=== PATIENT | male | born 1940 | race Caucasian/White ===

== ENCOUNTER 2022-05-05 11:32 | Outpatient (REF) | payer MEDICARE, OTHER, SELFPAY ==
[2022-05-05 12:45] LABS: Influenza A PCR NEGATIVE (Negative); Influenza B PCR NEGATIVE (Negative); Resp Syncy Virus RNA Qual PCR POSITIVE (Negative); SARS COV2 PCR INHOUSE NEGATIVE (Negative)
== END 2022-05-05 11:33 | disposition home or self-care (01) ==
LOC: HO.LNP 11:32
PROVIDERS: Visit Provider Nurse Practitioner Family
DX: Z20.822 Contact with and (suspected) exposure to COVID-19 (principal); B34.9 Viral infection, unspecified
CPT/HCPCS: 0241U

== ENCOUNTER 2023-05-24 05:44 | Emergency (ER) | payer MEDICARE, OTHER, SELFPAY ==
[2023-05-24 05:48] VITALS: BP 129/71; PULSE 76; RESP 18; TEMP 36.7; O2SAT 99; BMI 29.3
[2023-05-24 07:57] VITALS: BP 140/70; PULSE 76; RESP 15; TEMP 36.8; O2SAT 96
--- NOTE | 2023-05-24 08:45 | ED.GENADULT ---
HPI - General Adult General Chief complaint: General Medical Stated complaint: Fever Time Seen by Provider: 05/24/23 07:54 Source: patient and family Mode of arrival: ambulatory History of Present Illness HPI narrative: This is an 82-year-old male with a history of prostate cancer as well as MSD in comes in with 2 weeks of fevers/chills, fatigue, productive cough, lethargy, decreased appetite but denies any nausea or vomiting but has had persistent diarrhea. Patient states that he saw his physician couple of weeks ago and that he was evaluated at [facility] Emergency Room last week. Related Data Home Medications Medication Instructions Recorded Confirmed apalutamide 60 mg tablet (Erleada) 240 mg PO DAILY 05/04/22 aspirin 81 mg chewable tablet 162 mg PO DAILY 05/04/22 (Pipo Chewable Low Dose Aspirin) atorvastatin 40 mg tablet 40 mg PO DAILY 05/04/22 clopidogrel 75 mg tablet 75 mg PO DAILY 05/04/22 cyanocobalamin (vitamin B-12) 3,000 mcg PO DAILY 05/04/22 2,000 mcg tablet fenofibrate micronized 67 mg 67 mg PO DAILY 05/04/22 capsule ferrous sulfate 325 mg (65 mg 325 mg PO DAILY 05/04/22 iron) tablet metoprolol succinate 50 mg 50 mg PO BID 05/04/22 tablet,extended release 24 hr omeprazole 20 mg capsule,delayed 20 mg PO DAILY 05/04/22 release Previous Rx's Medication Instructions Recorded sulfamethoxazole 800 1 tab PO Q12H 10 days #20 tabs 07/19/22 mg-trimethoprim 160 mg tablet (Bactrim DS) Allergies Allergy/AdvReac Type Severity Reaction Status Date / Time Penicillins Allergy Intermediate Hives Verified 05/24/23 05:53 Review of Systems Review of Systems: Pertinent positives and negatives as stated in HPI [facility] Past Medical History Source: nursing notes reviewed Onset Date is defined in the Problem List Problems that require an onset date and time if occurred within 24 hrs of arrival to the ED Aortic Dissection and Rupture; Neurologic impairment; Cardiopulmonary Arrest; Endotracheal Intubation; Insertion or Replacement of Mechanical Circulatory Assist Device Medical History FHx: total knee replacement Myocardial infarct, old Hypertension MDS (myelodysplastic syndrome) Metastatic bone tumor Prostate cancer Surgical History H/O toe surgery S/P trigger finger release S/P TURP H/O rotator cuff surgery H/O neck surgery History of back surgery History of heart artery stent Social History Social History Patient Tobacco Use Status: Former Tobacco user Smoked in Last 30 Days: No Use of substances other than those prescribed or required for medical reasons: No Advance Directives: No Advance Directives Information Provided: Yes Physical Exam ED Vital Signs: Vital Signs - 24 hr 05/24/23 05:48 05/24/23 07:57 05/24/23 10:25 Temperature 98.1 F 98.2 F 98.7 F Pulse Rate 76 76 73 Respiratory Rate 18 15 12 Blood Pressure 129/71 140/70 H 114/54 L Pulse Oximetry 99 96 98 Oxygen Delivery Method Room Air Room Air Room Air BMI result Body Mass Index 29.3 VITAL SIGNS: Reviewed. GENERAL: Chronically ill, well nourished, in no acute distress. HEAD: Normocephalic/atraumatic EYES: PERRLA, EOMI EARS: Ext canals without abnormality NOSE: Nares patent bilateral OROPHARYNX: no oral lesions noted, posterior pharynx clear, dry mucosa NECK: Supple, no adenopathy LUNGS: Normal breath sounds. No adventitious sounds or accessory muscle use. SpO2<96> CARDIOVASCULAR: Regular rate and rhythm without noted murmurs ABDOMEN: Soft, non-tender, non-distended with bowel sounds. MUSCULOSKELETAL: No tenderness, deformities, or effusions noted on gross inspection. EXTREMITIES: No cyanosis, clubbing or edema. SKIN: Inspection of the skin reveals no rashes NEUROLOGIC: Alert and oriented x 4. Strength and sensation to light touch were grossly intact x 4. Medical Decision Making Medical Decision Making MDM Narrative: 82-year-old male with history and clinical presentation of having 2 different types of cancers, denies any recent medication changes or new medications. I suspect that he is having a combination of symptoms related to underlying cancer, possible viral illness, he certainly has a component of dehydration and will evaluate stool samples although no history of antibiotic use. Was informed that Dr. Tracey would be unable to take my call. I reviewed all investigations and hematologic indices are consistently stable when compared to documentation obtained from [facility] with a noted leukopenia as well as a normocytic anemia, thrombocytopenia, without evidence of bleeding. Chemistry indices are grossly within normal limits without REBEL her electrolytes/liver enzymes derangements, high sensitivity troponin although detectable is not associated with any acute changes on the EKG. Urinalysis is negative for UTI or hematuria and viral testing is negative for influenza/RSV/COVID. On re-evaluation, patient still feels fatigued, we discussed increasing calorie consumption despite decrease in appetite. In addition, he is otherwise hemodynamically stable, he has not been febrile since being here in the emergency room. He is otherwise discharged home with a list of potential primary care providers. Chest x-ray does demonstrate a possible sclerotic rib lesion, this will be communicated in the discharge diagnoses. Differential Diagnosis Differential Diagnoses: The differential diagnosis associated with the presentation includes Please see the discussion above Admission/Observation Consideration of admission/observation: Escalation of care including admission/observation considered Please see the discussion above Consult Healthcare Provider Management of the patient was discussed with: Tooth Cutter Please see the discussion above Lab Data MDM Lab Attestation statement: I reviewed the patient's lab results. Please see the discussion above 05/24/23 09:55 05/24/23 09:55 Labs: Lab Results 05/24/23 05/24/23 Range/Units 08:16 09:55 WBC 2.1 L (4.8-10.8) X10*3/uL RBC 3.03 L (4.60-5.80) X10*6/uL Hgb 8.4 L (14.0-18.0) g/dl Hct 25.6 L (42.0-52.0) % MCV 84.5 (80.0-98.0) fL MCH 27.7 (27.0-33.0) pg MCHC 32.8 (31.0-36.0) g/dl RDW 20.4 H (11.0-16.0) % Plt Count 139 L (160-400) X10*3/uL MPV 10.7 (9.4-12.4) fL Immature Gran % (Auto) 1.9 H (0.0-0.4) % Neut % (Auto) 61.8 (45-73) % Lymph % (Auto) 21.3 (20-40) % [place] % (Auto) 11.6 H (2-11) % Eos % (Auto) 3.4 (0-4) % Baso % (Auto) 0.0 (0-2) % Lymph # (Auto) 0.4 L (1.2-4.9) X10*3/uL [place] # (Auto) 0.2 (0.1-1.2) X10*3/uL Eos # (Auto) 0.1 (0.0-0.4) X10*3/uL Baso # (Auto) 0.0 (0.0-0.2) X10*3/uL Abs Immat Gran (auto) 0.04 H (0.00-0.03) X10*3/uL Absolute Neuts (auto) 1.3 L (2.0-8.3) x10*3/uL Absolute Nucleated RBC 0.000 (0.0-0.012) X10*3/uL Nucleated RBC % (auto) 0.0 (0.0-0.2) /100WBC Smear Tech's Comments VERIFIED Sodium 135 (135-145) mmol/L Potassium 4.3 (3.3-5.1) mmol/L Chloride 103 (96-108) mmol/L Carbon Dioxide 23 (22-29) mmol/L Anion Gap 13 (12-20) BUN 13 (9-16) mg/dL Creatinine 0.84 (0.5-1.4) mg/dL Estim Creat Clear Calc 72.9 Estimated GFR > 60 Random Glucose 107 (60-115) mg/dL Calcium 9.7 (8.4-10.2) mg/dL Magnesium 1.7 (1.6-2.6) mg/dL Total Bilirubin 0.4 (0.0-1.0) mg/dL AST 23 (5-37) U/L ALT 7 (0-40) U/L Alkaline Phosphatase 29 L (39-117) U/L Troponin I High Sens 6.2 (<3.5-35.0) ng/L Total Protein 6.5 (6.5-8.0) g/dL Albumin 3.5 (3.5-5.0) g/dL Urine Color Yellow Urine Appearance Cloudy Urine pH 5.5 (5.0-9.0) Ur Specific [place] 1.025 (1.005-1.025) Urine Protein 30 (1+) H (Neg-Trace) mg/dL Urine Glucose (UA) Negative (Negative) mg/dL Urine Ketones Trace (Negative) mg/dL Urine Blood Negative (Negative) Urine Nitrite Negative (Negative) Ur Leukocyte Esterase Negative (Negative) Urine RBC 0-2 (0-2) /HPF Urine WBC 0-5 (0-5) /HPF Ur Squamous Epith Cells 0-2 (0-2) /HPF Urine Bacteria None Seen (None Seen) Hyaline Casts 11-20 (0-2) /LPF Influenza Type A (PCR) NEGATIVE (Negative) Influenza Type B (PCR) NEGATIVE (Negative) RSV RNA Qual (PCR) NEGATIVE (Negative) SARS-CoV-2 RNA (RT-PCR) NEGATIVE (Negative) Independent Interpretation I performed an independent interpretation of an: EKG Interpretation: Pulse sinus rhythm, HR-77, LBBB at baseline, no STEMI, CA/QTC is within normal limits. Radiology Impression Discussion of test interpretation with radiology: I have reviewed the radiologist's reading. Radiologist Impression: Please see the discussion above External Record Review External record reviewed: Prior outpatient labs Chronic Conditions Patient?s care impacted by: Other Prostate cancer, bone marrow cancer Critical Care Time Critical Care Time Critical Care Time: Yes Total Critical Care Time: 60 Attestation: I personally attest to this time spent taking care of the patient. Discharge Plan Discharge Clinical Impression: Fatigue, Rib lesion Patient Disposition: Home, Self-Care Instructions: Fatigue (ED) Additional Instructions: 1. Please call the office of Dr. Tracey today, the note has been copied to his office. 2. 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 3. You have been given a list of primary care providers. Return to the ER for any worsening symptoms. Prescriptions: No Action sulfamethoxazole-trimethoprim [Bactrim DS] 800-160 mg tablet 1 tab PO Q12H 10 Days Qty: 20 0RF clopidogrel 75 mg tablet 75 mg PO DAILY fenofibrate micronized 67 mg capsule 67 mg PO DAILY metoprolol succinate 50 mg tablet extended release 24 hr 50 mg PO BID Erleada 60 mg tablet 240 mg PO DAILY atorvastatin 40 mg tablet 40 mg PO DAILY omeprazole 20 mg capsule,delayed release(DR/EC) 20 mg PO DAILY aspirin [Pipo Chewable Aspirin] 81 mg tablet,chewable 162 mg PO DAILY cyanocobalamin (vitamin B-12) 2,000 mcg tablet 3,000 mcg PO DAILY ferrous sulfate 325 mg (65 mg iron) tablet 325 mg PO DAILY
[2023-05-24 10:25] VITALS: BP 114/54; PULSE 73; RESP 12; TEMP 37.1; O2SAT 98
--- NOTE | 2023-05-24 11:24 | MHC.EDTECH ---
DR CORY LOPEZ [phone] [facility]
[2023-05-24 13:06] VITALS: BP 104/73; PULSE 79; RESP 14; TEMP 36.8; O2SAT 96
== END 2023-05-24 13:39 | disposition home or self-care (01) ==
PROVIDERS: Emergency Provider Student in an Organized Health Care Education/Training Program
DX: R53.83 Other fatigue (principal); M89.9 Disorder of bone, unspecified; R50.9 Fever, unspecified; Z20.822 Contact with and (suspected) exposure to COVID-19; Z20.828 Contact with and (suspected) exposure to other viral communicable diseases; C61 Malignant neoplasm of prostate; C79.51 Secondary malignant neoplasm of bone
CPT/HCPCS: 0241U; 36415; 71046; 80053; 81001; 83735; 84484; 85025; 93005; 99283; 99284

== ENCOUNTER → 2023-05-24 06:03 | Outpatient (BNV) | payer MEDICARE, OTHER, SELFPAY | PROVIDERS: Emergency Provider Student in an Organized Health Care Education/Training Program; Visit Provider Internal Medicine Cardiovascular Disease | DX: R50.9 Fever, unspecified (principal) | CPT/HCPCS: 93010 ==

== ENCOUNTER 2023-10-19 13:55 | Outpatient (AMB) | payer MEDICARE, OTHER, SELFPAY ==
[2023-10-19 13:58] VITALS: BP 122/60; PULSE 63; O2SAT 98; BMI 30.7
--- NOTE | 2023-10-19 13:58 | A.OFFPC_ITS ---
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 Chronic Care F/U (cataracts) Cephalometric Tracer Required: No Allergies Penicillins Allergy (Intermediate, Verified 10/19/23 13:59) Hives Medication List - Last Reconciled 10/19/23 by Josafat Hawthorne MD apalutamide (Erleada) 240 mg PO DAILY ascorbic acid (vitamin C) 1 g PO Q6H aspirin (Pipo Chewable Low Dose Aspirin) 162 mg PO DAILY atorvastatin 40 mg PO DAILY calcium carb,lactat-vitamin D3 200 mg-6.25 mcg (250 unit) 1 tab PO DAILY cyanocobalamin (vitamin B-12) 3,000 mcg PO DAILY fenofibrate micronized 67 mg PO DAILY leuprolide (Lupron Depot) 3.75 mg IM .Q6 month metoprolol succinate ER 100 mg PO DAILY wr-up-qrljq-lutein-herbal 293 120 mcg-150 mcg -50 mg (Alive Men's 50 Plus Multivitamin) tabs PO omeprazole 20 mg PO DAILY Tobacco use date assessed: 10/19/23 Fall risk assessment: No Falls in past year Last assessed Fall Risk: 10/19/23 Dental Screening Dental Screen Date: 10/19/23 Did you have a dental visit in the last 12 months?: Yes Did you have a dental problem in the last 6 months where you did not have access to dental care?: No Was dental information given to patient?: Patient has dentist HPI 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 Cataract surgery yesterday [facility] Dr. Lawton. Patient complains of back pain more on the left lower back denies any fall or trauma and was asking for referral for ortho. But with do not have any of the other x-rays or workup. Patient also gets blood work in [facility]. But states did not have any cholesterol test the last time. [facility] Medical History (Updated 10/19/23 @ 14:42 by Josafat Hawthorne MD) FHx: total knee replacement Myocardial infarct, old Hypertension MDS (myelodysplastic syndrome) Metastatic bone tumor Prostate cancer Surgical History (Updated 10/19/23 @ 14:22 by Josafat Hawthorne MD) History of appendectomy History of cataract surgery H/O toe surgery S/P trigger finger release S/P TURP H/O rotator cuff surgery H/O neck surgery History of back surgery History of heart artery stent Social History (Updated 10/19/23 @ 14:23 by Josafat Hawthorne MD) Housing: House Alcohol intake: current Patient Tobacco Use Status: Former Tobacco user Years Smoked: quit 1983 service: Yes Current occupational status: retired Cognitive needs: No Hearing needs: Yes Vision needs: Yes Questionnaire PHQ-9 Over the last 2 weeks, how often have you been bothered by any of the following problems? 1. Little interest or pleasure in doing things: not at all 2. Feeling down, depressed, or hopeless: not at all 3. Trouble falling or staying asleep, or sleeping too much: not at all 4. Feeling tired or having little energy: not at all 5. Poor appetite or overeating: not at all 6. Feeling bad about yourself - or that you are a failure or have let yourself or your family down: not at all 7. Trouble concentrating on things, such as reading the newspaper or watching television: not at all 8. Moving or speaking so slowly that other people could have noticed. Or the opposite - being so fidgety or restless that you have been moving around a lot more than usual: not at all 9. Thoughts that you would be better off or of hurting yourself in some way: not at all Total score: 0 Source: Developed by Drs. Brandon Webb, Jennifer Gray, Kevin Murray and colleagues, with an educational sofía from [employer]. Thrive Questionnaire Date Thrive assessed: 10/19/23 I am a: Patient What is your living situation today?: I have a steady place to live Within the past 12 months, did the food you bought not last and you didn't have the money to get more?: Never true Within the past 12 months, did you worry whether your food would run out before you got money to buy more?: Never true Do you have trouble paying for medicines?: No Do you have trouble getting transportation to medical appointments?: No Do you have trouble paying your heating and electricity bill?: No Do you have trouble taking care of your child, family member or friend?: No Do you have trouble with day-to-day activities such as bathing, preparing meals, shopping, managing finances, etc.?: No Are you currently unemployed and looking for a job?: No Are you interested in more education?: No Please select the resources that you would like help with: None Currently or been in a relationship where the following occur: no concerns reported THRIVE Score: 0 AUDIT C Alcohol Use Questionnaire (AUDIT-C) 1. How often do you have a drink containing alcohol?: Never 2. How many drinks containing alcohol do you have on a typical day when you are drinking?: 1 or 2 (0) 3. How often do you have six or more drinks on one occasion?: Never Total Score: 0 BENJI-7 AMB Questionnaire BENJI-7 Date BENJI - 7 assessed: 10/19/23 Feeling nervous, anxious, or on edge: 0 = Not at all Not being able to stop or control worryin = Not at all Worrying too much about different things: 0 = Not at all Trouble relaxin = Not at all Being so restless that it is hard to sit still: 0 = Not at all Becoming easily annoyed or irritable: 0 = Not at all Feeling afraid as if something awful might happen: 0 = Not at all Total BENJI-7 score (0-4 normal; 5-9 mild; 10-14 moderate; 15-21 severe): 0 Source: Developed by Drs. Brandon Webb, Jennifer Gray, Kevin Murray and colleagues, with an educational sofía from [employer]. BENJI-7 Assessment Billing BENJI-7 Assessment Tool: BENJI-7 Assessment 56618 Physical exam (Primary Care) Vital Signs: Oxygen Delivery Method Room Air 10/19/23 13:58 BMI result Body Mass Index 30.7 Tobacco/Smoking Status: Tobacco use Status Tobacco use date assessed 10/19/23 10/19/23 14:01 Patient Tobacco Use Status Former Tobacco user 10/19/23 14:01 Thrive Assessment: Date of Thrive Assessment Date Thrive assessed 10/19/23 10/19/23 14:01 Currently or been in a relationship where the following occur: no concerns reported Const General: alert; No acute distress Eyes Conjunctivae: conjunctivae normal Resp Auscultation: clear to auscultation bilaterally Cardio Rate: regular rate Rhythm: regular rhythm GI Inspection: Yes normal to inspection Extrem General: Yes normal to inspection and No edema Assessment and Plan Assessment & Plan (1) Coronary artery disease: Comment: 2014 stent [facility] [address] Rozina Fuller Code(s): I25.10 - Atherosclerotic heart disease of [place] coronary artery without angina pectoris Plan: Control the cholesterol, weight, blood pressure, on aspirin 81 mg once a day (2) Hypertension: Code(s): I10 - Essential (primary) hypertension Plan: Continue with blood pressure medication. Decrease salt intake and exercise taking metoprolol 100 mg once a day (3) Prostate cancer: Comment: 06/2021 [facility] [place] no surgery Code(s): C61 - Malignant neoplasm of prostate Plan: Patient presently on apalutamide patient follows up with urology and Hematology Oncology (4) Hypercholesterolemia: Code(s): E78.00 - Pure hypercholesterolemia, unspecified Plan: Avoid fried foods, chicken skin, eggs, butter margarine, pastries and meat. Be it pork or beef they have a lot of cholesterol LDL goal of less than 70(preferably less than 55) and triglyceride of less than 150 on atorvastatin 40 mg once a day fenofibrate 67 mg once a day (5) GERD (gastroesophageal reflux disease): Code(s): K21.9 - Gastro-esophageal reflux disease without esophagitis Plan: Avoid the foods that causes that usually spicy foods, tomato products, juices, coffee, soda and foods that your sensitive to. After eating do not lie down, allow 3-4 hours before in lie down. And keep the head of bed above 30 degrees to avoid the acid from going up. (6) Sacroiliac joint disease: Code(s): M53.3 - Sacrococcygeal disorders, not elsewhere classified Plan: X-ray is requested (7) Hip pain, right: Comment: -rays requested Code(s): M25.551 - Pain in right hip Plan: X-rays requested Orders: Orders XR lumbar spine 2-3V Today M53.3 - Sacrococcygeal disorders, not elsewhere classified XR hip RT w PEL1V Today M25.551 - Pain in right hip Complete Blood Count Auto Diff Today E78.00 - Pure hypercholesterolemia, unspecified Free T4 (Free Thyroxine) Today E78.00 - Pure hypercholesterolemia, unspecified Thyroid Stimulating Hormone Today E78.00 - Pure hypercholesterolemia, unspecified Lipid Panel Today E78.00 - Pure hypercholesterolemia, unspecified Vitamin B12 and Folate Today E78.00 - Pure hypercholesterolemia, unspecified XR sacroiliac joint min 3V Today M53.3 - Sacrococcygeal disorders, not elsewhere classified Comprehensive Met. Panel Today E78.00 - Pure hypercholesterolemia, unspecified Ferritin Today E78.00 - Pure hypercholesterolemia, unspecified IRON PROFILE Today E78.00 - Pure hypercholesterolemia, unspecified Reticulocyte Count Today E78.00 - Pure hypercholesterolemia, unspecified Medications: New tramadol 50 mg PO BEDTIME 7 tabs 0RF M53.3 - Sacrococcygeal disorders, not elsewhere classified Coding Level of Care Code New Pt Level 4 (76578) Complex EM visit Add On G2211 Diagnoses Coronary artery disease I25.10 Hypertension I10 Prostate cancer C61 Hypercholesterolemia E78.00 GERD (gastroesophageal reflux disease) K21.9 Sacroiliac joint disease M53.3 Hip pain, right M25.551 Additional Codes BENJI-7 Assessment Billing - BENJI-7 Assessment Tool: BENJI-7 Assessment 86366 ([id number])
== END 2023-10-19 14:46 | disposition home or self-care (01) ==
PROVIDERS: PCP Internal Medicine; Visit Provider Internal Medicine
DX: I25.10 Atherosclerotic heart disease of native coronary artery without angina pectoris (principal); I10 Essential (primary) hypertension; C61 Malignant neoplasm of prostate; E78.00 Pure hypercholesterolemia, unspecified; K21.9 Gastro-esophageal reflux disease without esophagitis; M53.3 Sacrococcygeal disorders, not elsewhere classified; M25.551 Pain in right hip
CPT/HCPCS: 99204; G2211

== ENCOUNTER 2024-03-14 08:55 | Outpatient (AMB) | payer MEDICARE, OTHER, SELFPAY ==
--- NOTE | 2024-03-14 09:15 | A.OFFPC_ITS ---
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: No Accompanied by: Self / Same As Patient Allergies Penicillins Allergy (Intermediate, Verified 03/14/24 09:24) Hives Medication List - Last Reconciled 03/14/24 by Fadumo Salinas PA-C apalutamide (Erleada) 240 mg PO DAILY ascorbic acid (vitamin C) 1 g PO Q6H aspirin (Pipo Chewable Low Dose Aspirin) 162 mg PO DAILY atorvastatin 40 mg PO DAILY calcium carb,lactat-vitamin D3 200 mg-6.25 mcg (250 unit) 1 tab PO DAILY cyanocobalamin (vitamin B-12) 3,000 mcg PO DAILY cyclobenzaprine 10 mg PO TID PRN fenofibrate micronized 67 mg PO DAILY leuprolide (Lupron Depot) 3.75 mg IM .Q6 month metoprolol succinate ER 100 mg PO DAILY nm-wv-toayx-lutein-herbal 293 120 mcg-150 mcg -50 mg (Alive Men's 50 Plus Multivitamin) tabs PO omeprazole 20 mg PO DAILY Tobacco use date assessed: 10/19/23 Fall risk assessment: No Falls in past year Last assessed Fall Risk: 03/14/24 Dental Screening Dental Screen Date: 10/19/23 HPI [place] [facility]-see comm HPI Details 83-year-old male with history of GERD, h ypertension, hypercholesterolemia, myelodysplastic syndrome and history of prostate cancer last seen by Dr. Hawthorne september 2023 coming in for preoperative appointment.? Patient is scheduled to undergo right eye cataract surgery with [facility]. Hypertension: Blood pressure at goal today 136/70 Presently on metoprolol 100 mg Patient has no history of CVA, CHF and has a nondiabetic. History of MO in 2021 with stent placement and follows with [facility] regularly. Follows with [facility]. [facility] Medical History FHx: total knee replacement Myocardial infarct, old Hypertension MDS (myelodysplastic syndrome) Metastatic bone tumor Prostate cancer Surgical History History of appendectomy History of cataract surgery H/O toe surgery S/P trigger finger release S/P TURP H/O rotator cuff surgery H/O neck surgery History of back surgery History of heart artery stent Social History Housing: House Alcohol intake: current Patient Tobacco Use Status: Former Tobacco user Years Smoked: quit 1983 e-Cigarette/Vaping Use: Never Used service: Yes Current occupational status: retired Cognitive needs: No Hearing needs: Yes Vision needs: Yes Questionnaire Thrive Questionnaire Date Thrive assessed: 10/19/23 AUDIT C Alcohol Use Questionnaire (AUDIT-C) 3. How often do you have six or more drinks on one occasion?: Never Total Score: 0 BENJI-7 AMB Questionnaire BENJI-7 Date BENJI - 7 assessed: 10/19/23 Source: Developed by Drs. Brandon Webb, Jennifer Gray, Kevin Murray and colleagues, with an educational sofía from [employer]. Review of Systems Const Denies body aches, Denies fatigue, Denies fever(s), Denies frequent falls, Denies headache(s) and Denies weakness Eyes Reports no additional complaints and Denies change in vision ENT Denies dysphagia, Denies dizziness, Denies facial pain, Denies headache(s), Denies nasal congestion and Denies odynophagia Card Denies chest pain, Denies syncope, Denies irregular heart rhythm, Denies leg edema, Denies lightheadedness, Denies dyspnea and Reports dyspnea on exertion (chronic) Resp Denies cough, Denies dyspnea and Reports dyspnea on exertion (chronic) GI Reports constipation, Denies dysphagia, Denies dyspepsia, Reports diarrhea, Den ies nausea, Denies odynophagia and Denies vomiting Reports no additional complaints Musc Denies back pain and Denies myalgias Skin/Breast Reports system reviewed and no additional complaints, except as documented Neuro Denies dizziness, Denies syncope, Denies frequent falls, Denies headache(s) and Denies weakness Psych Reports no additional complaints Endo Denies fatigue Physical exam (Primary Care) Vital Signs: Last Vital Signs Pulse 90 03/14/24 09:17 BP 136/70 03/14/24 09:35 Pulse Ox 97 03/14/24 09:17 Oxygen Delivery Method Room Air 03/14/24 09:17 BMI result Body Mass Index 32.0 Tobacco/Smoking Status: Tobacco use Status Tobacco use date assessed 10/19/23 03/14/24 09:17 Patient Tobacco Use Status Former Tobacco user 03/14/24 09:17 e-Cigarette/Vaping Use Never Used 03/14/24 09:21 Thrive Assessment: Date of Thrive Assessment Date Thrive assessed 10/19/23 03/14/24 09:17 Const General: cooperative, healthy appearing, comfortable and no acute distress Orientation/consciousness: patient oriented x3 HENMT Head: Yes normocephalic Ears: hearing grossly normal bilaterally General nose exam: Normal external nose present Eyes General: appearance normal, both eyes and all related structures Conjunctivae: conjunctivae normal Neck Neck: Yes full ROM and Yes no lymphadenopathy Resp Effort & Inspection: normal respiratory effort Auscultation: clear to auscultation bilaterally, no crackles, no rales, no rhonchi and no wheezes Cardio Rate: regular rate Rhythm: regular rhythm Skin General skin exam: no rashes or lesions noted Neuro General: patient oriented x3 Gait exam (Neuro): Normal gait present Extrem General: Yes normal to inspection, Yes full ROM and No edema Psych Affect: normal affect Attitude: cooperative Insight: Good insight present (Psych) Judgement: Good judgement present (Psych) Coding Level of Care Code Est Pt Level 4 (06440) Diagnoses Pre-op evaluation Z01.818 Assessment & Plan Assessment & Plan (1) Pre-op evaluation: Code(s): Z01.818 - Encounter for other preprocedural examination Category: Medical Plan: Regarding preop clearance, the patient is at moderate risk for proposed surgery due to age and comorbidities. Reviewed with the patient that no surgery is completely free of risk and that this examination is to assist the surgeon in reviewing informed consent. As modern cataract surgeries rarely cause any bleeding, he is advised that he should continue on his low dose Aspirin 81 mg QD; is advised that I will leave it up to the discretion of the staffing analyst performing the procedure if he is comfortable with patient being on aspirin or not for his eye surgery blood work evaluated. Unclear if patient requires EKG for preoperative evaluation. Ordered for EKG and we will reach out to [facility] for clarification and preoperative clearance will be given after this is resolved. Plan This note was constructed using voice recognition software. While every effort has been made to ensure accuracy and barrel leveler, still areas may have been included sometimes these areas may affect the content or meeting of the given symptoms. Total time spent caring for the patient today was 30 minutes. This includes time spent before the visit reviewing the chart, time spent during the visit, and time spent after the visit and documentation. Orders: Orders ECG 12 lead EKG Today Z01.818 - Encounter for other preprocedural examination Medications: New docusate sodium (Colace) 100 mg PO DAILY 30 caps 2RF wheat dextrin (Benefiber Sugar Free (dextrin)) mix into at least 4 oz water or juice before administering 1.75 grams PO TID 475 grams 0RF Refilled cyclobenzaprine 10 mg PO TID PRN 30 tabs 0RF muscle spasm M51.36 - Other intervertebral disc degeneration, lumbar region
[2024-03-14 09:17] VITALS: BP 140/80; PULSE 90; O2SAT 97; BMI 32.0
[2024-03-14 09:35] VITALS: BP 136/70
== END 2024-03-14 09:54 | disposition home or self-care (01) ==
PROVIDERS: PCP Internal Medicine
DX: Z01.818 Encounter for other preprocedural examination (principal)

== ENCOUNTER → 2024-03-14 08:55 | Outpatient (BNVA) | payer MEDICARE, OTHER, SELFPAY | PROVIDERS: PCP Internal Medicine | DX: Z01.818 Encounter for other preprocedural examination (principal) | CPT/HCPCS: 99212 ==

== ENCOUNTER 2024-03-18 09:52 | Outpatient (REF) | payer MEDICARE, OTHER, SELFPAY ==
--- NOTE | 2024-03-18 10:01 | ECG_ITS ---
Test Reason : preop Blood Pressure : / mmHG Vent. Rate : 084 BPM Atrial Rate : 084 BPM P-R Int : 000 ms QRS Dur : 124 ms QT Int : 398 ms P-R-T Axes : 000 037 113 degrees QTc Int : 470 ms Atrial-paced rhythm Left bundle branch block Abnormal ECG When compared with ECG of 24-MAY-2023 06:03, Electronic atrial pacemaker has replaced Sinus rhythm Referred By: Fadumo Salinas Electronically Signed By:MARGOTH NEGRON
[2024-03-18 10:07] LABS: MANUAL DIFF FLAG NO
[2024-03-18 11:03] LABS: Basophils Percent Auto 0.3 % (0-2); Eosinophils Absolute Auto 0.2 X10*3/uL (0.0-0.4); Hematocrit 35.4 % (42.0-52.0); Hemoglobin 12.2 g/dl (14.0-18.0); Imm Gran Abs Auto 0.01 X10*3/uL (0.00-0.03); Imm Gran Pct Auto 0.3 % (0.0-0.4); Immature Retic Fraction 16.4 % (2.3-13.4); Lymphocytes Absolute Auto 1.2 X10*3/uL (1.2-4.9); Lymphocytes Percent Auto 37.6 % (20-40); Mean Corpuscular HGB Conc 34.5 g/dl (31.0-36.0); Mean Corpuscular Hemoglobin 34.1 pg (27.0-33.0); Mean Corpuscular Volume 98.9 fL (80.0-98.0); Mean Platelet Volume 10.6 fL (9.4-12.4); Monocytes Absolute Auto 0.3 X10*3/uL (0.1-1.2); Monocytes Percent Auto 8.8 % (2-11); Neutrophils Absolute Auto 1.5 x10*3/uL (2.0-8.3); Platelet Count 165 X10*3/uL (160-400); Red Blood Count 3.58 X10*6/uL (4.60-5.80); Retic HGB Equivalent 37.3 pg (30.0-35.0); Reticulocyte Percent 1.3 % (0.5-1.8); Reticulocytes Absolute 0.046 X10*6/uL (0.026-0.095); White Blood Count 3.2 X10*3/uL (4.8-10.8)
[2024-03-18 12:05] LABS: Alanine Aminotransferase 15 U/L (0-40); Albumin Level 4.2 g/dL (3.5-5.0); Alkaline Phosphatase 37 U/L (39-117); Anion Gap 12 (12-20); Aspartate Amino Transferase 30 U/L (5-37); Bilirubin Total 0.4 mg/dL (0.0-1.0); Blood Urea Nitrogen 13 mg/dL (9-16); Calcium 10.7 mg/dL (8.4-10.2); Carbon Dioxide 28 mmol/L (22-29); Chloride 110 mmol/L (96-108); Cholesterol 195 mg/dL (<200); Estimated Glomerular Filt Rate > 60; Glucose Random 95 mg/dL (60-115); HDL Cholesterol 43 mg/dL (>40); Iron 150 mcg/dL (45-160); LDL Cholesterol Calculated 113 mg/dL (<100); Percent Iron Saturation 53 % (15-50); Potassium 4.6 mmol/L (3.3-5.1); Sodium 145 mmol/L (135-145); Total Iron Binding Capacity 282 mcg/dL (228-428); Total Protein 7.2 g/dL (6.5-8.0); Triglycerides 197 mg/dL (<150); Unsaturated Iron Binding 132 ug/dL
[2024-03-18 12:13] LABS: Ferritin 1163 ng/mL (20-250); Free T4 (Free Thyroxine) 0.82 ng/dL (0.71-1.85); Thyroid Stimulating Hormone 3.19 uIU/mL (0.32-4.0)
[2024-03-18 12:27] LABS: Folate 12.7 ng/mL (> or = 4.0); Vitamin B12 496 pg/mL (200-900)
== END 2024-03-18 09:53 | disposition home or self-care (01) ==
LOC: HO.XRAY 09:52
PROVIDERS: PCP Internal Medicine; Visit Provider Internal Medicine
DX: Z01.818 Encounter for other preprocedural examination (principal); E78.00 Pure hypercholesterolemia, unspecified
CPT/HCPCS: 36415; 80053; 80061; 82607; 82728; 82746; 83540; 84439; 84443; 85025; 85045; 93005

== ENCOUNTER → 2024-03-18 10:01 | Outpatient (BNV) | payer MEDICARE, OTHER, SELFPAY | PROVIDERS: PCP Internal Medicine; Visit Provider Internal Medicine | DX: I44.7 Left bundle-branch block, unspecified (principal) | CPT/HCPCS: 93010 ==

== ENCOUNTER 2024-03-31 10:52 | Outpatient (AMB) | payer MEDICARE, OTHER, SELFPAY ==
[2024-03-31 10:55] VITALS: BP 126/66; PULSE 87; O2SAT 95; BMI 31.9
--- NOTE | 2024-03-31 10:55 | A.OFFVIS_ITS ---
Intake Vital Signs 03/31/24 10:55 Height 5 ft 8 in Weight 209 lb 8 oz BMI 31.9 BP 126/66 Blood Pressure Location Lt brachial Position Sitting Pulse 87 Pulse Source Pulse Oximeter Pulse Oximetry (%) 95 Oxygen Delivery Method Room Air Intake Visit Reasons: AWV G0438 Allergies Penicillins Allergy (Intermediate, Verified 03/31/24 10:55) Hives Medication List - Last Reconciled 03/31/24 by Josafat Hawthorne MD apalutamide (Erleada) 240 mg PO DAILY ascorbic acid (vitamin C) 1 g PO Q6H aspirin (Pipo Chewable Low Dose Aspirin) 162 mg PO DAILY atorvastatin 40 mg PO DAILY cyanocobalamin (vitamin B-12) 3,000 mcg PO DAILY cyclobenzaprine 10 mg PO TID PRN docusate sodium (Colace) 100 mg PO DAILY fenofibrate micronized 67 mg PO DAILY leuprolide (Lupron Depot) 3.75 mg IM .Q6 month metoprolol succinate ER 100 mg PO DAILY lw-mz-crilc-lutein-herbal 293 120 mcg-150 mcg -50 mg (Alive Men's 50 Plus Multivitamin) tabs PO omeprazole 20 mg PO DAILY wheat dextrin (Benefiber Sugar Free (dextrin)) 1.75 grams PO TID HPI AWV G0438 HPI Details 83-year-old obese male with prostate can cer history, coronary artery disease hypertension hypercholesterolemia GERD lumbar degenerative disc disease coming in for annual well visit last seen for preoperative evaluation for catar act surgery March 14 2024. 1 fall leg left weakness, 5 months ago , and then 5 months ago had fallen, states left food sensitive. Dr. Tracey hematology, [facility], [place] cardiology andDr. Georges ophthalmology. has chaging BM - also having chemo today. R wrist has a line in [facility] Medical History (Updated 03/31/24 @ 12:10 by Josafat Hawthorne MD) FHx: total knee replacement Myocardial infarct, old Hypertension MDS (myelodysplastic syndrome) Metastatic bone tumor Prostate cancer Surgical History (Updated 03/31/24 @ 12:21 by Josafat Hawthorne MD) History of appendectomy History of cataract surgery H/O toe surgery S/P trigger finger release S/P TURP H/O rotator cuff surgery H/O neck surgery History of back surgery History of heart artery stent Social History (Updated 03/31/24 @ 12:21 by Josafat Hawthorne MD) Housing: House Alcohol intake: former Patient Tobacco Use Status: Former Tobacco user Years Smoked: quit 1983 e-Cigarette/Vaping Use: Never Used service: Yes Current occupational status: retired Cognitive needs: No Hearing needs: Yes Vision needs: Yes Questionnaire Medicare Wellness Checkup What is your age?: 80 or older What gender do you identify with?: male During the past 4 weeks, how much have you been bothered by emotional problems such as feeling anxious, depressed, irritable, sad or downhearted, and blue?: no t at all During the past 4 weeks, has your physical & emotional health limited your social activities with family, friends, neighbors, or groups?: not at all During the past 4 weeks, how much bodily pain have you generally had?: moderate pain During the past 4 weeks, was someone available to help you if you needed & wanted help?: yes, as much as I wanted During the past 4 weeks, what was the hardest physical activity you could do for at least 2 minutes?: very light Can you get to places out of walking distance without help? (For eg., can you travel alone on buses, taxis or drive your car?): Yes Can you go shopping for groceries or clothes without someone's help?: Yes Can you prepare your own meals?: Yes Can you do your housework without help?: No Because of any health problems, do you need the help of another person with your personal care needs such as eating, bathing, dressing or getting around the house?: No Can you handle your own money without help?: Yes During the past 4 weeks, how would you rate your health in general?: fair During the past 4 weeks how have things been going for you?: pretty well Are you having difficulties driving your car?: no Do you always fasten your seat belt when you are in a car?: yes, usually During past 4 weeks, have you been bothered by the following: sometimes: Tiredness or fatigue? and always: Sexual problems? Have you fallen 2 or more times in the past year?: Yes Are you afraid of falling?: Yes Are you a smoker?: no During the past 4 weeks, how many drinks of wine, beer, or other alcoholic beve rages did you have?: no alcohol at all Do you exercise for about 20 minutes 3 or more times a week?: no, I usually do not exercise this much Have you been given information to help with the following?: yes: Hazards in your house that might hurt you? and yes: Keeping track of your medications? How often do you have trouble taking medicines the way you have been told to take them?: I always take medicine as prescribed How confident are you that you can control & manage most of your health problems?: very confident What is your race?: White PHQ-9 Over the last 2 weeks, how often have you been bothered by any of the following problems? 1. Little interest or pleasure in doing things: not at all 2. Feeling down, depressed, or hopeless: not at all 3. Trouble falling or staying asleep, or sleeping too much: not at all 4. Feeling tired or having little energy: not at all 5. Poor appetite or overeating: not at all 6. Feeling bad about yourself - or that you are a failure or have let yourself or your family down: not at all 7. Trouble concentrating on things, such as reading the newspaper or watching television: not at all 8. Moving or speaking so slowly that other people could have noticed. Or the opposite - being so fidgety or restless that you have been moving around a lot more than usual: not at all 9. Thoughts that you would be better off or of hurting yourself in some way: not at all Total score: 0 Depression Screening Interpretation: Negative Depression Screening Done: Yes 74435 - PHQ-9 Billing: Yes Source: Developed by Drs. Brandon Webb, Jennifer Gray, Kevin Murray and colleagues, with an educational sofía from [employer]. Review of Systems Const Denies poor appetite and Denies weakness Eyes Denies no additional complaints ENT Reports Normal hearing present, Denies dizziness, Denies nasal congestion, Denies tinnitus and Denies sore throat Card Denies chest pain, Denies syncope, Denies rapid heart rate and Denies dyspnea Resp Denies cough and Denies dyspnea GI Denies change in stool character, Reports constipation, Denies diarrhea, Denies nausea and Denies vomiting Denies dysuria and Denies urinary frequency Neuro Reports Normal hearing present, Denies confusion, Denies dizziness, Denies syncope and Denies weakness Psych Denies confusion Physical Exam Vital Signs: Last Vital Signs Pulse 87 03/31/24 10:55 BP 126/66 03/31/24 10:55 Pulse Ox 95 03/31/24 10:55 Oxygen Delivery Method Room Air 03/31/24 10:55 BMI result Body Mass Index 31.9 Const General: No confusion Orientation/consciousness: No confusion HEENT Head: Yes normocephalic Ears: external ears normal and TM's normal bilaterally Face and sinus: Yes normal facial exam Mouth: moist mucous membranes Throat: Yes tonsils normal Eyes Conjunctivae: conjunctivae normal Pupils: Equal, round and reactive pupils present and Pupil accommodation reflex normal Direct Ophthalmoscopy: normal light reflex Neck Neck: No lymphadenopathy Thyroid: Thyroid normal Chest Chest palpation & inspection: normal inspection of the chest Resp Effort & Inspection: normal respiratory effort and no audible wheezes Auscultation: clear to auscultation bilaterally, no crackles, no wheezes and lung sounds not diminished Cardio Rate: regular rate Rhythm: regular rhythm Peripheral pulses: radial pulses present and dorsalis pedis present GI Other: guaiac negative stools no prostate Palpation (GI): no masses Auscultation: normal bowel sounds and normoactive bowel sounds Male General Exam: Yes normal external exam Skin General skin exam: no rashes or lesions noted Rashes: no rashes Neuro General: No confusion Cranial nerves: Yes Equal, round and reactive pupils present and Yes Normal hearing present Cognition (Neuro): normal cognition Gait exam (Neuro): Normal gait present Motor exam (neuro): 5/5 motor strength present throughout Deep tendon reflexes (DTR's): Right brachioradialis reflex intensity grade: 2+, Left brachioradialis reflex intensity grade: 2+, Right patellar reflex intensity grade: 2+ and Left patellar reflex intensity grade: 2+ Extrem General: No edema Assessment & Plan Assessment & Plan (1) Medicare annual wellness visit, subsequent: Code(s): Z00.00 - Encounter for general adult medical examination without abnormal findings Plan: Patient is advised to eat healthy, keep well hydrated, keep active and have adequate sleep. (2) Prostate cancer: Comment: 06/2021 [facility] no surgery [facility] 11/08/2023 spine x-ray showing extensive osteoblastic metastasis throughout the lumbar spine and bony pelvis no pathologic fractures are seen severe degenerative changes in the lumbar spine. CT scan done of the abdomen pelvis showing numerous sclerotic metastasis throughout the bony pelvis sacrum and iliac normal-appearing sacroiliac joints. 07/10/2023 CT scan showing severe sclerotic metastasis within the right femur no fracture minimal degenerative changes in the right hip CT spine lumbar without contrast March 06 2024 extensive lytic and osteoblastic changes of the spine and pelvis consistent with diffuse metastatic disease no evidence of significant central canal stenosis neural foraminal narrowing at L3-4 L4-5 and L5-S1 secondary to bony hypertrophy Code(s): C61 - Malignant neoplasm of prostate Plan: Continue to follow-up with urology (3) Hypercholesterolemia: Code(s): E78.00 - Pure hypercholesterolemia, unspecified Plan: Avoid fried foods, chicken skin, eggs, butter margarine, pastries and meat. Be it pork or beef they have a lot of cholesterol LDL goal of less than 70 and triglyceride of less than 150 patient is on atorvastatin 40 mg once a day fenofibrate 67 mg once a day (4) GERD (gastroesophageal reflux disease): Code(s): K21.9 - Gastro-esophageal reflux disease without esophagitis Qualifiers: Esophagitis presence: without esophagitis Qualified Code(s): K21.9 - Gastro-esophageal reflux disease without esophagitis Plan: Avoid the foods that causes that usually spicy foods, tomato products, juices, coffee, soda and foods that your sensitive to. After eating do not lie down, allow 3-4 hours before in lie down. And keep the head of bed above 30 degrees to avoid the acid from going up. (5) Coronary artery disease: Comment: 2014 CT/2021 stent [facility] dr. Rozina Fuller Code(s): I25.10 - Atherosclerotic heart disease of [place] coronary artery without angina pectoris Qualifiers: Coronary Disease-Associated Artery/Lesion type: [place] artery [place] vs. transplanted heart: [place] heart Associated angina: without angina Qualified Code(s): I25.10 - Atherosclerotic heart disease of [place] coronary artery without angina pectoris Plan: Control the cholesterol, weight, blood pressure, diabetes continue with aspirin 81 mg once a day (6) Hypertension: Code(s): I10 - Essential (primary) hypertension Qualifiers: Hypertension type: primary hypertension Qualified Code(s): I10 - Essential (primary) hypertension Plan: Continue with blood pressure medication. Decrease salt intake and exercise patient is on metoprolol 100 mg once a day (7) Lumbar degenerative disc disease: Code(s): M51.36 - Other intervertebral disc degeneration, lumbar region Qualifiers: Disc-related pain type: discogenic back pain only Qualified Code(s): M51.360 - Other intervertebral disc degeneration, lumbar region with discogenic back pain only Plan: Concern also on history of the prostate cancer with diffuse metastatic disease. Orders: Orders Lipid Panel 3 Months E78.00 - Pure hypercholesterolemia, unspecified Complete Blood Count Auto Diff 3 Months E78.00 - Pure hypercholesterolemia, unspecified Comprehensive Met. Panel 3 Months E78.00 - Pure hypercholesterolemia, unspecified Reticulocyte Count 3 Months E78.00 - Pure hypercholesterolemia, unspecified Ferritin 3 Months E78.00 - Pure hypercholesterolemia, unspecified Thyroid Stimulating Hormone 3 Months E78.00 - Pure hypercholesterolemia, unspecified Free T4 (Free Thyroxine) 3 Months E78.00 - Pure hypercholesterolemia, unspecified Vitamin B12 and Folate 3 Months E78.00 - Pure hypercholesterolemia, unspecified Medications: New atorvastatin 80 mg PO DAILY 90 tabs 3RF E78.00 - Pure hypercholesterolemia, unspecified Quality Reporting (2019) Depression/Bipolar (159/160/161/177) PHQ-9: Total score: 0 Coding Level of Care Code Medicare Subsequent (G0439) Diagnoses Medicare annual wellness visit, subsequent Z00.00 Prostate cancer C61 Hypercholesterolemia E78.00 Gastroesophageal reflux disease without esophagitis K21.9 Esophagitis presence: without esophagitis Coronary artery disease involving [place] coronary artery of [place] heart without angina pectoris I25.10 Coronary Disease-Associated Artery/Lesion type: [place] artery [place] vs. transplanted heart: [place] heart Associated angina: without angina Primary hypertension I10 Hypertension type: primary hypertension Degeneration of intervertebral disc of lumbar region with discogenic back pain M51.360 Disc-related pain type: discogenic back pain only Additional Codes PHQ-9 - 23569 - PHQ-9 Billing: Yes ([id number])
== END 2024-03-31 12:42 | disposition home or self-care (01) ==
PROVIDERS: PCP Internal Medicine; Visit Provider Internal Medicine
DX: Z00.00 Encounter for general adult medical examination without abnormal findings (principal); C61 Malignant neoplasm of prostate; E78.00 Pure hypercholesterolemia, unspecified; K21.9 Gastro-esophageal reflux disease without esophagitis; I25.10 Atherosclerotic heart disease of native coronary artery without angina pectoris; I10 Essential (primary) hypertension; M51.360 Other intervertebral disc degeneration, lumbar region with discogenic back pain only

== ENCOUNTER → 2024-03-31 10:52 | Outpatient (BNVA) | payer MEDICARE, OTHER, SELFPAY | PROVIDERS: PCP Internal Medicine; Visit Provider Internal Medicine | DX: Z00.00 Encounter for general adult medical examination without abnormal findings (principal); C61 Malignant neoplasm of prostate; E78.00 Pure hypercholesterolemia, unspecified; K21.9 Gastro-esophageal reflux disease without esophagitis; I25.10 Atherosclerotic heart disease of native coronary artery without angina pectoris; I10 Essential (primary) hypertension; M51.360 Other intervertebral disc degeneration, lumbar region with discogenic back pain only | CPT/HCPCS: 96127 ==

== ENCOUNTER 2024-06-06 14:02 | Outpatient (AMB) | payer MEDICARE, OTHER, SELFPAY ==
[2024-06-06 14:04] VITALS: BP 118/62; PULSE 85; O2SAT 98; BMI 31.8
--- NOTE | 2024-06-06 14:04 | A.OFFPC_ITS ---
Vital Signs 06/06/24 14:04 Height 5 ft 8 in Weight 209 lb BMI 31.8 BP 118/62 Blood Pressure Location Lt brachial Position Sitting Pulse 85 Pulse Source Pulse Oximeter Pulse Oximetry (%) 98 Oxygen Delivery Method Room Air Intake Visit Reasons: Diarrhea Allergies Penicillins Allergy (Intermediate, Verified 06/06/24 14:04) Hives Tobacco use date assessed: 06/06/24 Fall risk assessment: No Falls in past year Last assessed Fall Risk: 06/06/24 Dental Screening Dental Screen Date: 06/06/24 Did you have a dental visit in the last 12 months?: No Did you have a dental problem in the last 6 months where you did not have access to dental care?: No Was dental information given to patient?: Patient has dentist HPI HPI Comments History of Present Illness Details 83 y/o male patient who presents to the clinic with c/o Diarrhea x 3-4 weeks now. His PMHX significant for prostate cancer as well as MSD. He reports having Diarrhea alternating with Constipation. He would usually take Imodium with good relief. He is currently taking Erleada and Lupron for Chemotherapy. Reports that he has been hydrating well with Propel water. [facility] Medical History (Updated 04/10/24 @ 12:02 by Josafat Hawthorne MD) FHx: total knee replacement Myocardial infarct, old Hypertension MDS (myelodysplastic syndrome) Metastatic bone tumor Prostate cancer Surgical History (Updated 03/31/24 @ 12:21 by Josafat Hawthorne MD) History of appendectomy History of cataract surgery H/O toe surgery S/P trigger finger release S/P TURP H/O rotator cuff surgery H/O neck surgery History of back surgery History of heart artery stent Social History (Updated 03/31/24 @ 12:21 by Josafat Hawthorne MD) Housing: House Alcohol intake: former Patient Tobacco Use Status: Former Tobacco user Tobacco use type: Cigarette Years Smoked: quit 1983 e-Cigarette/Vaping Use: Never Used Second Hand Smoke Exposure: No service: Yes Current occupational status: retired Cognitive needs: No Hearing needs: Yes Vision needs: Yes Questionnaire PHQ-9 Over the last 2 weeks, how often have you been bothered by any of the following problems? 1. Little interest or pleasure in doing things: not at all 2. Feeling down, depressed, or hopeless: not at all 3. Trouble falling or staying asleep, or sleeping too much: not at all 4. Feeling tired or having little energy: not at all 5. Poor appetite or overeating: not at all 6. Feeling bad about yourself - or that you are a failure or have let yourself or your family down: not at all 7. Trouble concentrating on things, such as reading the newspaper or watching television: not at all 8. Moving or speaking so slowly that other people could have noticed. Or the opposite - being so fidgety or restless that you have been moving around a lot more than usual: not at all 9. Thoughts that you would be better off or of hurting yourself in some way: not at all Total score: 0 Depression Screening Interpretation: Negative Depression Screening Done: Yes 46777 - PHQ-9 Billing: Yes Source: Developed by Drs. Brandon Webb, Jennifer Gray, Kevin Murray and colleagues, with an educational sofía from [employer]. Thrive Questionnaire Date Thrive assessed: 06/06/24 I am a: Patient What is your living situation today?: I have a steady place to live Within the past 12 months, did the food you bought not last and you didn't have the money to get more?: Never true Within the past 12 months, did you worry whether your food would run out before you got money to buy more?: Never true Do you have trouble paying for medicines?: No Do you have trouble getting transportation to medical appointments?: No Do you have trouble paying your heating and electricity bill?: No Do you have trouble taking care of your child, family member or friend?: No Do you have trouble with day-to-day activities such as bathing, preparing meals, shopping, managing finances, etc.?: No Are you currently unemployed and looking for a job?: No Are you interested in more education?: No Currently or been in a relationship where the following occur: No concerns reported THRIVE Score: 0 AUDIT C Alcohol Use Questionnaire (AUDIT-C) 3. How often do you have six or more drinks on one occasion?: Never Total Score: 0 BENJI-7 AMB Questionnaire BENJI-7 Date BENJI - 7 assessed: 06/06/24 Feeling nervous, anxious, or on edge: 0 = Not at all Not being able to stop or control worryin = Not at all Worrying too much about different things: 0 = Not at all Trouble relaxin = Not at all Being so restless that it is hard to sit still: 0 = Not at all Becoming easily annoyed or irritable: 0 = Not at all Feeling afraid as if something awful might happen: 0 = Not at all Total BENJI-7 score (0-4 normal; 5-9 mild; 10-14 moderate; 15-21 severe): 0 Source: Developed by Drs. Brandon Webb, Jennifer Gray, Kevin Murray and colleagues, with an educational sofía from [employer]. Review of Systems Const All systems reviewed & are unremarkable except as noted in HPI and below Physical exam (Primary Care) Vital Signs: Last Vital Signs Pulse 85 06/06/24 14:04 BP 118/62 06/06/24 14:04 Pulse Ox 98 06/06/24 14:04 Oxygen Delivery Method Room Air 06/06/24 14:04 BMI result Body Mass Index 31.8 Tobacco/Smoking Status: Tobacco use Status Tobacco use date assessed 06/06/24 06/06/24 14:08 Patient Tobacco Use Status Former Tobacco user 06/06/24 14:08 Tobacco use type Cigarette 06/06/24 14:08 e-Cigarette/Vaping Use Never Used 06/06/24 14:08 PHQ-9: PHQ-9 Score PHQ-9: Total score 0 06/06/24 14:08 Depression Screening Interpretation: Negative Thrive Assessment: Date of Thrive Assessment Date Thrive assessed 06/06/24 06/06/24 14:08 Currently or been in a relationship where the following occur: No concerns reported Const General: cooperative and no acute distress Nutritional Appearance: overweight Orientation/consciousness: patient oriented x3 Resp Effort & Inspection: normal respiratory effort and able to speak in complete sentences Auscultation: clear to auscultation bilaterally, no crackles, no rales, no rhonchi and no wheezes Cardio Heart sounds: S1 normal heart sound present and S2 normal heart sound present Skin General skin exam: no rashes or lesions noted Neuro General: patient oriented x3, gait normal and moves all extremities Psych Speech and movement: Normal speech and movement present Coding Level of Care Code Est Pt Level 4 (43433) Diagnoses Diarrhea, unspecified type R19.7 Diarrhea type: unspecified type Additional Codes PHQ-9 - 78990 - PHQ-9 Billing: Yes ([id number]) Time Spent (min) 20 Assessment & Plan Assessment & Plan (1) Diarrhea: Code(s): R19.7 - Diarrhea, unspecified Qualifiers: Diarrhea type: unspecified type Qualified Code(s): R19.7 - Diarrhea, unspecified Plan: Diarrhea related to Chemo vs Infectious. Advised Stool Sample, but Pt declined for now. Advised f/u with Oncology Recommended BLAND diet to liquid diet. Hydration with Electrolytes such as Gatorade. F/U with ED if not improved.
== END 2024-06-06 15:47 | disposition home or self-care (01) ==
PROVIDERS: PCP Internal Medicine; Visit Provider Nurse Practitioner Family
DX: R19.7 Diarrhea, unspecified (principal)

== ENCOUNTER → 2024-06-06 14:02 | Outpatient (BNVA) | payer MEDICARE, OTHER, SELFPAY | PROVIDERS: PCP Internal Medicine; Visit Provider Nurse Practitioner Family | DX: R19.7 Diarrhea, unspecified (principal) | CPT/HCPCS: 96127; 99212 ==

== ENCOUNTER 2024-06-24 13:14 | Outpatient (AMB) | payer MEDICARE, OTHER, SELFPAY ==
[2024-06-24 13:17] VITALS: BP 122/62; PULSE 88; O2SAT 98; BMI 32.1
--- NOTE | 2024-06-24 13:17 | MHC.PC.OV ---
Vital Signs 06/24/24 13:17 Height 5 ft 8 in Weight 211 lb BMI 32.1 BP 122/62 Blood Pressure Location Lt brachial Position Sitting Pulse 88 Pulse Source Pulse Oximeter Pulse Oximetry (%) 98 Oxygen Delivery Method Room Air Intake Visit Reasons: Retina surgery 07/17/24 Allergies Penicillins Allergy (Intermediate, Verified 06/24/24 13:17) Hives Medication List - Last Reconciled 06/24/24 by Josafat Hawthorne MD apalutamide (Erleada) 240 mg PO DAILY ascorbic acid (vitamin C) 1 g PO Q6H aspirin (Pipo Chewable Low Dose Aspirin) 162 mg PO DAILY atorvastatin 80 mg PO DAILY cyanocobalamin (vitamin B-12) 3,000 mcg PO DAILY fenofibrate micronized 67 mg PO DAILY leuprolide (Lupron Depot) 3.75 mg IM .Q6 month metoprolol succinate ER 100 mg PO DAILY ej-wb-exlwv-lutein-herbal 293 120 mcg-150 mcg -50 mg (Alive Men's 50 Plus Multivitamin) tabs PO omeprazole 20 mg PO DAILY Tobacco use date assessed: 06/06/24 Fall risk assessment: No Falls in past year Last assessed Fall Risk: 06/24/24 Dental Screening Dental Screen Date: 06/06/24 HPI Retina surgery 07/17/24 HPI Details preop retinal surgery R eye 07/17/2024. diarrhea 2 months. Patient was told by Oncology that these are side effect from medications. The patient is an 83-year-old male presenting with chronic back pain and persistent diarrhea. He has a history of lumbar degenerative disc disease and associated post-laminectomy syndrome with lumbar sacral spinal stenosis and spondylosis. These conditions have been previously managed with physical therapy after consultation with [facility]. The patient reports difficulty with activities such as climbing stairs, which has persisted for a long period, indicating limited exercise tolerance likely due to his cardiac and musculoskeletal conditions. In March, the patient was evaluated concerning diarrhea, which has persisted for the past two months without much variation, presenting as watery stools. He has not noted any blood in the stool, though sometimes it appears darker in color. Diarrhea has alternated with constipation previously, but this chronic version has debilitated him and is suspected of potentially correlating with his current medications, particularly those associated with cancer treatment. Additionally, the patient is scheduled for retinal surgery on July 17. Preparations for this procedure were previously postponed due to a nosebleed on the day of the surgery. Blood pressure remains well-controlled, and the patient is allergic to penicillin. His medication regimen includes several prescriptions for hypertension, prostate cancer, cholesterol, and GERD. His last laboratory work noted anemia and leukopenia but with normal electrolyte and renal functions, although calcium and iron levels were elevated. [facility] Medical History (Updated 06/24/24 @ 13:46 by Josafat Hawthorne MD) FHx: total knee replacement Myocardial infarct, old Hypertension MDS (myelodysplastic syndrome) Metastatic bone tumor Prostate cancer Surgical History (Updated 03/31/24 @ 12:21 by Josafat Hawthorne MD) History of appendectomy History of cataract surgery H/O toe surgery S/P trigger finger release S/P TURP H/O rotator cuff surgery H/O neck surgery History of back surgery History of heart artery stent Social History (Updated 03/31/24 @ 12:21 by Josafat Hawthorne MD) Housing: House Alcohol intake: former Patient Tobacco Use Status: Former Tobacco user Tobacco use type: Cigarette Years Smoked: quit 1983 e-Cigarette/Vaping Use: Never Used Second Hand Smoke Exposure: No service: Yes Current occupational status: retired Cognitive needs: No Hearing needs: Yes Vision needs: Yes Questionnaire PHQ-9 Over the last 2 weeks, how often have you been bothered by any of the following problems? 1. Little interest or pleasure in doing things: not at all 2. Feeling down, depressed, or hopeless: not at all 3. Trouble falling or staying asleep, or sleeping too much: not at all 4. Feeling tired or having little energy: not at all 5. Poor appetite or overeating: not at all 6. Feeling bad about yourself - or that you are a failure or have let yourself or your family down: not at all 7. Trouble concentrating on things, such as reading the newspaper or watching television: not at all 8. Moving or speaking so slowly that other people could have noticed. Or the opposite - being so fidgety or restless that you have been moving around a lot more than usual: not at all 9. Thoughts that you would be better off or of hurting yourself in some way: not at all Total score: 0 Depression Screening Interpretation: Negative Depression Screening Done: Yes 14255 - PHQ-9 Billing: Yes Source: Developed by Drs. Brandon Webb, Jennifer Gray, Kevin Murray and colleagues, with an educational sofía from [employer]. Thrive Questionnaire Date Thrive assessed: 06/06/24 AUDIT C Alcohol Use Questionnaire (AUDIT-C) 3. How often do you have six or more drinks on one occasion?: Never Total Score: 0 BENJI-7 AMB Questionnaire BENJI-7 Date BENJI - 7 assessed: 06/06/24 Source: Developed by Drs. Brandon Webb, Jennifer Gray, Kevin Murray and colleagues, with an educational sofía from [employer]. Review of Systems Const Denies poor appetite and Denies weakness Eyes Denies no additional complaints ENT Reports Normal hearing present, Denies dizziness, Denies nasal congestion, Denies tinnitus and Denies sore throat Card Denies chest pain, Denies syncope, Denies rapid heart rate and Denies dyspnea Resp Denies cough and Denies dyspnea GI Denies change in stool character, Reports constipation, Denies diarrhea, Denies nausea and Denies vomiting Denies dysuria and Denies urinary frequency Neuro Reports Normal hearing present, Denies confusion, Denies dizziness, Denies syncope and Denies weakness Psych Denies confusion Physical exam (Primary Care) Vital Signs: Last Vital Signs Pulse 88 06/24/24 13:17 BP 122/62 06/24/24 13:17 Pulse Ox 98 06/24/24 13:17 Oxygen Delivery Method Room Air 06/24/24 13:17 BMI result Body Mass Index 32.1 Tobacco/Smoking Status: Tobacco use Status Tobacco use date assessed 06/06/24 06/24/24 13:21 Patient Tobacco Use Status Former Tobacco user 06/24/24 13:21 Tobacco use type Cigarette 06/24/24 13:21 e-Cigarette/Vaping Use Never Used 06/24/24 13:21 PHQ-9: PHQ-9 Score PHQ-9: Total score 0 06/24/24 13:28 Depression Screening Interpretation: Negative Thrive Assessment: Date of Thrive Assessment Date Thrive assessed 06/06/24 06/24/24 13:21 Const General: No confusion Orientation/consciousness: No confusion Eyes Conjunctivae: conjunctivae normal Resp Auscultation: clear to auscultation bilaterally Cardio Rate: regular rate Rhythm: regular rhythm GI Inspection: Yes normal to inspection Neuro General: No confusion Cranial nerves: Yes Normal hearing present Extrem General: Yes normal to inspection and No edema Coding Level of Care Code Est Pt Level 4 (58225) Diagnoses Coronary artery disease involving redding coronary artery of redding heart without angina pectoris I25.10 Associated angina: without angina Coronary Disease-Associated Artery/Lesion type: redding artery [place] vs. transplanted heart: redding heart Primary hypertension I10 Hypertension type: primary hypertension Prostate cancer C61 Hypercholesterolemia E78.00 Gastroesophageal reflux disease without esophagitis K21.9 Esophagitis presence: without esophagitis Preop exam for internal medicine Z01.818 Additional Codes PHQ-9 - 59081 - PHQ-9 Billing: Yes ([id number]) Assessment & Plan Assessment & Plan (1) Coronary artery disease: Comment: [address] [facility] [address] Rozina Fuller Code(s): I25.10 - Atherosclerotic heart disease of redding coronary artery without angina pectoris Category: Medical Qualifiers: Associated angina: without angina Coronary Disease-Associated Artery/Lesion type: redding artery [place] vs. transplanted heart: redding heart Qualified Code(s): I25.10 - Atherosclerotic heart disease of redding coronary artery without angina pectoris (2) Hypertension: Code(s): I10 - Essential (primary) hypertension Category: Medical Qualifiers: Hypertension type: primary hypertension Qualified Code(s): I10 - Essential (primary) hypertension (3) Prostate cancer: Comment: 06/2021 [facility] surgery [facility] 11/08/2023 spine x-ray showing extensive osteoblastic metastasis throughout the lumbar spine and bony pelvis no pathologic fractures are seen severe degenerative changes in the lumbar spine. CT scan done of the abdomen pelvis showing numerous sclerotic metastasis throughout the bony pelvis sacrum and iliac normal-appearing sacroiliac joints. 07/10/2023 CT scan showing severe sclerotic metastasis within the right femur no fracture minimal degenerative changes in the right hip CT spine lumbar without contrast March 06 2024 extensive lytic and osteoblastic changes of the spine and pelvis consistent with diffuse metastatic disease no evidence of significant central canal stenosis neural foraminal narrowing at L3-4 L4-5 and L5-S1 secondary to bony hypertrophy Code(s): C61 - Malignant neoplasm of prostate Category: Medical (4) Hypercholesterolemia: Code(s): E78.00 - Pure hypercholesterolemia, unspecified Category: Medical (5) GERD (gastroesophageal reflux disease): Code(s): K21.9 - Gastro-esophageal reflux disease without esophagitis Category: Medical Qualifiers: Esophagitis presence: without esophagitis Qualified Code(s): K21.9 - Gastro-esophageal reflux disease without esophagitis (6) Preop exam for internal medicine: Code(s): Z01.818 - Encounter for other preprocedural examination Category: Medical Plan: Concern that patient's activity is limited. Patient was advised to have the EKG done. Blood work was recently done and awaiting results. Ophthalmology procedure is of low risk for any cardiac complication. Thank you very much for letting me participate the care of this patient. Plan - Chronic Back Pain and Associated Conditions: Continue physical therapy as previously advised to manage lumbar degenerative changes, post-laminectomy syndrome, and spinal stenosis. - Diarrhea: Evaluate the potential for a gastrointestinal consult if symptoms persist post medication review, particularly concerning the medications for prostate cancer. Monitor the hydration status and intake. - Retinal Surgery Pre-op: Ensure cardiovascular and surgical risk management aligns pre-operatively, given the patient's history of coronary artery disease and limited physical activity tolerance. - Hypertension and Coronary Artery Disease: Maintain current pharmacotherapy as effective, including metoprolol for blood pressure and cardiovascular protection. - Anemia: Monitor complete blood count, acknowledging slight improvement in anemia from previous measures. Confirm hematology review acknowledges ongoing leukopenia management. - Hypercholesterolemia and GERD: Continue atorvastatin and omeprazole as per current regimen. - Preventive Care: Encourage any feasible lifestyle modifications to improve physical capacity and support overall health stability. Orders: Orders ECG 12 lead EKG Today Z01.818 - Encounter for other preprocedural examination
--- OUTSIDE RECORDS SUMMARY | 2024-06-24 13:27 | XMS_ITS | Data Portability ---
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 His neuralgia came back. He asks for another Depomedrol injection. I discussed with the patient for Depo Medrol injection to treat Occipital Neuralgia. Patient agreed to try. I prepared 80mg Depo Medrol mixed with 2cc 1% Xylocaine. I used sterile technique and injected to each occipital area. The patient tolerates the procedure well. I discussed common side effects. Regarding of hand tremor, He can continue primidone 250 mg qhs. Not available 07/29/2020 20:29:12 07/27/2021 07/27/2021 His hand tremor is worse since run of primidone 250 mg qhs. I will refill the promidone 250 mg qhs. He will continue it. His occipital neuralgia was helped by Depo Medrol injection before and it helped his neuralgia. He does not need injection now. He needs to focus on prostate cancer treatment. chart time 10 mins Not available 07/27/2021 10:26:08 Plan of Treatment Reminders Order Date Submit Date Provider Last Modified By Organization Details Last Modified Time Details Appointments None recorded. Lab None recorded. Referral None recorded. Procedures None recorded. Surgeries None recorded. Imaging None recorded. Medication Orders primidone 250 mg tablet 2020 021 gli3 [id number], [address], [place], [address], 20:21:08 primidone 250 mg tablet 2021 022 [id number], [address], [place], [place], [id number], 03:38:48 Patient TargetsNo targets recorded. Patient InstructionsNo instructions recorded. Reason for Referral None Reported. Problems No Known Problems Procedures Surgical History Date Name Laterality Status Provider Name and Address Organization Details Recorded Time Back Surgery completed Lori [facility] [place] 07/29/2020 15:09:05 replacement of bilateral knee joints completed Lori Lara [facility] [place] 07/29/2020 15:09:15 cervical discography completed Loriiain Lara [facility] [place] 07/29/2020 15:09:24 Unlisted procedure shoulder completed Lori Lara [facility] [place] 07/29/2020 15:09:38 terpineol measurement completed [facility] 07/29/2020 15:09:51 Carpal Tunnel Surgery completed [facility] 07/29/2020 15:10:06 Imaging Results None recorded. Procedure Notes None recorded. Medical Equipment None Reported. Allergies Allergen ID Allergen Name Allergen Category Reaction Reaction Severity Criticality Documentation Date Start Date Code Code System Note Provider Name and Address Organization Details Recorded Time 3830 Product containin g penicilli n and antibioti c (product) medicatio n hives Not available Not available 07/29/2020 92572 05 SNOMED Lori Lara [place] [facility] [place] 15:05:46 Medications Name Sig Start Date Stop Date Status Note LastModified by Organization Details LastModified Time phenylephri ne 1 mg/ml injection solution If erection remains full after 2 hours, first follow conservat yeni measure given. If erection still remains full after 4 hours, inject 50 units intracorp oreally. Repeat in 30 min if needed. After 2 unresolve d injection s, go to the ER immediate ly active Not Available Not Available No t Available trimix fa INJECT 30 UNITS intracorp oreally, 10 minutes BEFORE anticipat ed sex. If insuffici ent, increase DOSE 5 units each time but ON another DAY. If insuffici ent AFTER 4 attempts call [phone] FOR assistanc e. Max USE ONCE daily, 3 times PER WEEK. active Not Available Not Available No t Available atorvastati n 40 mg tablet TAKE ONE TABLET BY MOUTH AT BEDTIME active Not Available Not Available No t Available neomycin-po lymyxin-hyd rocort 3.5 mg/mL-10,00 0 unit/mL-1 % ear solution INSTILL FOUR DROPS TO THE AFFECTED EAR(S) THREE TIMES A DAY active Not Available Not Available No t Available bicalutamid e 50 mg tablet active Not Available Not Available Not Available metoprolol succinate ER 50 mg tablet,exte nded release 24 hr TAKE ONE TABLET BY MOUTH ONE TIME DAILY active Not Available Not Available No t Available hydrocodone 5 mg-acetamin ophen 325 mg tablet active Not Available Not Available No t Available amlodipine 2.5 mg tablet TAKE ONE TABLET BY MOUTH TWICE A DAY 07/27 completed Not Available Not Available Not Available metronidazo le 500 mg tablet TAKE ONE TABLET BY MOUTH EVERY 8 HOURS FOR 14 DAYS 07/29 completed Not Available Not Available Not Available clopidogrel 75 mg tablet active Not Available Not Available Not Available fenofibrate micronized 67 mg capsule TAKE ONE CAPSULE BY MOUTH ONE TIME DAILY active Not Available Not Available No t Available ciprofloxac in 500 mg tablet 07/27 completed Not Available Not Available Not Available sulfamethox azole 800 mg-trimetho prim 160 mg tablet active Not Available Not Available Not Available tramadol 50 mg tablet active Not Available Not Available No t Available primidone 250 mg tablet Take 1 tablet every day by oral route in the evening. active Not Available Not Available No t Available neomycin-po lymyxin-dex ameth 3.5 mg/mL-10,00 0 unit/mL-0.1 % eye drops active Not Available Not Available Not Available metoprolol tartrate 50 mg tablet active Not Available Not Available No t Available nitroglycer in 0.4 mg sublingual tablet active Not Available Not Available Not Available furosemide 20 mg tablet TAKE ONE TABLET BY MOUTH ONE TIME DAILY 07/27 completed Not Available Not Available Not Available metoprolol succinate ER 25 mg tablet,exte nded release 24 hr 07/27 completed Not Available Not Available Not Available celecoxib 100 mg capsule active Not Available Not Available Not Available fluticasone propionate 50 mcg/actuati on nasal spray,suspe nsion active Not Available Not Available Not Available mometasone 0.1 % topical cream active Not Available Not Available Not Available Autoject 2 Injection Device subcutaneou s insulin pen USE DIRECTED active Not Available Not Available No t Available Alinia 500 mg tablet 07/27 completed Not Available Not Available Not Available levocetiriz ine 5 mg tablet active Not Available Not Available Not Available Brilinta 90 mg tablet active Not Available Not Available No t Available Vitals Date Recorded Body height Body mass index (BMI) Body weight Respiratory rate Body temperature Heart rate Systolic blood pressure Diastolic blood pressure Provider Name and Address Organization Details Last Updated DateTime 2 172.72 cm 29.8 kg/m2 06859.1 g 14 /min 96.8 [degF] 67 /min 142 mm[Hg] 82 mm[Hg] Jessie Arias [facility] 2 10:07:15 Date Recorded Body height Body mass index (BMI) Body weight Respiratory rate Body temperature Heart rate Systolic blood pressure Diastolic blood pressure Provider Name and Address Organization Details Last Updated DateTime 1 172.72 cm 31.9 kg/m2 28115.4 g 16 /min 98.1 [degF] 64 /min 142 mm[Hg] 88 mm[Hg] Lori Lara [facility] 1 15:11:20 Social History Question Answer Notes LastModified by Organizat ion Details LastModified Time Tobacco Smoking Status Former Smoker Lori L[place] [facility] [place] 07/29/2020 15:07:12 Do You Have An Advance Directive? Yes Information not available 07/29/2020 What Is Your Level Of Alcohol Consumption? Moderate Information not available 07/29/2020 What Is Your Level Of Caffeine Consumption? Occasional Information not available 07/29/2020 Currently No Information not available 07/29/2020 What Type Of Diet Are You Following? REGULAR Information not available 07/29/2020 Do You Or Have You Ever Used E-cigarettes Or Vape? Never Used Electronic Cigarettes Information not available 07/29/2020 Which Of Your Hands Is Dominant? Right Information not available 07/29/2020 Live Alone Or With Others? Alone Information not available 07/29/2020 What Was The Date Of Your Most Recent Tobacco Screening? 07/29/2020 Information not available 07/29/2020 Do You Or Have You Ever Used Smokeless Tobacco? Never Used Smokeless Tobacco Information not available 07/29/2020 How Much Tobacco Do You Smoke? 2 PPD Information not available 07/29/2020 General Stress Level Low Information not available 07/29/2020 Do You Use Any Illicit Or Recreational Drugs? No Information not available 07/29/2020 Sex: Male Functional Status Question Answer Note LastModified by Organization D etails LastModified Time What is your exercise level? Moderate Information not available 07/29/2020 Mental Status Question Answer Note LastModified by Organization D etails LastModified Time Do you have difficulty concentrating, remembering or making decisions? No Information no t available 07/29/2020 Family History Nothing Reported. Medical History No medical history recorded. Past Encounters Encounter ID Performer Location Encounter Start Date Encounter Closed Date Diagnosis/Indication Diagnosis SNOMED-CT Code Diagnosis ICD10 Code Diagnosis Note [id number] Gautam HEATH MD Main Office [address] [facility] [facility] [address] [place] [address] 07/29/2020 14:58:40 07/29/2020 15:50:38 Cervico-occipital neuralgia 58865777 M54.81 Essential tremor 3083099 09 G25.0 Gautam HEATH MD Main Office [facility] [address] [place] [address] 07/27/2021 09:57:10 07/27/2021 10:23:25 Cervico-occipital neuralgia 88995854 M54.81 Essential tremor 4268110 09 G25.0 Health Concerns Section Related Observation LastModified by Organization Detai ls LastModified Time None Recorded Concern Status LastModified by Organization Details LastModified Time None Recorded Advance Directives Directive Y: Payers Encounter Date Sequence Insurance Name Policy Number Policy Kelley Covered Member ID Kelley Member ID Guarantor Name 07/29/2020 1 [place]ARE[place] [employer] Ploof Jr [id number] [employer]oof 07/29/2020 2 [employer] (MEDICARE SUPPLEMENT) [employer] Ploof [id number] [employer]oof 07/27/2021 1 [place] [employer] Ploof Jr [id number] [employer]oof 07/27/2021 2 [employer] (MEDICARE SUPPLEMENT) [employer] Ploof [id number] [employer] Notes Date Note Type Note Provider Name and Address Organization Details Recorded Time 07/29/2020 text/html This is a 79 yo patient who has worsening bilateral occipital neuralgia and essential tremors. He presented alone and history was getting from himself. I saw him one year ago. I did Depomedrol injection for his right occipital neuralgia one year ago with good response. His occipital neuralgia is back with shooting pain in the side of head. There is intermittent severe sharp pain in the top of head lasting one or two minutes. His hand tremor is much better since increased the dose of primidone 250 mg qhs. Gautam HEATH MD [address] [facility] [address], [place], [address], [facility] [place] 07/29/2020 20:30:19 07/27/2021 text/html This is an 80 yo patient who has stable bilateral occipital neuralgia and worsening of essential tremors. He presented alone and history was getting from himself. He run out primidone 250 mg qd in last few days and his hand tremor is much worse. He wants to have fill. I saw him one year ago. I did Depomedrol injection for his right occipital neuralgia before with good response. His occipital neuralgia is mild and tolerable. He was just found having prostate cancer and he is on IV treatment.face to face time 20 mins Gautam HEATH MD [address] [facility],[address], [place], [address], [facility] [place] 07/27/2021 10:26:24
--- OUTSIDE RECORDS SUMMARY | 2024-06-24 13:27 | XMS_ITS | Data Portability ---
Author Organization [facility], [facility] - 1 Address [address] [place] [address] Care Team Providers Care Community Specialist Name Role Phone ERICH MCGOVERN Primary Care Provider [phone] STONE HUITRON Referring Provider [phone] [place] OXYGEN OTHER [phone] Assessment No assessment recorded. Plan of Treatment Reminders Order Date Submit Date Provider Last Modified By Organization Details Last Modified Time Details Appointments None record ed. Lab None record ed. Referral None record ed. Procedures None record ed. Surgeries None record ed. Imaging None record ed. Medication Orders None record ed. Patient TargetsNo targets recorded. Patient Instructions Encounter Date Encounter Id Patient Instructions Last Modified By Organization Details Last Modified Time 06/04/2018 [id number] sleep apnea: car e instructions esotodelarosa 1 Not available 06/04/2018 12:04:23 CPAP titration study* - Split CHRISTEN Not available 07/17/2018 13:46:52 09/26/2018 [id number] sleep apnea: car e instructions esotodelarosa 1 Not available 09/26/2018 12:10:42 05/26/2020 [id number] sleep apnea: car e instructions esotodelarosa 1 Not available 05/26/2020 14:32:55 06/08/2021 [id number] sleep apnea: car e instructions esotodelarosa 1 Not available 06/08/2021 10:44:04 Reason for Referral None Reported. Results Created Date Observation Date Name Description Value Unit Range Abnormal Flag Note LastModifiedBy Organization Detail LastModifiedTime 06/04/1907/11/2016 noctu rnal pulse oxime try* No observ ation record ed. [email or web address] Not Available 2018 08:54:27 06/04/19 19 XR, chest No observ ation record ed. [email or web address] Not Available 2018 08:54:50 06/04/19 19 07/03/2016 CT, chest , w/ contr ast No observ ation record ed. [email or web address] Not Available 2018 08:55:30 06/04/19 19 07/05/2016 pulmo nary funct ion test* No observ ation record ed. [email or web address] Not Available 2018 08:56:03 06/04/19 19 08/29/2016 sleep study , basel ine diagn ostic polys omnog neris* No observ ation record ed. [email or web address] Not Available 15:29:53 06/10/19 19 04/23/2018 , echo ardio gram No observ ation record ed. [email or web address] Stone huitron MD ([facility] [employer]) [address] [facility] [address], [place], [address], 06/11/2018 21:21:30 07/17/19 19 07/14/2018 CPAP titra tion study * No observ ation record ed. [email or web address] [facility] ([facility] [address] [facility] [address], [place], [address], 07/17/2018 13:48:33 07/17/19 19 07/14/2018 CPAP titra tion study * No observ ation record ed. [email or web address] [facility] ([facility]) [address] [facility] [address], [place], [address], 07/18/2018 16:46:54 Result Notes None recorded. Procedures Surgical History Date Name Laterality Status Provider Name and Address Organization Details Recorded Time 09/27/19 [facility] Compl[facility] 09/26/2018 11:59:50 [facility]EN[facility]CTOMY [facility] 06/04/2018 11:23:50 [facility] 06/04/2018 11:23:55 HERNIA REPAIR completed [facility] 06/04/2018 11:24:05 procedure on back completed [facility] 06/04/2018 11:24:17 placement of stent completed [facility] 06/04/2018 11:24:28 cardiac pacemaker procedure completed [facility] 06/04/2018 11:24:38 Imaging Results Imaging Date Name Status LastModified by Organization Details LastModified Time 07/11/2016 nocturnal pulse oximetry* completed Information not available 06/05/2018 08:54:27 06/04/2018 XR, chest completed Information no t available 06/05/2018 08:54:50 07/03/2016 CT, chest, w/ contrast completed Information not available 06/05/2018 08:55:30 07/05/2016 pulmonary function test* completed Information not available 06/05/2018 08:56:03 08/29/2016 sleep study, baseline diagnostic polysomnogram* completed [email or web address] Information not available 07/11/2018 15:29:53 04/23/2018 US, echocardiogram completed [email or web address] Saray huitron MD ([facility]) [facility], [address], 06/11/2018 21:21:30 07/14/2018 CPAP titration study* completed [email or web address] [facility] ([facility]) [address], [address], 07/17/2018 13:48:33 07/14/2018 CPAP titration study* completed [email or web address] [facility] ([facility]) [address] [facility] [address], [place], [address], 07/18/2018 16:46:54 Procedure Notes None recorded. Medical Equipment None Reported. Allergies Allergen ID Allergen Name Allergen Category Reaction Reaction Severity Criticality Documentation Date Start Date Code Code System Note Provider Name and Address Organization Details Recorded Time 75536 Product containin g penicilli n and antibioti c (product) medicatio n Not available Not available Not available 06/04/2018 30523 05 SNOMED Claire Keren mccabe, MS - [facility] 9 11:17:25 Medications Name Sig Start Date Stop Date Status Note LastModified by Organization Details LastModified Time atorvastati n 40 mg tablet TAKE ONE TABLET BY MOUTH AT BEDTIME active Not Available Not Available No t Available primidone 50 mg tablet TAKE THREE TABLETS BY MOUTH EVERY EVENING 05/26 completed Not Available Not Available Not Available neomycin-po lymyxin-hyd rocort 3.5 mg/mL-10,00 0 unit/mL-1 % ear solution INSTILL FOUR DROPS TO THE AFFECTED EAR(S) THREE TIMES A DAY active Not Available Not Available No t Available diltiazem CD 180 mg capsule,ext ended release 24 hr 2020 active Not Available Not Available Not Avai lable metoprolol succinate ER 50 mg tablet,exte nded release 24 hr TAKE ONE TABLET BY MOUTH ONE TIME DAILY active Not Available Not Available No t Available isosorbide mononitrate ER 30 mg tablet,exte nded release 24 hr TAKE ONE TABLET BY MOUTH ONE TIME DAILY active Not Available Not Available No t Available clindamycin HCl 150 mg capsule 06/04 completed Not Available Not Available Not Available amlodipine 2.5 mg tablet TAKE ONE TABLET BY MOUTH TWICE A DAY active Not Available Not Available No t Available metronidazo le 500 mg tablet TAKE ONE TABLET BY MOUTH EVERY 8 HOURS FOR 14 DAYS 06/08 completed Not Available Not Available Not Available clopidogrel 75 mg tablet TAKE ONE TABLET BY MOUTH ONE TIME DAILY active Not Available Not Available No t Available fenofibrate micronized 67 mg capsule TAKE ONE CAPSULE BY MOUTH ONE TIME DAILY active Not Available Not Available No t Available ciprofloxac in 500 mg tablet 06/08 completed Not Available Not Available Not Available hydrocodone 10 mg-acetamin ophen 325 mg tablet 06/04 completed Not Available Not Available Not Available aspirin 81 mg tablet,jaime yed release Take 1 tablet every day by oral route. active Not Available Not Available No t Available tramadol 50 mg tablet TAKE ONE TABLET BY MOUTH THREE TIMES A DAY NEEDED FOR 7 DAYS 06/04 completed Not Available Not Available Not Available sildenafil 100 mg tablet TAKE ONE TABLET BY MOUTH ONE TIME DAILY NEEDED active Not Available Not Available No t Available hydromorpho ne 2 mg tablet TAKE ONE TO TWO TABLETS BY MOUTH NEEDED FOR PAIN EVERY 4 HOURS 05/26 completed Not Available Not Available Not Available citalopram 20 mg tablet TAKE ONE TABLET BY MOUTH ONE TIME DAILY 06/04 completed Not Available Not Available Not Available famotidine 20 mg tablet TAKE ONE TABLET BY MOUTH ONE TIME DAILY active Not Available Not Available No t Available primidone 250 mg tablet TAKE ONE TABLET BY MOUTH ONE TIME DAILY IN THE EVENING active Not Available Not Available No t Available ciprofloxac in 0.3 % eye drops 05/26 completed Not Available Not Available Not Available ferrous sulfate 325 mg (65 mg iron) tablet TAKE ONE TABLET BY MOUTH TWICE A DAY 06/04 completed Not Available Not Available Not Available gabapentin 300 mg capsule TAKE 2 CAPSULES BY MOUTH EVERY MORNING THEN 1 CAPSULE AT NOON THEN 2 CAPSULES EVERY EVENING 05/26 completed Not Available Not Available Not Available digoxin 125 mcg (0.125 mg) tablet TAKE ONE TABLET BY MOUTH ONE TIME DAILY 05/26 completed Not Available Not Available Not Available furosemide 20 mg tablet TAKE ONE TABLET BY MOUTH ONE TIME DAILY active Not Available Not Available No t Available metoprolol succinate ER 25 mg tablet,exte nded release 24 hr TAKE ONE-HALF TABLET BY MOUTH EVERY EVENING 06/04 completed Not Available Not Available Not Available ondansetron 4 mg disintegrat ing tablet 06/08 completed Not Available Not Available Not Available sertraline 50 mg tablet 06/04 completed Not Available Not Available Not Available escitalopra m 10 mg tablet TAKE ONE TABLET BY MOUTH EVERY MORNING 05/26 completed Not Available Not Available Not Available Cialis 5 mg tablet TAKE ONE TABLET BY MOUTH ONE TIME DAILY 06/04 completed Not Available Not Available Not Available duloxetine 30 mg capsule,del ayed release TAKE ONE CAPSULE BY MOUTH EVERY MORNING FOR ONE WEEK, THEN INCREASE TO TWO CAPSULES BY MOUTH EVERY MORNING 06/04 completed Not Available Not Available Not Available duloxetine 60 mg capsule,del ayed release TAKE ONE CAPSULE BY MOUTH ONE TIME DAILY 06/04 completed Not Available Not Available Not Available Lyrica 50 mg capsule TAKE ONE CAPSULE BY MOUTH THREE TIMES A DAY 06/04 completed Not Available Not Available Not Available Fish Oil active Not Available Not Avai lable Not Available Prilosec active Not Available Not Avai lable Not Available Vitamin D3 active Not Available Not Av ailable Not Available multivitami n active Not Available Not Available Not Available ProAir HFA 90 mcg/actuati on aerosol inhaler INHALE TWO PUFFS BY MOUTH EVERY 6 HOURS NEEDED 06/04 completed Not Available Not Available Not Available B12 active Not Available Not Availa ble Not Available Suprep Bowel Prep Kit 17.5 gram-3.13 gram-1.6 gram oral solution TAKE DIRECTED FOR 1 DAY 06/08 completed Not Available Not Available Not Available Linzess 145 mcg capsule TAKE ONE CAPSULE BY MOUTH ONE TIME DAILY ON AN EMPTY STOMACH AT LEAST 30 MINUTES BEFORE THE FIRST MEAL OF THE DAY 06/04 completed Not Available Not Available Not Available Vitals Date Recorded Body height Body mass index (BMI) Body weight Heart rate Respiratory rate Oxygen saturation Oxygen saturation in Arterial blood by Pulse oximetry Body temperature Systolic blood pressure Diastolic blood pressure Provider Name and Address Organization Details Last Updated DateTime 9 173.99 cm 32.1 kg/m2 66759.2 g 86 /min 20 /min 98 % 98 % 97.9 [degF] 136 mm[Hg] 66 mm[Hg] [facility] 9 11:29:17 Date Recorded Body height Provider Name an d Address Organization Details Last Updated DateTime 09/10/2018 173.99 cm tory hollingsworth [facility] 09/10/2018 14:56:58 Date Recorded Body height Body mass index (BMI) Body weight Heart rate Respiratory rate Oxygen saturation Oxygen saturation in Arterial blood by Pulse oximetry Body temperature Systolic blood pressure Diastolic blood pressure Provider Name and Address Organization Details Last Updated DateTime 9 173.99 cm 30.2 kg/m2 76543.2 2 g 86 /min 20 /min 94 % 94 % 96.8 [degF] 128 mm[Hg] 64 mm[Hg] [facility] 9 12:03:02 Date Recorded Body height Body mass index (BMI) Body weight Provider Name and Address Organization Details Last Updated DateTime 05/26/2020 173.99 cm 29.1 kg/m2 62784.92 g chemo [email or web address] [facility] 05/26/2020 14:06:37 Social History Question Answer Notes LastModified by Organizat ion Details LastModified Time Tobacco Smoking Status Former Smoker Claire Veliz eliot, [facility] 06/04/2018 11:22:55 Do You Have An Advance Directive? No Information not available 05/26/2020 What Is Your Level Of Alcohol Consumption? Moderate Information not available 06/04/2018 Are You Blind Or Do You Have Difficulty Seeing? No Information not available 06/08/2021 In The 14 Days Before Symptom Onset, Have You Had Close Contact With A Laboratory-conf irmed COVID-19 While That Case Was Ill? No Information not available 05/26/2020 In The 14 Days Before Symptom Onset, Have You Had Close Contact With A Person Who Is Under Investigation For COVID-19 While That Person Was Ill? No Information not available 05/26/2020 Have You Been To An Area Known To Be High Risk For COVID-19? No Information not available 05/26/2020 Are You Currently Employed? No Information not available 06/08/2021 Are You Deaf Or Do You Have Serious Difficulty Hearing? Yes Information not available 06/08/2021 Do You Or Have You Ever Used E-cigarettes Or Vape? 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 No Information not available 06/08/2021 Live Alone Or With Others? With Others Information not available 06/04/2018 Tobacco-quit Date 42 Years Of Age Information not available 06/04/2018 Shift Work No Informat ion not available 05/26/2020 Marital Status Informatio n not available 06/04/2018 Do You Have A Medical Power Of Can Reconditioner? 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 06/08/2021 Information not available 06/08/2021 Are There Any Occupational Health Risks Where You Work? Y-asbestos Information not available 06/04/2018 Do You Have An Out Of Hospital DNR? Yes Information not available 06/08/2021 At What Age Did You Start Smoking Tobacco? 20 Information not available 06/04/2018 Are You Passively Exposed To Smoke? No Information not available 05/26/2020 Do You Or Have You Ever Used Smokeless Tobacco? Never Used Smokeless Tobacco Information not available 05/26/2020 Are There Any Smokers In Your House? No Information not available 06/08/2021 How Much Tobacco Do You Smoke? 2 PPD Information not available 06/04/2018 How Many Years Have You Smoked Tobacco? 22 Information not available 06/04/2018 Sex: Male Functional Status Question Answer Note LastModified by Organization D etails LastModified Time Do you have difficulty walking or climbing stairs? No Information not available 06/08/2021 Do you have difficulty doing errands alone? No Information not available 06/08/2021 Are you able to care for yourself? No Information n ot available 06/08/2021 Do you have difficulty dressing or bathing? No Information not available 06/08/2021 Mental Status Question Answer Note LastModified by Organization D etails LastModified Time Do you have difficulty concentrating, remembering or making decisions? No Information no t available 06/08/2021 Family History Nothing Reported. Medical History Condition Response ISMAEL Y Immunizations Vaccine Type Date Status Note Provider Nam e and Address Organization Details Recorded Time influenza, unspecified formulation 9 completed MADELEINE Castro [facility] 06/04/2018 11:29:34 pneumococcal, unspecified formulation 5 completed MADELEINE Castro [facility] 06/04/2018 11:29:43 Influenza, [place] 0 [facility] 05/26/2020 14:07:28 COVID-19, mRNA, LNP-S, PF, 100 mcg/0.5mL dose or 50 mcg/0.25mL dose 1 completed [facility] 06/08/2021 10:25:24 COVID-19, mRNA, LNP-S, PF, 100 mcg/0.5mL dose or 50 mcg/0.25mL dose 1 completed [facility] 06/08/2021 10:25:31 COVID-19, mRNA, LNP-S, PF, 100 mcg/0.5mL dose or 50 mcg/0.25mL dose 1 completed [facility] 06/08/2021 10:25:40 Influenza, split virus, quadrivalent, preservative 1 completed [facility] 06/08/2021 10:25:51 Past Encounters Encounter ID Performer Location Encounter Start Date Encounter Closed Date Diagnosis/Indication Diagnosis SNOMED-CT Code Diagnosis ICD10 Code Diagnosis Note [id number] Fran Magdaleno Md1 [place] [address] [facility] [place] [address] 06/04/2018 11:01:50 06/04/2018 13:07:21 Obstructive sleep apnea syndrome 14118466 G47.33 - Patient has been diagnoses with ISMAEL- AHI of 13- Needs to be restarted on tx.- Cpap titration Pulmonary hypertension 26384359 I27.20 - His Echo showed a RSVP of 35mm- Mild- Suspect that this group 2- Need to address his ISMAEL Coronary arteriosclerosis 98590830 I25.10 s/p multiple stents. [id number] Fran Prater [place] [address] [facility] [place] [address] 09/26/2018 11:54:13 09/26/2018 12:13:37 Obstructive sleep apnea syndrome 10412969 G47.33 - Patient has been diagnoses with ISMAEL- AHI of 13- Patient is compliant with his Bipap and benefits greatly- Continue with current settings.- Feels rested. Pulmonary hypertension 26222265 I27.20 - His Echo showed a RSVP of 35mm- Mild- Suspect that this group 2- Need to address his ISMAEL Coronary arteriosclerosis 88405824 I25.10 s/p multiple stents. [id number] Fran Magdaleno Md1 [place] [address] [facility] [place] [address] 05/26/2020 14:05:48 05/26/2020 14:49:31 Obstructive sleep apnea syndrome 12873554 G47.33 - Patient has been diagnoses with ISMAEL- AHI of 13- He hasn't been able to use his Cpap since his . Pulmonary hypertension 71601542 I27.20 - His Echo showed a RSVP of 35mm- Mild- Suspect that this group 2- Need to address his ISMAEL Coronary arteriosclerosis 78569884 I25.10 s/p multiple stents. [id number] Fran Magdaleno Md1 [place] [address] [facility] [place] [address] 06/08/2021 10:21:39 06/08/2021 13:02:44 Obstructive sleep apnea syndrome 35741197 G47.33 - Patient is unable to use his Cpap at this point- Recommend a MAD- Sleep on his side Health Concerns Section Related Observation LastModified by Organization Detai ls LastModified Time None Recorded Concern Status LastModified by Organization Details LastModified Time None Recorded Advance Directives Directive N: Payers Encounter Date Sequence Insurance Name Policy Number Policy Kelley Covered Member ID Kelley Member ID Guarantor Name 06/04/2018 1 [place] Ascencion Perez Jr [id number] Ascencion Nicholas Ploof 09/26/2018 2 [employer] (MEDICARE SUPPLEMENT) Ascencion Clementoof [id number] Ascencion Nicholas Ploof 09/26/2018 1 [place] Ascencion Hornef [id number] Ascencion Clementoof 05/26/2020 2 [employer] (MEDICARE SUPPLEMENT) Ascencion Clementoof [id number] Ascencion Nicholas Ploof 05/26/2020 1 [place] Ascencion Perez Jr [id number] Ascencion Clementoof 06/08/2021 2 [employer] (MEDICARE SUPPLEMENT) Ascencion Clementoof [id number] Ascencion Nicholas Ploof 06/08/2021 1 [place] Ascencion Perez Jr [id number] Ascencion Perez Notes Date Note Type Note Provider Name and Address Organization Details Recorded Time 06/04/2018 text/html Mr. Perez is a very pleasant 77 y/o male who comes for evaluation of pulmonary hypertension and ISMAEL. He has a hx of CAD with multiple stent placed. His last stent was done around 1 month ago. Patient was complaining of dyspnea with minimal exertion. He states that after the stent his dyspnea has improved significantly. Patient was diagnosed with ISMAEL in [place] with an AHI of 13. He had to return the machine over there due to some billing problems. He wakes up a couple of times during the night and his tells him that he snores. Patient does takes some naps. His last Echo showed a RSVP of 35mm/Hg. He had a LHC but don't know if he had a RHC. Fran Magdaleno Md1 [address] [facility],[address], [place], [address], [facility] 06/04/2018 12:04:26 09/26/2018 text/html Mr. Perez comes for a follow up visit regarding his ISMAEL. Patient is compliant with his PAP machine and benefits greatly. Feels rested in the am. Fran Magdaleno Md1 [address] [facility],[address], [place], [address], [facility] 09/26/2018 12:10:51 05/26/2020 text/html Telehealth visit . Consent obtained from the patient. Format:Voice Follow up visit on Mr. Perez regarding his ISMAEL. Patient is compliant with his PAP machine and benefits greatly. Feels rested in the am. He hasn't been using his Cpap. Patient states that his recently and he has been living in an . Fran Magdaleon Md1 [address] [facility],[address], [place], [address], [facility] - [facility] 05/26/2020 14:33:10 06/08/2021 text/html Telehealth visit . Consent obtained from the patient. Format:Voice Follow up visit on Mr. Perez regarding his ISMAEL. Patient is unable to use his Cpap. He is sleeping well without it. No recent hospitalizations. Fran Magdaleno Md1 [address] [facility],[address], [place], [address], [facility] 06/08/2021 10:44:44
--- OUTSIDE RECORDS SUMMARY | 2024-06-24 13:28 | XMS_ITS | Data Portability ---
Author Organization [place] - [facility]-IP Address [address] [place] [address] Care Team Providers Care Drier Helper Name Role Phone KEVINMAMI Primary Care Provider Unavailabl e Assessment Encounter Date Assessment Date Assessment LastModified by Organization Details LastModified Time 12/28/2014 12/28/2014 Diagnosis, treatment plan, and disease progression discussed with patient. I reviewed medical options including risks, benefits, and alternative treatments. Side effects of recommended medication reviewed with patient and questions answered. Importance of compliance emphasized to patient. Importance of follow up also stressed. Not available 12/28/2014 16:01:46 02/01/2015 02/01/2015 Diagnosis, treatment plan, and disease progression discussed with patient. I reviewed medical options including risks, benefits, and alternative treatments. Side effects of recommended medication reviewed with patient and questions answered. Importance of compliance emphasized to patient. Importance of follow up also stressed. Not available 02/01/2015 16:08:59 04/12/2015 04/12/2015 Diagnosis, treatment plan, and disease progression discussed with patient. I reviewed medical options including risks, benefits, and alternative treatments. Side effects of recommended medication reviewed with patient and questions answered. Importance of compliance emphasized to patient. Importance of follow up also stressed. Not available 04/12/2015 08:14:52 Plan of Treatment Reminders Order Date Submit Date Provider Last Modified By Organization Details Last Modified Time Details Appointments None recorded. Lab urinalysis , dipstick 2014 015 CHRISTEN Not available 5 07:30:21 TSH, serum or plasma 2014 015 CHRISTEN Not available 5 10:21:38 urinalysis complete, reflex culture 2014 015 CHRISTEN Not available 6 05:02:51 lipid panel w/ direct LDL, serum 2014 015 CHRISTEN Not available 6 05:02:37 CMP, serum or plasma 2014 015 CHRISTEN Not available 5 10:20:50 digoxin, serum 2014 CHRISTEN Not available 5 09:19:04 PSA, serum or plasma 2014 015 CHRISTEN Not available 5 10:21:31 lipid panel w/ direct LDL, serum 2014 016 CHRISTEN Not available 6 06:25:18 Referral None recorded. Procedures None recorded. Surgeries None recorded. Imaging CT, abdomen + pelvis, w/o contrast 2015 016 DBA_PATCH_ [id number] [facility] [address] [place] [address], [id number], 6 04:13:32 Medication Orders cyclobenza flor 10 mg tablet [address] [facility], [address] [place] [address], [address], 5 08:01:03 tramadol 50 mg tablet 2014 Fabiola toberpriscilla [facility], [address] [place] [address], [address], 5 15:36:43 meloxicam 15 mg tablet [address] [facility], [address] [place] [address], [address], 5 08:01:03 citalopram 20 mg tablet [address] [facility], [address] [place] [address], [address], 5 08:39:35 doxycyclin e hyclate 100 mg capsule [address] [facility], [address] [place] [address], [address], 6 11:55:36 triamcinol one acetonide 0.1 % topical cream [address] [facility], [address] [place] [address], [address], 6 11:56:31 fluticason e propionate 50 mcg/actuat ion nasal spray,susp ension 2014 015 [place] [address], [address] [place] [address], [address], 6 11:55:45 Medrol (Scott) 4 mg tablets in a dose pack 2015 016 DBA_PATCH_ [id number] [facility] [address] [place] [address], [address], 6 04:13:29 atorvastat in 40 mg tablet 2015 016 DBA_PATCH_ [id number] [facility] [address] [place] [address], [address], 6 04:13:26 Patient TargetsNo targets recorded. Patient Instructions Encounter Date Encounter Id Patient Instructions Last Modified By Organization Details Last Modified Time 12/28/2014 [id number] back pain: care instructions Not available 12/28/2014 16:21:36 02/01/2015 [id number] inguinal hernia: care instructions toberdier Not available 02/02/2015 11:22:49 back pain: care instructions [email or web address] Not available 02/02/2015 11:22:49 04/12/2015 [id number] inguinal hernia: care instructions Not available 04/12/2015 09:09:28 testicular pain: care instructions Not available 04/12/2015 09:09:28 dermatitis: care instructions Not available 04/12/2015 09:09:28 03/29/2016 [id number] pt has previousl y scheduled lab work 03/29 including CBC, CMP [email or web address] Not available 03/29/2016 13:56:18 hx of diverticulitus in sigmoid colon, UA done in office negative [email or web address] Not available 03/29/2016 13:56:05 Reason for Referral None Reported. Results Created Date Observation Date Name Description Value Unit Range Abnormal Flag Note LastModifiedBy Organization Detail LastModifiedTime 12/29/19 15 12/28/2014 urina lysis , dipst ick U. color YELLOW yellow Not Available [address], [address], 12/29/2014 07:30:20 12/29/19 15 12/28/2014 urina lysis , dipst ick U. appear HAZY clear Not Available [address], [address], 12/29/2014 07:30:20 12/29/19 15 12/28/2014 urina lysis , dipst ick U. glu NEGATI VE mg/dL negati ve Not Available [address], [address], 12/29/2014 07:30:20 12/29/19 15 12/28/2014 urina lysis , dipst ick U. juanjose NEGATI VE negati ve Not Available [address], [address], 12/29/2014 07:30:20 12/29/19 15 12/28/2014 urina lysis , dipst ick U. ket NEGATI VE mg/dL negati ve Not Available [address], [address], 12/29/2014 07:30:20 12/29/19 15 12/28/2014 urina lysis , dipst ick spgr 1.010 1.005 - 1.030 Not Available [address], [place], [address], 12/29/2014 07:30:20 12/29/19 15 12/28/2014 urina lysis , dipst ick U. blood TRACE negati ve Not Available [address], [place], [address], 12/29/2014 07:30:20 12/29/19 15 12/28/2014 urina lysis , dipst ick U.pH 6.0 5.0-8. 0 Not Available [address], [place], [address], 12/29/2014 07:30:20 12/29/19 15 12/28/2014 urina lysis , dipst ick U. prot NEGATI VE mg/dL negati ve Not Available [address], [place], [address], 12/29/2014 07:30:20 12/29/19 15 12/28/2014 urina lysis , dipst ick urobil 0.2 mg/dL 0.2-8. 0 Not Available [address], [place], [address], 12/29/2014 07:30:20 12/29/19 15 12/28/2014 urina lysis , dipst ick U.nit NEGATI VE negati ve Not Available [address], [place], [address], 12/29/2014 07:30:20 12/29/19 15 12/28/2014 urina lysis , dipst ick U.leuc 3+ negati ve Not Available [address] [address], [place], [address], 12/29/2014 07:30:20 12/29/19 15 12/31/2014 cultu re, urine culture, urine, routine CULTU RE, URINE , ROUTI NE MICRO NUMBE R: [id number] TEST STATU S: FINAL SPECI MEN SOURC E: URINE , CLEAN CATCH SPECI MEN QUALI TY: ADEQU ATE RESUL T: No Growt h Not Available [facility] [place] [facility] [address], [place], [address], 12/31/2014 03:47:40 04/05/20 15 04/05/2015 CMP, serum or plasm a BUN 15.0 mg/dL 7.0-20 .0 Not Available [address] [address], [place], [address], 04/05/2015 10:20:50 04/05/20 15 04/05/2015 CMP, serum or plasm a creat 1.40 mg/dL 0.60-1 .40 Not Available [address] [address], [place], [address], 04/05/2015 10:20:50 04/05/20 15 04/05/2015 CMP, serum or plasm a CGFR 53 mL/mi n/1.7 3_M2 >60 low IF THE PATIE NT IS AFRIC AN AMERI CAN MULTI PLY THE RESUL T BY 1.210 Not Available [address] [address], [place], [address], 04/05/2015 10:20:50 04/05/20 15 04/05/2015 CMP, serum or plasm a B/C ratio 10.7 ratio 6.0-25 .0 Not Available [address] [address], [place], [address], 04/05/2015 10:20:50 04/05/20 15 04/05/2015 CMP, serum or plasm a glu 100 mg/dL 70-110 Not Available [address], [place], [address], 04/05/2015 10:20:50 04/05/20 15 04/05/2015 CMP, serum or plasm a TP 6.6 g/dL 6.0-8. 5 Not Available [address], [place], [address], 04/05/2015 10:20:50 04/05/20 15 04/05/2015 CMP, serum or plasm a alb 3.9 g/dL 3.4-5. 0 Not Available [address], [place], [address], 04/05/2015 10:20:50 04/05/20 15 04/05/2015 CMP, serum or plasm a glob 2.7 g/dL 2.2-4. 1 Not Available [address], [place], [address], 04/05/2015 10:20:50 04/05/20 15 04/05/2015 CMP, serum or plasm a A/G ratio 1.4 ratio 0.9-2. 0 Not Available [address], [place], [address], 04/05/2015 10:20:50 04/05/20 15 04/05/2015 CMP, serum or plasm a tbil 0.30 mg/dL 0.00-3 .00 Not Available [address], [place], [address], 04/05/2015 10:20:50 04/05/20 15 04/05/2015 CMP, serum or plasm a Ca 9.5 mg/dL 8.5-10 .5 Not Available [address], [place], [address], 04/05/2015 10:20:50 04/05/20 15 04/05/2015 CMP, serum or plasm a ALP 51 IU/L 50-136 Not Available [address], [place], [address], 04/05/2015 10:20:50 04/05/20 15 04/05/2015 CMP, serum or plasm a ALT 38 IU/L 0-50 Not Available [address], [place], [address], 04/05/2015 10:20:50 04/05/20 15 04/05/2015 CMP, serum or plasm a AST 29 IU/L 0-50 Not Available [address], [place], [address], 04/05/2015 10:20:50 04/05/20 15 04/05/2015 CMP, serum or plasm a Na 146 mmol/ L 136-14 8 Not Available [address], [place], [address], 04/05/2015 10:20:50 04/05/20 15 04/05/2015 CMP, serum or plasm a K 4.7 mmol/ L 3.4-5. 5 Not Available [address], [place], [address], 04/05/2015 10:20:50 04/05/20 15 04/05/2015 CMP, serum or plasm a cL 106 mmol/ L 98-111 Not Available [address], [place], [address], 04/05/2015 10:20:50 04/05/20 15 04/05/2015 CMP, serum or plasm a CO2 31 mmol/ L 21-33 Not Available [address], [place], [address], 04/05/2015 10:20:50 04/05/20 15 04/05/2015 LDL, direc t, serum dldl 67 mg/dL 33-140 Not Available [address], [place], [address], 04/05/2015 10:21:19 04/05/20 15 04/05/2015 lipid panel , serum chol 130 mg/dL 0-200 Not Available [address] [facility] [address], [place], [address], 04/05/2015 10:21:25 04/05/20 15 04/05/2015 lipid panel , serum trig 232 mg/dL 30-200 high Not Available [address] [facility] [address], [place], [address], 04/05/2015 10:21:25 04/05/20 15 04/05/2015 lipid panel , serum HDL 33 mg/dL 35-150 low Not Available [address] [address], [place], [address], 04/05/2015 10:21:25 04/05/20 15 04/05/2015 lipid panel , serum LDLC 51 mg/dL 0-140 Not Available [address] [facility] [address], [place], [address], 04/05/2015 10:21:25 04/05/20 15 04/05/2015 lipid panel , serum chol/HDL ratio 3.94 Not Available [address], [place], [address], 04/05/2015 10:21:25 04/05/20 15 04/05/2015 PSA, serum or plasm a PSA 1.52 NG/dL 0.00-4 .00 Not Available [address], [place], [address], 04/05/2015 10:21:31 04/05/20 15 04/05/2015 TSH, serum or plasm a TSH 1.55 IU/mL 0.40-5 .00 Not Available [address], [place], [address], 04/05/2015 10:21:38 04/05/20 15 04/05/2015 urina lysis , dipst ick U. color YELLOW yellow Not Available [address], [place], [address], 04/05/2015 12:06:14 04/05/20 15 04/05/2015 urina lysis , dipst ick U. appear CLEAR clear Not Available [address], [place], [address], 04/05/2015 12:06:14 04/05/20 15 04/05/2015 urina lysis , dipst ick U. glu NEGATI VE mg/dL negati ve Not Available [address], [place], [address], 04/05/2015 12:06:14 04/05/20 15 04/05/2015 urina lysis , dipst ick U. juanjose NEGATI VE negati ve Not Available [address], [place], [address], 04/05/2015 12:06:14 04/05/20 15 04/05/2015 urina lysis , dipst ick U. ket NEGATI VE mg/dL negati ve Not Available [address], [place], [address], 04/05/2015 12:06:14 04/05/20 15 04/05/2015 urina lysis , dipst ick spgr 1.010 1.005 - 1.030 Not Available [address], [place], [address], 04/05/2015 12:06:14 04/05/20 15 04/05/2015 urina lysis , dipst ick U. blood NEGATI VE negati ve Not Available [address], [place], [address], 04/05/2015 12:06:14 04/05/20 15 04/05/2015 urina lysis , dipst ick U.pH 6.5 5.0-8. 0 Not Available [address], [place], [address], 04/05/2015 12:06:14 04/05/20 15 04/05/2015 urina lysis , dipst ick U. prot NEGATI VE mg/dL negati ve Not Available [address], [place], [address], 04/05/2015 12:06:14 04/05/20 15 04/05/2015 urina lysis , dipst ick urobil 0.2 mg/dL 0.2-8. 0 Not Available [address] [address], [place], [address], 04/05/2015 12:06:14 04/05/20 15 04/05/2015 urina lysis , dipst ick U.nit NEGATI VE negati ve Not Available [address] [address], [place], [address], 04/05/2015 12:06:14 04/05/20 15 04/05/2015 urina lysis , dipst ick U.leuc NEGATI VE negati ve Not Available [address] [address], [place], [address], 04/05/2015 12:06:14 04/05/20 15 04/06/2015 digox in, serum digoxin <0.5 mcg/L 0.8-2. 0 low Verif ied by repea t david sis. PETER Anti- Digox in (Digi bind( R)) in serum /plas ma of patie nts under toxic ity thera py may inter fere with the digox in immun oassa y. Not Available [facility] [place] [facility] [address], [place], [address], 04/06/2015 09:19:04 04/03/20 16 04/04/2016 lipid panel , serum cholesterol, total 142 mg/dL 125-20 0 normal Not Available [facility] [place] [address], [place], [address], 04/04/2016 06:25:17 04/03/20 16 04/04/2016 lipid panel , serum HDL cholesterol 30 mg/dL > or = 40 low Not Available [facility] [place] [facility] [address], [place], [address], 04/04/2016 06:25:17 04/03/20 16 04/04/2016 lipid panel , serum triglyceride s 400 mg/dL <150 high Not Available [facility] [place] [facility] [address], [place], [address], 04/04/2016 06:25:17 04/03/20 16 04/04/2016 lipid panel , serum LDL-choleste rol 32 mg/dL _(robert c) <130 normal Vu able range <100 mg/dL for patie nts with CHD or diabe cuco and <70 mg/dL for diabe tic patie nts with known heart disea se. Not Available [facility] [place] [address], [place], [address], 04/04/2016 06:25:17 04/03/20 16 04/04/2016 lipid panel , serum chol/HDLC ratio 4.7 (calc ) < or = 5.0 normal Not Available [facility] [place] [address], [place], [address], 04/04/2016 06:25:17 04/03/20 16 04/04/2016 lipid panel , serum non HDL cholesterol 112 mg/dL _(robert c) normal Targe t for non-H DL dre stero l is 30 mg/dL highe r than LDL dre stero l targe t. Not Available [facility] [place] [address], [place], [address], 04/04/2016 06:25:17 04/03/20 16 04/04/2016 lipid panel , serum JESSI We recei puma your handw ritte n test order and perfo rmed the AMA defin ed lipid panel . If this is not what you inten ded to order , pleas e conta ct your local clien t servi ce repre senta tive immed iatel y so that we may adjus t our dharmesh ng appro priat luma. You may also inqui re about alter nativ e or addit ional testi ng. Not Available [facility] [place] [facility] [address], [place], [address], 04/04/2016 06:25:17 04/03/20 16 04/04/2016 BMP, serum or plasm a glucose 109 mg/dL 65-99 high Fasti ng refer ence inter sienna Not Available [facility] [place] [facility] [address], [place], [address], 04/04/2016 06:25:18 04/03/20 16 04/04/2016 BMP, serum or plasm a urea nitrogen (BUN) 17 mg/dL 7-25 normal Not Available [facility] [place] [facility] [address], [place], [address], 04/04/2016 06:25:18 04/03/20 16 04/04/2016 BMP, serum or plasm a creatinine 1.20 mg/dL 0.70-1 .18 high For patie nts >49 years of age, the refer ence limit for Creat inine is appro ximat luma 13% highe r for peopl e ident ified as Afric an-Am adithya n. Not Available [facility] [place] [facility] [address], [place], [address], 04/04/2016 06:25:18 04/03/20 16 04/04/2016 BMP, serum or plasm a eGFR non-afr. botswanan 59 mL/mi n/1.7 3m2 > or = 60 low Not Available [facility] [address], [place], [address], 04/04/2016 06:25:18 04/03/20 16 04/04/2016 BMP, serum or plasm a eGFR 68 mL/mi n/1.7 3m2 > or = 60 normal Not Available [facility] [address], [place], [address], 04/04/2016 06:25:18 04/03/20 16 04/04/2016 BMP, serum or plasm a BUN/creatini ne ratio 14 (calc ) 6-22 normal Not Available [facility] [address], [place], [address], 04/04/2016 06:25:18 04/03/20 16 04/04/2016 BMP, serum or plasm a sodium 141 mmol/ L 135-14 6 normal Not Available [facility] [address], [place], [address], 04/04/2016 06:25:18 04/03/20 16 04/04/2016 BMP, serum or plasm a potassium 4.4 mmol/ L 3.5-5. 3 normal Not Available [facility] [address], [place], [address], 04/04/2016 06:25:18 04/03/20 16 04/04/2016 BMP, serum or plasm a chloride 105 mmol/ L 98-110 normal Not Available [facility] [address], [place], [address], 04/04/2016 06:25:18 04/03/20 16 04/04/2016 BMP, serum or plasm a carbon dioxide 28 mmol/ L 20-31 normal Not Available [facility] [place] [facility] [address], [place], [address], 04/04/2016 06:25:18 04/03/20 16 04/04/2016 BMP, serum or plasm a calcium 10.2 mg/dL 8.6-10 .3 normal Not Available [facility] [address], [place], [address], 04/04/2016 06:25:18 04/03/20 16 04/04/2016 hepat ic funct ion panel , serum protein, total 6.8 g/dL 6.1-8. 1 normal Not Available [facility] [address], [place], [address], 04/04/2016 06:25:19 04/03/20 16 04/04/2016 hepat ic funct ion panel , serum albumin 4.5 g/dL 3.6-5. 1 normal Not Available [facility] [address], [place], [address], 04/04/2016 06:25:19 04/03/20 16 04/04/2016 hepat ic funct ion panel , serum globulin 2.3 g/dL_ (calc ) 1.9-3. 7 normal Not Available [facility] [address], [place], [address], 04/04/2016 06:25:19 04/03/20 16 04/04/2016 hepat ic funct ion panel , serum albumin/glob ulin ratio 2.0 (calc ) 1.0-2. 5 normal Not Available [facility] [address], [place], [address], 04/04/2016 06:25:19 04/03/20 16 04/04/2016 hepat ic funct ion panel , serum bilirubin, total 0.4 mg/dL 0.2-1. 2 normal Not Available [facility] [address], [place], [address], 04/04/2016 06:25:19 04/03/20 16 04/04/2016 hepat ic funct ion panel , serum bilirubin, direct 0.1 mg/dL < or = 0.2 normal Not Available [employer] [facility] [address], [place], [address], 04/04/2016 06:25:19 04/03/20 16 04/04/2016 hepat ic funct ion panel , serum bilirubin, indirect 0.3 mg/dL _(robert c) 0.2-1. 2 normal Not Available [facility] [address], [place], [address], 04/04/2016 06:25:19 04/03/20 16 04/04/2016 hepat ic funct ion panel , serum alkaline phosphatase 53 U/L 40-115 normal Not Available [facility] [employer] [facility] [address], [place], [address], 04/04/2016 06:25:19 04/03/20 16 04/04/2016 hepat ic funct ion panel , serum AST 26 U/L 10-35 normal Not Available [facility] [address], [place], [address], 04/04/2016 06:25:19 04/03/20 16 04/04/2016 hepat ic funct ion panel , serum ALT 23 U/L 9-46 normal Not Available [employer] [facility] [address], [place], [address], 04/04/2016 06:25:19 04/03/20 16 04/04/2016 hepat ic funct ion panel , serum comment We recei puma your handw ritte n test order and perfo rmed the AMA defin ed Hepat ic Funct ion Panel . If this is not what you inten ded to order , pleas e conta ct your local clien t servi ce repre senta tive immed iatel y so that we may adjus t our dharmesh ng appro anna ge. You may also inqui re about alter nativ e or addit ional testi ni. Not Available [facility] [place] [facility] [address], [place], [address], 04/04/2016 06:25:19 04/03/20 16 04/04/2016 CK (crea ernst kinas e), total , serum creatine kinase, total 131 U/L 44-196 normal Not Available [facility] [place] [facility] [address], [place], [address], 04/04/2016 06:25:19 04/03/20 16 04/04/2016 CBC w/ auto diff white blood cell count 5.7 thous and/u L 3.8-10 .8 normal Not Available [facility] [address], [place], [address], 04/04/2016 06:25:20 04/03/20 16 04/04/2016 CBC w/ auto diff red blood cell count 3.89 marsha on/uL 4.20-5 .80 low Not Available [facility] [place] [facility] [address], [place], [address], 04/04/2016 06:25:20 04/03/20 16 04/04/2016 CBC w/ auto diff hemoglobin 13.5 g/dL 13.2-1 7.1 normal Not Available [facility] [place] [facility] [address], [place], [address], 04/04/2016 06:25:20 04/03/20 16 04/04/2016 CBC w/ auto diff hematocrit 40.6 % 38.5-5 0.0 normal Not Available [facility] [place] [facility] [address], [place], [address], 04/04/2016 06:25:20 04/03/20 16 04/04/2016 CBC w/ auto diff MCV 104.3 fL 80.0-1 00.0 high Not Available [facility] [place] [facility] [address], [place], [address], 04/04/2016 06:25:20 04/03/20 16 04/04/2016 CBC w/ auto diff MCH 34.6 pg 27.0-3 3.0 high Not Available [facility] [place] [facility] [address], [place], [address], 04/04/2016 06:25:20 04/03/20 16 04/04/2016 CBC w/ auto diff MCHC 33.2 g/dL 32.0-3 6.0 normal Not Available [facility] [address], [place], [address], 04/04/2016 06:25:20 04/03/20 16 04/04/2016 CBC w/ auto diff RDW 13.9 % 11.0-1 5.0 normal Not Available [facility] [address], [place], [address], 04/04/2016 06:25:20 04/03/20 16 04/04/2016 CBC w/ auto diff platelet count 221 thous and/u L 140-40 0 normal Not Available [facility] [address], [place], [address], 04/04/2016 06:25:20 04/03/20 16 04/04/2016 CBC w/ auto diff MPV 8.0 fL 7.5-11 .5 normal Not Available [facility] [address], [place], [address], 04/04/2016 06:25:20 04/03/20 16 04/04/2016 CBC w/ auto diff absolute neutrophils 3557 cells /uL 1500-7 800 normal Not Available [facility] [address], [place], [address], 04/04/2016 06:25:20 04/03/20 16 04/04/2016 CBC w/ auto diff absolute lymphocytes 1425 cells /uL 850-39 00 normal Not Available [facility] [place] [facility] [address], [place], [address], 04/04/2016 06:25:20 04/03/20 16 04/04/2016 CBC w/ auto diff absolute monocytes 633 cells /uL 200-95 0 normal Not Available [facility] [place] [facility] [address], [place], [address], 04/04/2016 06:25:20 04/03/20 16 04/04/2016 CBC w/ auto diff absolute eosinophils 80 cells /uL 15-500 normal Not Available [facility] [place] [facility] [address], [place], [address], 04/04/2016 06:25:20 04/03/20 16 04/04/2016 CBC w/ auto diff absolute basophils 6 cells /uL 0-200 normal Not Available [facility] [place] [facility] [address], [place], [address], 04/04/2016 06:25:20 04/03/20 16 04/04/2016 CBC w/ auto diff neutrophils 62.4 % normal Not Available [facility] [place] [facility] [address], [place], [address], 04/04/2016 06:25:20 04/03/20 16 04/04/2016 CBC w/ auto diff lymphocytes 25.0 % normal Not Available [facility] [place] [facility] [address], [place], [address], 04/04/2016 06:25:20 04/03/20 16 04/04/2016 CBC w/ auto diff monocytes 11.1 % normal Not Available [facility] [place] [facility] [address], [place], [address], 04/04/2016 06:25:20 04/03/20 16 04/04/2016 CBC w/ auto diff eosinophils 1.4 % normal Not Available [facility] [address], [place], [address], 04/04/2016 06:25:20 04/03/20 16 04/04/2016 CBC w/ auto diff basophils 0.1 % normal Not Available [facility] [address], [place], [address], 04/04/2016 06:25:20 08/03/19 16 07/28/2015 imagi ng/di agnos tic resul t No observ ation record ed. [facility] [address] [place], [address], 08/04/2015 07:50:15 12/08/19 16 12/07/2015 x-ray , chest No observ ation record ed. [facility] Not Available 2015 07:55:05 03/30/20 16 03/30/2016 CT, abdom en + pelvi s, w/o contr ast No observ ation record ed. [facility] (Imaging) [address] [facility], [place], [address], 03/30/2016 12:36:35 Result Notes None recorded. 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 Active Nallely Sow MD [address] [place] [address],[address], [place], [address], [facility] 5 08:39:35 Hyperlipide sandra 95541725 Active Nallely Sow MD [address] [facility],[address], [place], [address], [facility] 5 08:39:35 Cardiac pacemaker syndrome 408495204 Rachelle Sow MD [address] [facility],[address], [place], [address], [facility] 5 16:21:36 Insomnia 779880036 MD Maureen Mccracken [address], [place], [address], [facility] 4 10:14:24 Acute bronchitis 67186255 MD Maureen Mccracken [address], [place], [address], [facility] 4 09:47:05 Benign prostatic hyperplasia with outflow obstruction 512667209 MD Maureen Mccracken [address], [place], [address], [facility] 5 08:39:35 Retention of urine 654103910 MD Maureen Mccracken [address], [place], [address], [facility] 4 10:14:24 Rosacea 976181324 MD Maureen Mccracken [address], [place], [address], [facility] 4 10:14:24 Dizziness 180487854 MD Maureen Mccracken [address], [place], [address], [facility] 4 10:14:24 Fever 135241033 MD Maureen Mccracken [address], [place], [address], [facility] 4 08:34:55 Dysuria 58859980 MD Maureen Mccracken [address], [place], [address], [facility] 4 08:34:55 Backache 992155865 MD Maureen Mccracken [address], [place], [address], [facility] 5 16:08:57 Lumbar radiculopat hy 195082510 Active MD Maureen Castillo [address], [place], [address], [facility] 5 16:21:36 Prostatitis 5107020 Active MD Maureen Castillo [address], [place], [address], [facility] 5 07:52:28 Inguinal hernia 421242693 Active MD Maureen Castillo [address], [place], [address], [facility] 5 08:39:35 Pain in testicle 40108193 Active MD [address], [place], [address], [facility] 5 08:39:35 Contact dermatitis 57289524 Active MD Maureen Castillo [address], [place], [address], [facility] 5 08:39:35 Non-allergi c rhinitis 221734669830 Active MD Maureen Castillo,[address], [place], [address], [facility] 5 08:39:35 Problem Notes None recorded. Procedures Surgical History Date Name Laterality Status Provider Name and Address Organization Details Recorded Time 9 Pacemaker insertion completed MD Maureen Castillo [address], [place], [address], [facility] 04/12/2015 08:37:51 7 [facility]pal T[facility]air [facility] 01/20/2014 11:03:03 9 Arthroscopy completed Gail Joshua [facility] 01/20/2014 11:03:03 Imaging Results Imaging Date Name Status LastModified by Organiz ation Details LastModified Time 07/28/2015 imaging[facility]diagn [facility] result [facility] [address] [place], [address], 08/04/2015 07:50:15 12/07/2015 x-ray, chest completed [facility] Information not available 12/16/2015 07:55:05 03/30/2016 CT, abdomen + pelvis, w/o contrast completed [address] (Imaging) [address] [place], [address], 03/30/2016 12:36:35 Procedure Notes None recorded. Medical Equipment None Reported. Allergies Allergen ID Allergen Name Allergen Category Reaction Reaction Severity Criticality Documentation Date Start Date Code Code System Note Provider Name and Address Organization Details Recorded Time 71024 Product containin g penicilli n and antibioti c (product) medicatio n hives severe Not available 01/20/20141979 41489 05 SNOMED Violetta Oberdier eliot, [facility] 5 15:25:09 Medications Name Sig Start Date Stop Date Status Note LastModified by Organization Details LastModified Time cyclobenza flor 10 mg tablet Take 1 tablet twice a day by oral route for 7 days. 2014 active Not Available Not Available Not Avai lable Flomax 0.4 mg capsule Take 1 capsule every day by oral route for 90 days. 06/14 completed Not Available Not Available Not Available atorvastat in 40 mg tablet Take 1 tablet every day by oral route for 90 days. active Not Available Not Available No t Available doxycyclin e hyclate 100 mg capsule Take 1 capsule twice a day by oral route for 10 days. 03/29 completed Not Available Not Available Not Available trazodone 50 mg tablet Take 1 tablet(s) in the evening with supper by oral route. active for sleep Not Available Not Available Not Available azithromyc in 250 mg tablet as directed active Not Available Not Available No t Available ibuprofen 800 mg tablet 03/29 completed Not Available Not Available Not Available metoprolol succinate ER 50 mg tablet,ext ended release 24 hr active qd Not Available Not Available Not Available meloxicam 15 mg tablet Take 1 tablet every day by oral route with meals for 30 days. 2014 active Not Available Not Available Not Avai lable clindamyci n HCl 150 mg capsule active Not Available Not Available N ot Available metronidaz ole 500 mg tablet active Not Available Not Available Not Available acetaminop hen 300 mg-codeine 30 mg tablet 03/29 completed Not Available Not Available Not Available clopidogre l 75 mg tablet 1 tab PO QD active Not Available Not Available No t Available fenofibrat e micronized 67 mg capsule TAKE ONE CAPSULE BY MOUTH ONCE DAILY active Not Available Not Available No t Available digoxin 250 mcg (0.25 mg) tablet Take 1 tablet(s) every day by oral route for 90 days. active Not Available Not Available No t Available ciprofloxa amy 500 mg tablet Take 1 tablet every 12 hours by oral route for 14 days. active Not Available Not Available No t Available tramadol 50 mg tablet Take 1 tablet every 6 hours by oral route for 15 days. 2014 active Not Available Not Available Not Avai lable triamcinol one acetonide 0.1 % topical cream Apply 1 g twice a day by topical route for 10 days. 03/29 completed Not Available Not Available Not Available Guiatuss AC 10 mg-100 mg/5 mL oral liquid Take 10 mL every 4 hours by oral route for 5 days. 03/17 completed Not Available Not Available Not Available oxycodone- acetaminop hen 5 mg-325 mg tablet 03/29 completed Not Available Not Available Not Available citalopram 20 mg tablet TAKE ONE TABLET BY MOUTH ONCE DAILY 2016 active Not Available Not Available Not Avai lable Nitrostat 0.4 mg sublingual tablet active Not Available Not Available Not Available ciprofloxa amy 0.3 % eye drops active Not Available Not Available No t Available metoprolol tartrate 50 mg tablet 1/4 tab QD active Not Available Not Available No t Available Aspir-81 mg tablet,del ayed release Take 1 tablet every day by oral route. active Not Available Not Available No t Available ibuprofen 600 mg tablet active Not Available Not Available Not Available methylpred nisolone 4 mg tablets in a dose pack Take after eating active Not Available Not Available No t Available hydrocodon e 10 mg-acetami nophen 650 mg tablet active Not Available Not Available No t Available fluticason e propionate 50 mcg/actuat ion nasal spray,susp ension Inhale 1 spray every day by intranasa l route. 03/29 completed Not Available Not Available Not Available fludrocort isone 0.1 mg tablet active Not Available Not Available No t Available Ambien 5 mg tablet TAKE ONE TABLET BY MOUTH AT BEDTIME NEEDED FOR 30 DAYS 2013 active Not Available Not Available Not Avai lable diazepam 5 mg tablet 03/29 completed Not Available Not Available Not Available Bactrim DS 800 mg-160 mg tablet Take 1 tablet every 12 hours by oral route for 14 days. 03/30 completed Not Available Not Available Not Available metoprolol tartrate 25 mg tablet 03/29 completed Not Available Not Available Not Available Citracal plus D active bid Not Available Not Available Not Available Prilosec active qd Not Available Not Avai lable Not Available multivitam in active one a day men Not Available Not Available Not Available B12 active 1000mc g qd Not Available Not Available Not Available Vitals Date Recorded Body weight Heart rate Body mass index (BMI) Body height Systolic blood pressure Diastolic blood pressure Provider Name and Address Organization Details Last Updated DateTime 5 572612. 955780 g 76 /min 34.2 kg/m2 173.99 cm 142 mm[Hg] 72 mm[Hg] Violetta Oberdier [facility] 5 15:25:09 Date Recorded Respiratory rate Provider Name a nd Address Organization Details Last Updated DateTime 12/28/2014 14 /min Nallely Sow MD [address] [facility] [address], [place], [address], [facility] 12/28/2014 15:53:24 Date Recorded Body weight Heart rate Body mass index (BMI) Body height Systolic blood pressure Diastolic blood pressure Provider Name and Address Organization Details Last Updated DateTime 5 775936. 609591 g 64 /min 34 kg/m2 173.99 cm 118 mm[Hg] 62 mm[Hg] Violetta Oberdier [facility] 5 15:33:11 Date Recorded Respiratory rate Provider Name a nd Address Organization Details Last Updated DateTime 02/01/2015 14 min Nallely Sow MD [address], [address] 02/01/2015 15:50:04 Date Recorded Body height Body mass index (BMI) Body weight Oxygen saturation Oxygen saturation in Arterial blood by Pulse oximetry Heart rate Systolic blood pressure Diastolic blood pressure Provider Name and Address Organization Details Last Updated DateTime 5 173.99 cm 33.1 kg/m2 289651. 140209 g 96 % 96 % 57 /min 132 mm[Hg] 68 mm[Hg] Melanie Preet [facility] 5 08:02:29 Date Recorded Respiratory rate Provider Name a nd Address Organization Details Last Updated DateTime 04/12/2015 14 min MD Raul Castillo[address], [address] 04/12/2015 08:06:54 Date Recorded Body height Body weight Body mass index (BMI) Heart rate Oxygen saturation Oxygen saturation in Arterial blood by Pulse oximetry Systolic blood pressure Diastolic blood pressure Provider Name and Address Organization Details Last Updated DateTime 6 173.99 cm 546031. 28 g 33.7 kg/m2 72 /min 95 % 95 % 120 mm[Hg] 72 mm[Hg] Erika Mcdaniel [facility] 6 11:57:51 Date Recorded Body height Body weight Body mass index (BMI) Body temperature Oxygen saturation Oxygen saturation in Arterial blood by Pulse oximetry Heart rate Systolic blood pressure Diastolic blood pressure Provider Name and Address Organization Details Last Updated DateTime 6 173.99 cm 782838. 03 g 34 kg/m2 96.9 [degF] 97 % 97 % 54 /min 138 mm[Hg] 52 mm[Hg] Melanie Oviedo [facility] 6 12:20:50 Social History Question Answer Notes LastModified by Organization Details LastModified Time Tobacco Smoking Status Former Smoker stopped 1983 MD Maureen Castillo [address] [place], [address], [facility] 04/12/2015 08:14:27 Do You Have An Advance Directive? Yes Information not available 01/20/2014 What Is Your Level Of Alcohol Consumption? Occasional One Glass Of Red Wine A Day Information not available 01/20/2014 Are You Blind Or Do You Have Difficulty Seeing? No Information not available 01/20/2014 What Is Your Level Of Caffeine Consumption? Occasional 2 Cups Of Coffe A Day Decaf Information not available 01/20/2014 Are You Deaf Or Do You Have Serious Difficulty Hearing? Yes Hearing Aides Information not available 01/20/2014 What Is Your Occupation? Retired Information not available 01/20/2014 Do You Feel Safe At Home Yes Information not available 01/20/2014 Diet Low Salt Information not available 01/20/2014 Last Colonoscopy 03/2015 Diverticulosis Information not available 04/12/2015 Marital Status Informatio n not available 01/20/2014 How Many Children Do You Have? 3 Information not available 01/20/2014 Seat Belts Used Routinely Yes Information not available 01/20/2014 Do You Use Sunscreen Routinely? No Information not available 01/20/2014 Sex: Unknown Functional Status Question Answer Note LastModified by Organizat ion Details LastModified Time Do you have difficulty walking or climbing stairs? Yes Information not available 01/20/2014 Do you have difficulty doing errands alone? No Information not available 01/20/2014 Do you have difficulty dressing or bathing? No Information not available 01/20/2014 What is your exercise level? Occasional walking Information not available 01/20/2014 Mental Status Question Answer Note LastModified by Organization D etails LastModified Time Do you have difficulty concentrating, remembering or making decisions? No Information no t available 01/20/2014 Family History Relationship Description Onset Age of this Age Resolved Age Notes LastModified by Organization Details LastModified Time Mother Old-age 92 Not available 04/12/2015 08:12:38 Father Malignant neoplastic disease 75 lung caner Not available 04/12/2015 08:12:38 Notes:brother a/w Medical History Condition Response Diabetes N Seizure Disorder N Hepatitis/Liver Disease N CHF N Cancer N Migraines N COPD N Thyroid N Substance Abuse N Psychiatric Disorder Y High Cholesterol Y Heart Disease Y Hypertension Y Osteoporosis N Kidney Disease N Immunizations Vaccine Type Date Status Note Provider Nam e and Address Organization Details Recorded Time Pneumococcal conjugate PCV 13 5 completed Not Available [facility] 06/07/2019 02:40:48 Influenza, split virus, trivalent, preservative 5 completed Not Available [facility] 06/07/2019 02:41:02 pneumococcal, unspecified formulation 8 completed Gail mccabe [facility] 01/20/2014 11:03:02 zoster live 9 [facility]2014 11:03:02 Influenza, split virus, trivalent, PF 4 completed Not Available [facility] 06/07/2019 02:40:56 pneumococcal polysaccharide PPV23 4 completed Not Available [facility] 06/07/2019 02:41:06 Past Encounters Encounter ID Performer Location Encounter Start Date Encounter Closed Date Diagnosis/Indication Diagnosis SNOMED-CT Code Diagnosis ICD10 Code Diagnosis Note [id number] Melanie Oviedo [address] [place] [address] 01/20/2014 10:19:06 01/20/2014 11:43:06 Coronary arteriosclerosis 99993664 S/P RCA REGINA on 01/07/14 at [facility] for unstable angina, doing better. folllowed by Dr. Pettit History of hypertension 183298473 Hyperlipidemia 86773497 Cardiac pa cemaker syndrome 059829904 Insomnia 217545137 [id number] Nallely Sow MD [place] [id number] [facility] [address] [place] [address] 03/12/2014 09:00:28 03/12/2014 10:05:42 Acute bronchitis 78501695 History of hypertension 499104572 Coronary arteriosclerosis 37827507 S/P RCA REGINA on 01/07/14 at [facility] for unstable angina, doing better. folllowed by Dr. Pettit Hyperlipidemia 24372921 [id number] Nallely Sow MD [address] [place] [address] 03/18/2014 08:29:34 03/18/2014 10:26:37 Coronary arteriosclerosis 32272468 S/P RCA REGINA on 01/07/14 at [facility] for unstable angina, doing better. folllowed by Dr. Pettit History of hypertension 456085096 Hyperlipidemia 68651157 HDL 31, LDL57, triglyceri de 277 on 03/17 Cardiac pa cemaker syndrome 087700207 Insomnia 767187951 He is not taking trazodon now, advised to monitor for BPH symptoms while taking it Retention of urine 070762575 with no dysuria, started on Bactrim and flomax Rosacea 316919119 Strate d on triamcinol one Benign pro static hyperplasia with outflow obstruction 348433282 Dizziness 651295102 posi tion rrlated, ? orthostati c hypotensio n, monitor BP and HR take metoprolol and Flomax at night Influenza vaccine needed 6111992575 106 Administra tion of pneumococcal vaccine 80107445 Administra tion of diphtheria, pertussis, and tetanus vaccine 767494172 [id number] [address] [place] [address] 05/13/2014 08:03:06 05/13/2014 08:34:20 Fever 104356935 Dysuria 91622840 suspect prostatiti s, we will treat . S/P cystoscopy on 05/04 History of hypertension 570502070 Hyperlipidemia 45429433 HDL 31, LDL57, triglyceri de 277 on 03/[id number] [place] [address] 12/28/2014 15:14:40 12/28/2014 16:09:20 Backache 949959081 Rt lower back S1 Lumbar radiculopathy 516085621 Rt S1 Coronary arteriosclerosis 43552591 S/P RCA REGINA on 01/07/14 at [facility] for unstable angina, doing better. folllowed by Dr. Pettit Cardiac pa cemaker syndrome 747471470 History of hypertension 783127980 Benign pro static hyperplasia with outflow obstruction 857910329 [id number] Violetta Vela [address] [place] [address] 02/01/2015 15:02:23 02/01/2015 16:17:13 Coronary arteriosclerosis [id number] S/P RCA REGINA on 01/07/14 at [facility] for unstable angina, doing better. folllowed by Dr. Pettit Again in stent restenosis with REGINA on 01/16 for NSTEMI History of hypertension 854852164 Backache 593434935 Rt lo wer back S1 Hyperlipidemia 16236649 HDL 31, LDL57, triglyceri de 277 on 03/17 Inguinal hernia 617333624 Rt side, small , tender sometimes Screening procedure 72272526 Influenza vaccine needed 0606011020 106 [id number] Nallely Sow MD [address] [place] [address] 04/12/2015 07:53:05 04/12/2015 08:42:14 Adult health examination 641240707 Z00.01 Coronary arteriosclerosis 69474833 I25.10 S/P RCA REGINA on 01/07/14 at [facility] for unstable angina, doing better. followed by Dr. Pettit Again in stent restenosis with RCA REGINA on 01/16/15 for NSTEMI Hyperlipidemia 92133295 E78.5 HDL 33, LLDL 67 TRG 232 on 04/04 Benign pro static hyperplasia with outflow obstruction 382094254 N40.1 History of depression 16 2707335 Z86.59 controlled Pain in testicle 2623009 9 N50.8 suspect epidydmiti s Inguinal hernia 94222047 0 K40.90 Rt side, small , tender sometimes Contact dermatitis 61715 004 L25.9 scalp Non-allergic rhinitis 31 90647612 01 J31.0 Cardiac pa cemaker in situ 062179586 Z95.0 2008 [id number] Ana Carrasco, PhD,[employer] [address] [place] [address] 03/29/2016 11:47:50 03/29/2016 13:11:36 Abdominal pain 34917467 R10.9 possible diverticul itus, [id number] Ana Carrasco, PhD,MASSIMOB .C. [address] [place] [address] 04/04/2016 12:03:04 04/04/2016 13:17:02 Neck pain 70885472 M54.2 Hyperlipidemia 83726667 E78.5 Health Concerns Section Related Observation LastModified by Organization Detai ls LastModified Time None Recorded Concern Status LastModified by Organization Details LastModified Time None Recorded Advance Directives Directive Y: Payers Encounter Date Sequence Insurance Name Policy Number Policy Kelley Covered Member ID Kelley Member ID Guarantor Name 12/28/2014 1 [place] [employer] Jr [id number] [employer] 12/28/2014 2 [employer] F Ploof [employer] 02/01/2015 1 [place] [employer] Jr [id number] [employer] 02/01/2015 2 [employer] F Ploof [employer] 04/12/2015 1 [place] [employer] Jr [id number] [employer] 04/12/2015 2 [employer] F Ploof [employer] 03/29/2016 1 [place] [employer] Jr [id number] [employer] 03/29/2016 2 [employer] F Ploof [employer] 04/04/2016 1 [place] [employer] Jr [id number] [employer] 04/04/2016 2 [employer] F Ploof [employer] Notes Date Note Type Note Provider Name and Address Organization Details Recorded Time 12/28/2014 text/html HPI Here for pain in the rt lower back pain started 12/24 and radiate to groin area, Rt inguinal area pain is aching/burning, No Fever, no chills No? MD Raul Castillo[address], [place], [address], [facility] 12/28/2014 16:21:38 02/01/2015 text/html HPI Here for f/u Adm/disc to H, NSTEMI, 01/15- S/P REGINA for Ostea branch for instent stenosis on 01/15 He is doing well, no exertional dyspnea, no cp with exertion. active, chronic back pain, HLP last LP HDL 31, LDL57, triglyceride 277 Rt inguinal pain ,? MD Maureen Castillo [address], [place], [address], [facility] 02/01/2015 16:09:08 04/12/2015 text/html HPI here for MAW He has rt testicular pain started this morning no dysuria He was at [facility] for diverticulitis, on 02/23,, he had colonoscopy by Dr suarez, it was neg except for diverticulosis Active , no CP, SOB, palp,? MD Raul Castillo[address], [place], [address], [facility] 04/12/2015 14:38:24 03/29/2016 text/html Started with loo se stools now has pain on rt side of abdomen with radiation to back Ana Carrasco,PhD, [employer] [address], [place], [address], [facility] 03/29/2016 13:59:11 04/04/2016 text/html Started with rt sided abdominal pain, now in rt upper chest and neck, neck is stiff now, hx of cervical laminectomy with plate insertion Ana Carrasco,PhD, [employer] [address], [place], [address], [facility] 04/04/2016 13:14:19
--- OUTSIDE RECORDS SUMMARY | 2024-06-24 13:28 | XMS_ITS | Data Portability ---
Author Organization ID - [employer], [facility] Address [address] [place] [address] Care Team Providers Care Poiser Name Role Phone SERGIO BROWN Referring Provider Assessment No assessment recorded. Plan of Treatment Reminders Order Date Submit Date Provider Last Modified By Organization Details Last Modified Time Details Appointments None recorded. Lab None recorded. Referral neurologis t referral 2016 017 [place] [address] Gautam LÓPEZ MD ([facility]), [address] [place] [address], [address], 7 11:22:33 Procedures None recorded. Surgeries None recorded. Imaging US, groin [address] (Imaging), [address] [place] [address], [address], 7 11:25:50 Medication Orders citalopram 20 mg tablet 2016 017 INTERFACE [facility], [address] [place], [address], 7 13:27:52 Patient TargetsNo targets recorded. Patient Instructions Encounter Date Encounter Id Patient Instructions Last Modified By Organization Details Last Modified Time 10/12/2016 [id number] learning about mood disorders CHRISTEN Not available 10/14/2016 06:46:27 starting a weigh t loss plan: care instructions CHRISTEN Not available 10/14/2016 06:47:39 Reason for Referral Neurologist Referral for Hea dache headaches, sharp pains Referring Physician: Lyla Daily, Internal Medicine, Encounter Date: 10/12/2016 Results Created Date Observation Date Name Description Value Unit Range Abnormal Flag Note LastModifiedBy Organization Detail LastModifiedTime 10/20/19 17 10/19/2016 - groin ultra sound -uni, [facility] Name: ADOL[place]ERE[place] [address] [facility]. Phys: SERGIO BROWN [place] [address] : 1940 Age: 75 Sex: M Acct: [id number] Loc: F.US PHONE #: [phone] Exam Date: 2016 Status : REG CLI FAX #: Radiol ogy No: Unit No: [id number] EXAMS: REASON FOR EXAM:: [id number] GROIN ULTRAS OUND-U NI,RT DX INGUIN AL HERNIA EXAM DESCRI PTION: - GROIN ULTRAS OUND-U NI,RT COMPLE HOANG DATE: 10/20/19 17 10:52 CLINIC AL INDICA TIONS: DX INGUIN AL HERNIA US GROIN RT DX: HERNIA INGUIN AL COMPAR CRYSTAL: 2015 CT abdome n pelvis . FINDIN GS: Ultras ound evalua tion right groin is not perfor med. Evalua tion of lump area just to the right of the pubis symphy sis reveal s an area of perist alsing bowel. This is seen only when the patien t does a Valsal va maneuv er. I would questi on the possib ility of a develo ping hernia . IMPRES SOPHIE: Questi on the develo ping scratc h sac questi on develo ping hernia . Consid er follow -up CT attent ion pelvis . Electr onical ly Signed by Opal Mccarthy lt on 2016 at 1123 Report ed and signed by: Yuridia Mccarthy lt, Opal CC: Dictat ed Date/T lukasz: 2016 (1121) Techno logist : R. Psicha ris, RDMS RVT Transc ribed Date/T lukasz: 2016 (1121) Transc riptio nist: RAD.VR Orig Print D/T: S: 2016 (1126) BATCH NO: N/A PAGE 1 Signed Report [facility] [address], [place], [address], 10/20/2016 11:29:37 Result Notes None recorded. Problems Name Problem SNOMED Code Status Onset Date Resolution Date Notes Provider Name and Address Organization Details Recorded Time Hyperlipide sandra 97387697 Completed 201602/06/2017 Sergio Brown MD [address], [place], [id number], [facility] [employer] [facility] [employer] [facility] 12:09:54 Insomnia 570620685 Active 2016 MASSIMO Harding [address], [place], [address], [facility] [employer] [facility] 13:10:54 Coronary arterioscle rosis 27870252 Active 2016 MASSIMO Harding [address] [place] [address], [place], [address], [facility] [employer] [facility], [facility] 13:11:06 Inguinal hernia 337395254 Active 2016 MASSIMO Harding [address] [place] [address], [place], [address], [facility] [employer] [facility], [employer] 7 13:11:29 Benign prostatic hyperplasia without outflow obstruction 475152352 Active 2016 MASSIMO Harding [address], [place], [address], [facility] [employer] [facility], [facility] 7 13:11:44 Prostatitis 0485726 Active [address], [place], [address], [facility] [employer] [facility], [facility] 7 13:11:58 Rosacea 860828301 Active 2016 MASSIMO Harding [address], [place], [address], [facility] [employer], [facility] 7 13:12:05 Lumbar radiculopat hy 910643706 Active 2016 MASSIMO Harding [address] [place] [address], [place], [address], [facility] [employer] [facility], [facility] 7 13:12:17 Mixed hyperlipide sandra 101779980 Active 2016 Sergio Brown MD [address], [place], [address], [facility] [employer] [facility], [facility] 7 12:09:59 Cardiac pacemaker in situ 847730072 Active 2016 MD Jay [address], [place], [address], [facility] [employer], [facility] 7 12:10:56 Problem Notes None recorded. Procedures Surgical History Date Name Laterality Status Provider Name and Address Organization Details Recorded Time 12/20/19 14 Angioplasty with stent(s) completed MD Jacqui [address], [place], [address], [facility] [employer] [facility], [facility] 12/28/2016 16:15:40 07/27/19 10 Pacemaker implantation completed MASSIMO Harding [address] [place] [address], [place], [address], [facility] [employer] [facility] [facility], [facility] 10/12/2016 13:14:07 05/21/19 04 Carpal tunnel completed MD Jay [address], [place], [address], [facility] [employer] [facility] [facility], [facility] 12/28/2016 16:15:54 Imaging Results Imaging Date Name Status LastModified by Organiz ation Details LastModified Time 10/19/2016 - groin ultrasound- uni,RT completed [facility] [address] [facility], [place], [address], 10/20/2016 11:29:37 Procedure Notes None recorded. Medical Equipment None Reported. Allergies Allergen ID Allergen Name Allergen Category Reaction Reaction Severity Criticality Documentation Date Start Date Code Code System Note Provider Name and Address Organization Details Recorded Time 126713 Product containin g penicilli n and antibioti c (product) medicatio n hives severe Not available 10/12/2016 32081 05 SNOMED Melanie [place], [place] - [facility], [facility] 7 12:56:43 Medications Name Sig Start Date Stop Date Status Note LastModified by Organization Details LastModified Time atorvastati n 40 mg tablet Take 1 tablet every day by oral route in the evening for 90 days. active Not Available Not Available No t Available primidone 50 mg tablet active Not Available Not Available Not Available diltiazem ER 180 mg capsule,24 hr,extended release one tab daily active Not Available Not Available No t Available ibuprofen 800 mg tablet TAKE ONE TABLET BY MOUTH TWICE A DAY WITH FOOD active Not Available Not Available No t Available metoprolol tartrate 100 mg tablet Take 0.25 tablets every day by oral route. 10/12 completed Not Available Not Available Not Available hydrocodone 5 mg-acetamin ophen 325 mg tablet active Not Available Not Available No t Available metronidazo le 500 mg tablet 10/31 completed Not Available Not Available Not Available acetaminoph en 300 mg-codeine 30 mg tablet 10/31 completed Not Available Not Available Not Available clopidogrel 75 mg tablet Take 1 tablet every day by oral route. active Not Available Not Available No t Available fenofibrate micronized 67 mg capsule Take 1 po daily active Not Available Not Available No t Available digoxin 250 mcg (0.25 mg) tablet Take 1 tablet every day by oral route. 10/12 completed Not Available Not Available Not Available ciprofloxac in 500 mg tablet 10/31 completed Not Available Not Available Not Available diltiazem ER 120 mg capsule,ext ended release 12 hr 10/31 completed Not Available Not Available Not Available citalopram 20 mg tablet Take 1 tablet every day by oral route for 90 days. active Not Available Not Available No t Available Nitrostat 0.[address] 1 tablet by sublingua l route. active Not Available Not Available No t Available Cartia XT 120 mg capsule,ext ended release Take 2 capsules every day by oral route. active Not Available Not Available No t Available lisinopril 10 mg tablet Take 0.5 tablets every day by oral route. active Not Available Not Available No t Available methylpredn isolone 4 mg tablets in a dose pack 10/31 completed Not Available Not Available Not Available neomycin 3.5 mg/g-polymy george B 10,000 unit/g-dexa meth 0.1 % eye oint active Not Available Not Available Not Available metoprolol tartrate 25 mg tablet one tab daily active Not Available Not Available No t Available Citracal plus D active Not Available Not Available Not Available Aspir-81 active Not Available Not Avai lable Not Available Vitamin D active Not Available Not Pat ilable Not Available Prilosec active Not Available Not Avai lable Not Available Multi For Him (with lycopene) active Not Available Not Available No t Available B12 active Not Available Not Availa ble Not Available Combivent Respimat 20 mcg-100 mcg/actuati on solution for inhalation 10/31 completed Not Available Not Available Not Available Vitals Date Recorded Body height Body weight Body mass index (BMI) Heart rate Oxygen saturation Oxygen saturation in Arterial blood by Pulse oximetry Body temperature Systolic blood pressure Diastolic blood pressure Provider Name and Address Organization Details Last Updated DateTime 7 173.99 cm 592287. 07 g 33.2 kg/m2 61 /min 98 % 98 % 96.7 [degF] 146 mm[Hg] 72 mm[Hg] Melanie Oviedo [facility], [facility] 7 13:05:11 Date Recorded Body height Body mass index (BMI) Body weight Oxygen saturation Oxygen saturation in Arterial blood by Pulse oximetry Respiratory rate Heart rate Systolic blood pressure Diastolic blood pressure Provider Name and Address Organization Details Last Updated DateTime 7 173.99 cm 33.2 kg/m2 994277. 79 g 93 % 93 % 17 /min 68 /min 140 mm[Hg] 80 mm[Hg] Celeste Moreno [facility], [facility] 7 08:12:01 Social History Question Answer Notes LastModified by Organizat ion Details LastModified Time Tobacco Smoking Status Former Smoker Sergio Brown MD [address], [address], [facility], [facility] 12/28/2016 16:15:05 What Is Your Level Of Alcohol Consumption? Moderate Information not available 12/28/2016 What Is Your Occupation? Retired Information not available 07/21/2016 Alcohol Use 1-2 Per Day Information not available 12/28/2016 Year Quit Tobacco Use 1983 Information not available 12/28/2016 Marital Status Informatio n not available 12/28/2016 What Was The Date Of Your Most Recent Tobacco Screening? 12/28/2016 Information not available 12/13/2018 Sex: Unknown Functional Status None recorded. Mental Status None recorded. Family History Relationship Description Onset Age of this Age Resolved Age Notes LastModified by Organization Details LastModified Time Father Malignant tumor of lung Not available 2016 16:14:57 Mother Natural Not available 2016 16:15:03 Medical History Condition Response High blood pressure Y Heart disease / Heart Attack Y High Cholesterol Y Immunizations Vaccine Type Date Status Note Provider Nam e and Address Organization Details Recorded Time pneumococcal polysaccharide PPV23 8 completed Melanie mccabe [facility], [facility] 02/07/2017 15:45:00 zoster live 9 completed Melanie mccabe [facility], [facility] 02/07/2017 15:45:14 pneumococcal polysaccharide PPV23 4 completed Melanie mccabe [facility], [facility] 02/07/2017 15:45:30 Pneumococcal conjugate PCV 13 5 beatriz mccabe [facility], [facility] 02/07/2017 15:45:40 influenza, unspecified formulation 5 beatriz mccabe [facility] 02/07/2017 15:46:05 Past Encounters Encounter ID Performer Location Encounter Start Date Encounter Closed Date Diagnosis/Indication Diagnosis SNOMED-CT Code Diagnosis ICD10 Code Diagnosis Note [id number] [facility] [address] [facility],[address] [address] 10/12/2016 12:50:53 10/12/2016 13:47:34 Body mass index 30+ - obesity 144311945 E66.9 Z68.33 weight issues discussed and informatio n on weight loss given. Needs follow up on weight control as scheduled. Education handout on diets given. Exercise counseling done. Will arrange referral for dietitian, nutritioni st, Physical/o ccupationa l therapy as needed or desired. Also will consider pharmaceut ical and supplement al interventi ons Obesity 822993785 E66.9 see BMI above for details Inguinal hernia 53973750 0 K40.90 right questionab le will [place] Depressive disorder 3548 9007 F32.9 Headache 54339157 R51 [id number] [facility] [address] [facility] [address] [place] [address] 10/31/2016 08:02:21 10/31/2016 08:35:29 Lumbar radiculopathy 878706561 M54.16 chronic but stable back pain. Does affect ability to walk long distances secondary to pain Knee pain 49371247 M25.5 69 seeing ortho possible need for replacemen t. Health Concerns Section Related Observation LastModified by Organization Detai ls LastModified Time None Recorded Concern Status LastModified by Organization Details LastModified Time None Recorded Advance Directives Directive None Recorded Payers Encounter Date Sequence Insurance Name Policy Number Policy Kelley Covered Member ID Kelley Member ID Guarantor Name 10/12/2016 1 [place] [employer] A Pl[employer] Jr [id number] [employer] 10/12/2016 2 [employer] A Ploof [employer] 10/31/2016 1 [place] [employer] A Ploof Jr [id number] [employer] 10/31/2016 2 [employer] Notes Date Note Type Note Provider Name and Address Organization Details Recorded Time 10/12/2016 text/html C/O right inguinal discomfort. States that he has shooting head pains at times and they are brief but he would like to see Dr. López. He denies changes in vision or headaches. He also c/o hard stool and straining for the BM to start MASSIMO Harding [address], [place], [address], [facility], [facility] 10/12/2016 13:29:38 10/31/2016 text/html presents to renew handicap sticker MASSIMO Harding [address], [place], [address], [facility], [facility] 10/31/2016 08:27:00
== END 2024-06-24 13:50 | disposition home or self-care (01) ==
PROVIDERS: PCP Internal Medicine; Visit Provider Internal Medicine
DX: I25.10 Atherosclerotic heart disease of native coronary artery without angina pectoris (principal); I10 Essential (primary) hypertension; C61 Malignant neoplasm of prostate; E78.00 Pure hypercholesterolemia, unspecified; K21.9 Gastro-esophageal reflux disease without esophagitis; Z01.818 Encounter for other preprocedural examination

== ENCOUNTER → 2024-06-24 13:14 | Outpatient (BNVA) | payer MEDICARE, OTHER, SELFPAY | PROVIDERS: PCP Internal Medicine; Visit Provider Internal Medicine | DX: Z01.818 Encounter for other preprocedural examination (principal); I25.10 Atherosclerotic heart disease of native coronary artery without angina pectoris; I10 Essential (primary) hypertension; C61 Malignant neoplasm of prostate; E78.00 Pure hypercholesterolemia, unspecified; K21.9 Gastro-esophageal reflux disease without esophagitis | CPT/HCPCS: 96127; 99212 ==

== ENCOUNTER 2024-10-14 15:22 | Outpatient (AMB) | payer MEDICARE, OTHER, SELFPAY ==
[2024-10-14 15:24] VITALS: BP 140/76; PULSE 85; O2SAT 96; BMI 29.3
--- NOTE | 2024-10-14 15:24 | A.OFFPC_ITS ---
Vital Signs 10/14/24 15:24 Height 5 ft 8 in Weight 193 lb BMI 29.3 BP 140/76 H Blood Pressure Location Lt brachial Position Sitting Pulse 85 Pulse Source Pulse Oximeter Pulse Oximetry (%) 96 Oxygen Delivery Method Room Air Intake Visit Reasons: Boil in groin area, Colesterol, Right lower back pain Allergies Penicillins Allergy (Intermediate, Verified 10/14/24 15:25) Hives Tobacco use date assessed: 06/06/24 Fall risk assessment: No Falls in past year Last assessed Fall Risk: 10/14/24 Dental Screening Dental Screen Date: 06/06/24 HPI Colesterol HPI Details diarrhea 2 years - stool testing done- will have a colon test to be done. L groin mass noted 2 weeks ago and this has increased, L scrotal mass [facility] Medical History (Updated 10/14/24 @ 16:06 by Josafat Hawthorne MD) FHx: total knee replacement Myocardial infarct, old Hypertension MDS (myelodysplastic syndrome) Metastatic bone tumor Prostate cancer Surgical History (Updated 03/31/24 @ 12:21 by Josafat Hawthorne MD) History of appendectomy History of cataract surgery H/O toe surgery S/P trigger finger release S/P TURP H/O rotator cuff surgery H/O neck surgery History of back surgery History of heart artery stent Social History (Updated 03/31/24 @ 12:21 by Josafat Hawthorne MD) Housing: House Alcohol intake: former Patient Tobacco Use Status: Former Tobacco user Tobacco use type: Cigarette Years Smoked: quit 1983 e-Cigarette/Vaping Use: Never Used Second Hand Smoke Exposure: No service: Yes Current occupational status: retired Cognitive needs: No Hearing needs: Yes Vision needs: Yes Questionnaire PHQ-9 Over the last 2 weeks, how often have you been bothered by any of the following problems? 1. Little interest or pleasure in doing things: nearly every day 2. Feeling down, depressed, or hopeless: not at all 3. Trouble falling or staying asleep, or sleeping too much: not at all 4. Feeling tired or having little energy: several days 5. Poor appetite or overeating: not at all 6. Feeling bad about yourself - or that you are a failure or have let yourself or your family down: not at all 7. Trouble concentrating on things, such as reading the newspaper or watching television: not at all 8. Moving or speaking so slowly that other people could have noticed. Or the opposite - being so fidgety or restless that you have been moving around a lot more than usual: not at all 9. Thoughts that you would be better off or of hurting yourself in some way: not at all Total score: 4 Depression Screening Interpretation: Positive Depression Screening Done: Yes Source: Developed by Drs. Brandon Webb, Jennifer Gray, Kevin Murray and colleagues, with an educational sofía from [employer]. Thrive Questionnaire Date Thrive assessed: 10/14/24 I am a: Patient What is your living situation today?: I have a steady place to live Within the past 12 months, did the food you bought not last and you didn't have the money to get more?: Never true Within the past 12 months, did you worry whether your food would run out before you got money to buy more?: Never true Do you have trouble paying for medicines?: No Do you have trouble getting transportation to medical appointments?: Yes Do you have trouble paying your heating and electricity bill?: No Do you have trouble taking care of your child, family member or friend?: No Do you have trouble with day-to-day activities such as bathing, preparing meals, shopping, managing finances, etc.?: No Are you currently unemployed and looking for a job?: No Are you interested in more education?: No Please select the resources that you would like help with: None Currently or been in a relationship where the following occur: No concerns reported THRIVE Score: 1 AUDIT C Alcohol Use Questionnaire (AUDIT-C) 1. How often do you have a drink containing alcohol?: Never 3. How often do you have six or more drinks on one occasion?: Never Total Score: 0 BENJI-7 AMB Questionnaire BENJI-7 Date BENJI - 7 assessed: 10/14/24 Feeling nervous, anxious, or on edge: 0 = Not at all Not being able to stop or control worryin = Not at all Worrying too much about different things: 0 = Not at all Trouble relaxin = Not at all Being so restless that it is hard to sit still: 0 = Not at all Becoming easily annoyed or irritable: 0 = Not at all Feeling afraid as if something awful might happen: 0 = Not at all Total BENJI-7 score (0-4 normal; 5-9 mild; 10-14 moderate; 15-21 severe): 0 Source: Developed by Drs. Brandon Webb, Jennifer Gray, Kevin Murray and colleagues, with an educational sofía from [employer]. Physical exam (Primary Care) Vital Signs: Last Vital Signs Pulse 85 10/14/24 15:24 BP 140/76 H 10/14/24 15:24 Pulse Ox 96 10/14/24 15:24 Oxygen Delivery Method Room Air 10/14/24 15:24 BMI result Body Mass Index 29.3 Tobacco/Smoking Status: Tobacco use Status Tobacco use date assessed 06/06/24 10/14/24 15:29 Patient Tobacco Use Status Former Tobacco user 10/14/24 15:29 Tobacco use type Cigarette 10/14/24 15:29 e-Cigarette/Vaping Use Never Used 10/14/24 15:29 PHQ-9: PHQ-9 Score PHQ-9: Total score 4 10/14/24 15:29 Depression Screening Interpretation: Positive Thrive Assessment: Date of Thrive Assessment Date Thrive assessed 10/14/24 10/14/24 15:29 Currently or been in a relationship where the following occur: No concerns reported Const General: alert; No acute distress Eyes Conjunctivae: conjunctivae normal Resp Auscultation: clear to auscultation bilaterally Cardio Rate: regular rate Rhythm: regular rhythm GI Inspection: Yes normal to inspection Other: L scrotal mass with yellowish tip 4 x 4 cm Extrem General: Yes normal to inspection and No edema Coding Level of Care Code Est Pt Level 4 (23586) Complex EM visit Add On G2211 Diagnoses Prostate cancer C61 Coronary artery disease involving [place] coronary artery of [place] heart without angina pectoris I25.10 Coronary Disease-Associated Artery/Lesion type: [place] artery [place] vs. transplanted heart: [place] heart Associated angina: without angina Primary hypertension I10 Hypertension type: primary hypertension Hypercholesterolemia E78.00 Gastroesophageal reflux disease without esophagitis K21.9 Esophagitis presence: without esophagitis Diarrhea R19.7 Scrotal abscess N49.2 Assessment & Plan Assessment & Plan (1) Prostate cancer: Comment: 06/2021 [facility] [place] no surgery [facility] 11/08/2023 spine x-ray showing extensive osteoblastic metastasis throughout the lumbar spine and bony pelvis no pathologic fractures are seen severe degenerative changes in the lumbar spine. CT scan done of the abdomen pelvis showing numerous sclerotic metastasis throughout the bony pelvis sacrum and iliac normal-appearing sacroiliac joints. 07/10/2023 CT scan showing severe sclerotic metastasis within the right femur no fracture minimal degenerative changes in the right hip CT spine lumbar without contrast March 06 2024 extensive lytic and osteoblastic changes of the spine and pelvis consistent with diffuse metastatic disease no evidence of significant central canal stenosis neural foraminal narrowing at L3-4 L4-5 and L5-S1 secondary to bony hypertrophy Code(s): C61 - Malignant neoplasm of prostate Category: Medical Plan: Follows up with Hematology-Oncology on apalutamide and leuprolide. Concern about bone density and do in October 2024 (2) Coronary artery disease: Comment: 2014 stent [facility] [address] Rozina Fuller Code(s): I25.10 - Atherosclerotic heart disease of [place] coronary artery without angina pectoris Category: Medical Qualifiers: Coronary Disease-Associated Artery/Lesion type: [place] artery [place] vs. transplanted heart: [place] heart Associated angina: without angina Qualified Code(s): I25.10 - Atherosclerotic heart disease of [place] coronary artery without angina pectoris Plan: Control the cholesterol, weight, blood pressure, diabetes on aspirin (3) Hypertension: Code(s): I10 - Essential (primary) hypertension Category: Medical Qualifiers: Hypertension type: primary hypertension Qualified Code(s): I10 - Essential (primary) hypertension Plan: Continue with blood pressure medication. Decrease salt intake and exercise metoprolol 100 mg once a day (4) Hypercholesterolemia: Code(s): E78.00 - Pure hypercholesterolemia, unspecified Category: Medical Plan: Avoid fried foods, chicken skin, eggs, butter margarine, pastries and meat. Be it pork or beef they have a lot of cholesterol on atorvastatin 80 mg once a day and fenofibrate (5) GERD (gastroesophageal reflux disease): Code(s): K21.9 - Gastro-esophageal reflux disease without esophagitis Category: Medical Qualifiers: Esophagitis presence: without esophagitis Qualified Code(s): K21.9 - Gastro-esophageal reflux disease without esophagitis Plan: Avoid the foods that causes that usually spicy foods, tomato products, juices, coffee, soda and foods that your sensitive to. After eating do not lie down, allow 3-4 hours before in lie down. And keep the head of bed above 30 degrees to avoid the acid from going up. (6) Diarrhea: Code(s): R19.7 - Diarrhea, unspecified Category: Medical Plan: Patient will have a follow-up with Gastroenterology meanwhile advised stool testing (7) Scrotal abscess: Code(s): N49.2 - Inflammatory disorders of scrotum Category: Medical Plan History of Present Illness The patient is an 83-year-old male presenting with chronic diarrhea. He reports that the diarrhea has been ongoing for approximately 8 weeks. This issue was previously evaluated during an Emergency Department visit in July, but the symptoms have continued. The patient's history includes coronary artery disease, prostate cancer diagnosed in 2021, hypertension, hypercholesterolemia, and GERD. His current medications and detailed treatment history regarding prostate cancer, for which he follows up with hematology oncology, were also discussed. There are no specific factors mentioned that worsen or alleviate the diarrhea, nor any associated symptoms. Health Maintenance - Blood pressure management with metoprolol 100 mg daily - Cholesterol management with atorvastatin 80 mg and fenofibrate - Continuation of current GERD management - PSA monitoring for prostate cancer - Scheduled DEXA scan for osteopenia monitoring in October 2024 - Discussion and plan for cardiology follow-up in May 2023 Social History Review of Systems - Gastrointestinal: Reports diarrhea for 8 weeks - Musculoskeletal: Reports bone density concerns (osteopenia) Physical Exam Results - Labs: PSA monitoring for prostate cancer - Tests and Diagnostics: DEXA scan showing osteopenia Plan 1. Pain management with tramadol was not pursued due to patient dissatisfaction. It is essential to maintain adequate hydration, especially in the context of diarrhea.: Patient was informed and verbally consented to the use of an ambient scribe for clinic note documentation during this visit. Discussion Notes During the visit, we discussed the need for further evaluation of the patient's chronic diarrhea, including stool testing and referral to gastroenterology. For prostate cancer, we reviewed the continued use of apalutamide and the monitoring strategy with regular PSA checks. Concerns about bone density were acknowledged following the DEXA scan, with plans for further assessment in October 2024. The cardiovascular management plan was affirmed, including metoprolol and statin therapy, with a reminder of the cardiology follow-up early next year. We concluded that tramadol was not suitable for pain management due to the patient's past experiences. The importance of hydration was emphasized, and newman rgical referral logistics were discussed should the need arise. Patient Instructions - Follow up with gastroenterology for chronic diarrhea assessment. - Complete stool testing as advised. - Continue taking metoprolol and atorvastatin as prescribed. - Stay hydrated; aim for adequate fluid intake daily. - Await field identification specialist's referral for further evaluation. - Attend cardiology follow-up in May 2023. - Monitor for any worsening of osteopenia, and prepare for DEXA scan in October 2024. - Keep track of PSA levels for prostate cancer monitoring. Orders: Referrals General Surgery Referral N49.2 - Inflammatory disorders of scrotum Medications: New sulfamethoxazole-trimethoprim 800-160 mg (Bactrim DS) 1 tab PO BID 14 tabs 0RF N49.2 - Inflammatory disorders of scrotum
--- OUTSIDE RECORDS SUMMARY | 2024-10-14 15:27 | XMS_ITS | Data Portability ---
Author Organization [place] - [facility]rology [facility] Address [address] [facility] [place] [address] Care Team Providers Care Major Account Manager Name Role Phone LILLY GOLDEN Primary Care [...] recorded. Medication Orders primidone 250 mg tablet 2021 022 [id number], [address], [place], [place], [id number], 03:38:48 primidone 250 mg tablet 2020 021 [id number], [address], [place], [address], 20:21:08 Patient TargetsNo targets recorded. Patient InstructionsNo instructions recorded. Reason for Referral None Reported. Problems No Known Problems Procedures Surgical History Date Name Laterality Status Provider Name and Address Organization Details Recorded Time Back Surgery completed Lori [facility]ly [facility] Neurolog y CT 07/29/2020 15:09:05 replacement of bilateral knee joints completed Lori Lara [facility] Neurology CT 07/29/2020 15:09:15 cervical discography completed Lori Lara [facility] Neurology CT 07/29/2020 15:09:24 Unlisted procedure shoulder completed Lori Lara [facility] Neurology CT 07/29/2020 15:09:38 terpineol measurement completed [facility] Neurology CT 07/29/2020 15:09:51 Carpal Tunnel Surgery completed [facility] Neurology CT 07/29/2020 15:10:06 Imaging Results None recorded. Procedure Notes None recorded. Medical Equipment None Reported. Allergies Allergen ID Allergen Name Allergen Category Reaction Reaction Severity Criticality Documentation Date Start Date Code Code System Note Provider Name and Address Organization Details Recorded Time 3830 Product containin g penicilli n (product) medicatio n hives Not available Not available 07/29/2020 [id number] SNOMED Lori Lara [place], [place] - Neurology CT 15:05:46 Medications Name Sig Start Date Stop [...] If insuffici ent AFTER 4 attempts call FOR assistanc e. Max USE ONCE daily, [...] Respiratory rate Body temperature Heart rate Systolic And Diastolic Provider Name and Address Organization Details Last Updated DateTime 2 172.72 cm 29.8 kg/m2 65344.1 g 14 /min 96.8 [degF] 67 /min 142/82 mm[Hg] Jessie Arias [place] - [facility]rology [facility] 2 10:07:15 Date Recorded Body height Body mass index (BMI) Body weight Respiratory rate Body temperature Heart rate Systolic And Diastolic Provider Name and Address Organization Details Last Updated DateTime 1 172.72 cm 31.9 kg/m2 89691.4 g 16 /min 98.1 [degF] 64 /min 142/88 mm[Hg] Lori Lara [place] - [facility]rology [facility] 1 15:11:20 Social History Question Answer Notes LastModified by Organizat ion Details LastModified Time Tobacco Smoking Status Former Smoker Lori Lara [place], [place] - Neurology [facility] 07/29/2020 15:07:12 Do You Have An Advance Directive? Yes Information not available 07/29/2020 What Is Your Level Of Caffeine Consumption? Occasional Information not available 07/29/2020 Currently No Information not available 07/29/2020 What Type Of Diet Are You Following? REGULAR Information not available 07/29/2020 Which Of Your Hands Is Dominant? Right Information not available 07/29/2020 Live Alone Or With Others? Alone Information not available 07/29/2020 What Was The Date Of Your Most Recent Tobacco Screening? 07/29/2020 Information not available 07/29/2020 How Much Tobacco Do You Smoke? 2 PPD Information not available 07/29/2020 General Stress Level Low Information not available 07/29/2020 Sex: Male Functional Status Question Answer Note LastModified by Organizat ion Details LastModified Time Do you use any illicit or recreational drugs? No Information not available 07/29/2020 What is your level of alcohol consumption? Moderate Information not available 07/29/2020 Do you or have you ever used smokeless tobacco? Never used smokeless tobacco Information not available 07/29/2020 Do you or have you ever used e-cigarettes or vape? Never used electronic cigarettes Information not available 07/29/2020 What is your exercise level? Moderate Information [...] [id number] Gautam HEATH MD Main Office [address] [address] [place] [address] 07/29/2020 14:58:40 07/29/2020 15:50:38 Cervico-occipital neuralgia 74511524 M54.81 Essential tremor 2794737 09 G25.0 Gautam HEATH MD Main Office [address] [facility] [place] [address] 07/27/2021 09:57:10 07/27/2021 10:23:25 Cervico-occipital neuralgia 44716429 M54.81 Essential tremor 6571364 09 G25.0 Health Concerns Section Related Observation LastModified by Organization Detai ls LastModified Time None Recorded Concern Status LastModified by Organization Details LastModified Time None Recorded Advance Directives Directive Y: Payers Encounter Date Sequence Insurance Name Policy Number Policy Kelley Covered Member ID Kelley Member ID Guarantor Name 07/29/2020 1 [place] Ascencion Perez Jr [id number] Ascencion Nicholas Ploof 07/29/2020 2 [employer] (MEDICARE SUPPLEMENT) Ascencion Nicholas Ploof [id number] Ascencion Nicholas Ploof 07/27/2021 1 [place] Ascencion Nicholas Ploof Jr [id number] Ascencion Nicholas Ploof 07/27/2021 2 [employer] (MEDICARE SUPPLEMENT) Ascencion Nicholas Ploof [id number] Ascencion Nicholas Ploof Notes Date Note Type [...] primidone 250 mg qhs. Gautam HEATH MD [address] [facility], [place], [address], [facility] Neurology [facility] 07/29/2020 20:30:19 07/27/2021 text/html This [...] time 20 mins Gautam HEATH MD [address] [facility] [address] [facility], [place], [address], [facility] [place] 07/27/2021 10:26:24
== END 2024-10-14 16:16 | disposition home or self-care (01) ==
LOC: HO.HMCH 15:23
PROVIDERS: PCP Internal Medicine; Visit Provider Internal Medicine
DX: C61 Malignant neoplasm of prostate (principal); I25.10 Atherosclerotic heart disease of native coronary artery without angina pectoris; I10 Essential (primary) hypertension; E78.00 Pure hypercholesterolemia, unspecified; K21.9 Gastro-esophageal reflux disease without esophagitis; R19.7 Diarrhea, unspecified; N49.2 Inflammatory disorders of scrotum

== ENCOUNTER → 2024-10-14 15:22 | Outpatient (BNVA) | payer MEDICARE, OTHER, SELFPAY | PROVIDERS: PCP Internal Medicine; Visit Provider Internal Medicine | DX: C61 Malignant neoplasm of prostate (principal); I25.10 Atherosclerotic heart disease of native coronary artery without angina pectoris; I10 Essential (primary) hypertension; E78.00 Pure hypercholesterolemia, unspecified; K21.9 Gastro-esophageal reflux disease without esophagitis; R19.7 Diarrhea, unspecified; N49.2 Inflammatory disorders of scrotum | CPT/HCPCS: 99212 ==

== ENCOUNTER 2024-10-23 11:13 | Outpatient (AMB) | payer MEDICARE, OTHER, SELFPAY ==
--- NOTE | 2024-10-23 11:16 | A.OFFVIS_ITS ---
Vital Signs 10/23/24 11:23 Height 5 ft 8 in Weight 194 lb BMI 29.5 BP 127/65 Blood Pressure Location Rt brachial Position Sitting Pulse 92 Intake Visit Reasons: Inflammatory disorders of scrotum Intake Note: Patient referred by pcp Dr. Hawthorne for Lt scrotal mass. First noticed 3wks. Patient c/o: swelling, tender improved w/ Bactrim course. Service Coordinator Required: No Accompanied by: Self / Same As Patient Allergies Penicillins Allergy (Intermediate, Verified 10/23/24 11:21) Hives Medication List - Last Reconciled 10/23/24 by Juan Pretty MD apalutamide (Erleada) 240 mg PO DAILY ascorbic acid (vitamin C) 1 g PO Q6H aspirin (Pipo Chewable Low Dose Aspirin) 162 mg PO DAILY atorvastatin 80 mg PO DAILY cyanocobalamin (vitamin B-12) 3,000 mcg PO DAILY fenofibrate micronized 67 mg PO DAILY leuprolide (Lupron Depot) 3.75 mg IM .Q6 month metoprolol succinate ER 100 mg PO DAILY sj-zy-lntsc-lutein-herbal 293 120 mcg-150 mcg -50 mg (Alive Men's 50 Plus Multivitamin) tabs PO omeprazole 20 mg PO DAILY sulfamethoxazole-trimethoprim 800-160 mg (Bactrim DS) 1 tab PO BID HPI HPI Inflammatory disorders of scrotum: Details: 83-year-old male referred for a cyst on the scrotum. He says that about 3 weeks ago, he had noticed a pimple like mass on the left scrotal area. He says that became swollen and was very tender about 2 weeks ago. He says he could hardly walk at that time. He was able to see his primary care physician. He was started on antibiotics. He says that this started to drain sometime last week. He says this feels much better now. He says that he is much more comfortable with walking. He denies any persistent drainage currently. He has a known history of coronary artery disease and has stents in place. He says he has does on low-dose aspirin. [facility] Medical History (Updated 10/23/24 @ 11:35 by Juan Pretty MD) Scrotal cyst FHx: total knee replacement Myocardial infarct, old Hypertension MDS (myelodysplastic syndrome) Metastatic bone tumor Prostate cancer Surgical History (Updated 03/31/24 @ 12:21 by Josafat Hawthorne MD) History of appendectomy History of cataract surgery H/O toe surgery S/P trigger finger release S/P TURP H/O rotator cuff surgery H/O neck surgery History of back surgery History of heart artery stent Social History (Updated 03/31/24 @ 12:21 by Josafat Hawthorne MD) Housing: House Alcohol intake: former Patient Tobacco Use Status: Former Tobacco user Tobacco use type: Cigarette Years Smoked: quit 1983 e-Cigarette/Vaping Use: Never Used Second Hand Smoke Exposure: No service: Yes Current occupational status: retired Cognitive needs: No Hearing needs: Yes Vision needs: Yes Review of Systems Const Denies chills and Denies fever(s) Card Denies chest pain, Denies dyspnea and Denies dyspnea on exertion Resp Denies cough, Denies dyspnea and Denies dyspnea on exertion GI Denies hematochezia and Denies change in bowel habits Denies hematuria and Denies difficulty urinating Musc Denies back pain and Denies limited range of motion Neuro Denies focal weakness and Denies convulsions Psych Denies depression and Denies mood swings Physical Exam Vital Signs: Last Vital Signs Pulse 92 10/23/24 11:23 BP 127/65 10/23/24 11:23 BMI result Body Mass Index 29.5 Const General: comfortable and no acute distress Resp Effort & Inspection: normal respiratory effort Cardio Rate: regular rate GI Palpation (GI): Soft to palpation, not firm and nontender Other: Small mild cystic induration in the left scrotal skin consistent with an epidermal cyst Assessment & Plan Assessment & Plan (1) Scrotal cyst: Code(s): L72.9 - Follicular cyst of the skin and subcutaneous tissue, unspecified Category: Medical Plan: He has what appears to be an epidermal cyst on the scrotum. This seemed to have had become swollen and had drained spontaneously. This has very minimal induration and has no drainage currently. He says that this seems to be asymptomatic currently I did tell him that 1 option is to excise this under local anesthesia. I reviewed with him the technique of the procedure He says that he will consider this down the line. He says he will come back to the office if he decides to proceed. Coding Level of Care Code New Pt Level 3 (71537) Diagnoses Scrotal cyst L72.9
[2024-10-23 11:23] VITALS: BP 127/65; PULSE 92; BMI 29.5
== END 2024-10-23 11:27 | disposition home or self-care (01) ==
LOC: HO.HGS 11:14
PROVIDERS: PCP Internal Medicine; Visit Provider Surgery
DX: L72.9 Follicular cyst of the skin and subcutaneous tissue, unspecified (principal)
CPT/HCPCS: 99203

== ENCOUNTER → 2024-10-23 11:13 | Outpatient (BNVA) | payer MEDICARE, OTHER, SELFPAY | PROVIDERS: PCP Internal Medicine; Visit Provider Surgery | DX: L72.9 Follicular cyst of the skin and subcutaneous tissue, unspecified (principal) | CPT/HCPCS: 99202 ==

== ENCOUNTER 2024-11-13 10:18 | Outpatient (AMB) | payer MEDICARE, OTHER, SELFPAY ==
--- NOTE | 2024-11-13 10:28 | A.OFFPC_ITS ---
Vital Signs 11/13/24 10:29 Height 5 ft 8 in Weight 196 lb 6 oz BMI 29.9 BP 138/70 Blood Pressure Location Lt brachial Position Sitting Pulse 87 Pulse Source Pulse Oximeter Temp 97.3 F Temp Source Temporal Artery Scan Pulse Oximetry (%) 97 Oxygen Delivery Method Room Air Intake Visit Reasons: Scrotal abscess Intake Note: Patient is here to follow up on Scrotal abscess. 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: Not Required per policy Accompanied by: Self / Same As Patient Allergies Penicillins Allergy (Intermediate, Verified 11/13/24 10:40) Hives Medication List - Last Reconciled 11/13/24 by Fadumo Salinas PA-C apalutamide (Erleada) 240 mg PO DAILY ascorbic acid (vitamin C) 1 g PO Q6H aspirin (Pipo Chewable Low Dose Aspirin) 162 mg PO DAILY atorvastatin 80 mg PO DAILY cyanocobalamin (vitamin B-12) 3,000 mcg PO DAILY fenofibrate micronized 67 mg PO DAILY leuprolide (Lupron Depot) 3.75 mg IM .Q6 month metoprolol succinate ER 100 mg PO DAILY gj-jj-wxbvi-lutein-herbal 293 120 mcg-150 mcg -50 mg (Alive Men's 50 Plus Multivitamin) tabs PO omeprazole 20 mg PO DAILY sulfamethoxazole-trimethoprim 800-160 mg (Bactrim DS) 1 tab PO BID Tobacco use date assessed: 11/13/24 Fall risk assessment: No Falls in past year Last assessed Fall Risk: 11/13/24 Dental Screening Dental Screen Date: 06/06/24 HPI Scrotal abscess HPI Details 83-year-old male with history of GERD, h ypertension, hypercholesterolemia, myelodysplastic syndrome and history of prostate cancer last seen by Dr. Hawthorne 09/2024 coming in for acute problem. In review of the notes, patient was seen by general surgery 10/23/2024 for scrotal abscess that was draining at the time of his visit. They did recommend surgical excision at that time which was declined by the patient and he was advised to follow up at needed. Presenting with follow-up on a scrotal abscess and management of chronic diarrhea. The scrotal abscess was previously evaluated by general surgery and was draining on its own without the need for surgical intervention. The patient reports occasional mild pain in the area but no new lumps or drainage. Chronic diarrhea has been ongoing since the onset of cancer treatment, with episodes occurring every other day. The patient experiences diarrhea immediately after eating, with no relief from Imodium or fiber supplements. There is associated fecal incontinence, but no use of protective pads. The patient has a scheduled colonoscopy to further investigate the cause of diarrhea. Dysphagia is noted with difficulty swallowing pills and hoarseness of voice. A swallow study and potential endoscopy were discussed to evaluate the cause of dysphagia. [facility] Medical History Scrotal cyst FHx: total knee replacement Myocardial infarct, old Hypertension MDS (myelodysplastic syndrome) Metastatic bone tumor Prostate cancer Surgical History History of appendectomy History of cataract surgery H/O toe surgery S/P trigger finger release S/P TURP H/O rotator cuff surgery H/O neck surgery History of back surgery History of heart artery stent Social History Housing: House Alcohol intake: former Patient Tobacco Use Status: Former Tobacco user Tobacco use type: Cigarette Years Smoked: quit 1983 e-Cigarette/Vaping Use: Never Used Second Hand Smoke Exposure: Yes service: Yes Current occupational status: retired Cognitive needs: No Hearing needs: Yes Vision needs: Yes Questionnaire Thrive Questionnaire Date Thrive assessed: 10/14/24 I am a: Patient What is your living situation today?: I have a steady place to live Within the past 12 months, did the food you bought not last and you didn't have the money to get more?: Never true Within the past 12 months, did you worry whether your food would run out before you got money to buy more?: Never true Do you have trouble paying for medicines?: No Do you have trouble getting transportation to medical appointments?: Yes Do you have trouble paying your heating and electricity bill?: No Do you have trouble taking care of your child, family member or friend?: No Do you have trouble with day-to-day activities such as bathing, preparing meals, shopping, managing finances, etc.?: No Are you currently unemployed and looking for a job?: No Are you interested in more education?: No Please select the resources that you would like help with: None Currently or been in a relationship where the following occur: No concerns reported THRIVE Score: 1 AUDIT C Alcohol Use Questionnaire (AUDIT-C) 2. How many drinks containing alcohol do you have on a typical day when you are drinking?: 1 or 2 3. How often do you have six or more drinks on one occasion?: Never Total Score: 0 BENJI-7 AMB Questionnaire BENJI-7 Date BENJI - 7 assessed: 10/14/24 Source: Developed by Drs. Brandon Webb, Jennifer Gray, Kevin Murray and colleagues, with an educational sofía from [employer]. Review of Systems Const Denies body aches, Denies chills, Denies fever(s) and Denies poor appetite Eyes Reports no additional complaints ENT Reports dysphagia and Denies dizziness Card Denies chest pain, Denies edema, Denies lightheadedness and Denies dyspnea Resp Denies cough and Denies dyspnea GI Reports abdominal pain (occasional cramps ), Denies constipation, Reports dysphagia, Reports diarrhea, Denies nausea and Denies vomiting Reports no additional complaints Musc Reports no additional complaints and Denies abnormal gait Skin/Breast Reports system reviewed and no additional complaints, except as documented Neuro Denies abnormal gait and Denies dizziness Psych Reports no additional complaints Physical exam (Primary Care) Vital Signs: Last Vital Signs Temp 97.3 F 11/13/24 10:29 Pulse 87 11/13/24 10:29 BP 138/70 11/13/24 10:29 Pulse Ox 97 11/13/24 10:29 Oxygen Delivery Method Room Air 11/13/24 10:29 BMI result Body Mass Index 29.9 Tobacco/Smoking Status: Tobacco use Status Tobacco use date assessed 11/13/24 11/13/24 10:30 Patient Tobacco Use Status Former Tobacco user 11/13/24 10:30 Tobacco use type Cigarette 11/13/24 10:30 e-Cigarette/Vaping Use Never Used 11/13/24 10:30 Thrive Assessment: Date of Thrive Assessment Date Thrive assessed 10/14/24 11/13/24 10:30 Currently or been in a relationship where the following occur: No concerns reported Const General: cooperative, healthy appearing, comfortable and no acute distress Orientation/consciousness: patient oriented x3 HENMT Head: Yes normocephalic Ears: hearing grossly normal bilaterally General nose exam: Normal external nose present Eyes General: appearance normal, both eyes and all related structures Conjunctivae: conjunctivae normal Neck Neck: Yes full ROM and Yes no lymphadenopathy Resp Effort & Inspection: normal respiratory effort Auscultation: clear to auscultation bilaterally, no crackles, no rales, no rhonchi and no wheezes Cardio Rate: regular rate Rhythm: regular rhythm Skin General skin exam: no rashes or lesions noted Neuro General: patient oriented x3 Gait exam (Neuro): Normal gait present Extrem General: Yes normal to inspection, Yes full ROM and No edema Psych Affect: normal affect Attitude: cooperative Insight: Good insight present (Psych) Judgement: Good judgement present (Psych) Coding Level of Care Code Est Pt Level 3 (91749) Diagnoses Scrotal abscess N49.2 Diarrhea R19.7 Primary hypertension I10 Hypertension type: primary hypertension Dysphagia R13.10 Assessment & Plan Assessment & Plan (1) Scrotal abscess: Code(s): N49.2 - Inflammatory disorders of scrotum Category: Medical Plan: Patient declined exam today and denies issues with the abscess. He will continue to follow with general surgery as needed. (2) Diarrhea: Code(s): R19.7 - Diarrhea, unspecified Category: Medical Plan: Patient having chronic diarrhea and is undergoing work[place] through [facility]. He completed stool culture which was normal and is scheduled for colonoscopy in December. Discussed possible anti-diarrheals to ask his specialist about. (3) Hypertension: Code(s): I10 - Essential (primary) hypertension Category: Medical Qualifiers: Hypertension type: primary hypertension Qualified Code(s): I10 - Essential (primary) hypertension Plan: Continue on current blood pressure medication. Avoid salt intake and encourage healthy diet and regular exercise. (4) Dysphagia: Code(s): R13.10 - Dysphagia, unspecified Category: Medical Plan: Advised patient to discuss with his GI provider for consideration of endoscopy with scheduled colonoscopy. Otherwise plan to obtain barium swallow for futher evaluation. Plan The plan includes monitoring the scrotal abscess for any changes or symptoms that may require surgical intervention. The patient is advised to contact the surgeon if the abscess becomes bothersome or shows signs of infection. For chronic diarrhea, the patient is scheduled for a colonoscopy to investigate potential underlying causes. In the meantime, the patient is advised to continue current medications and discuss additional treatment options with the manager of human resources, including potential specialty medications. Regarding dysphagia, a swallow study is recommended to assess esophageal function. The patient is also advised to discuss the possibility of an endoscopy with the manager of human resources to evaluate the cause of swallowing difficulties and hoarseness. This note was constructed using voice recognition software. While every effort has been made to ensure accuracy and estimator jewelry, still areas may have been included sometimes these areas may affect the content or meeting of the given symptoms. Total time spent caring for the patient today was twenty minutes. This includes time spent before the visit reviewing the chart, time spent during the visit, and time spent after the visit and documentation. Patient was informed and verbally consented to the use of an ambient scribe for clinic note documentation during this visit.
[2024-11-13 10:29] VITALS: BP 138/70; PULSE 87; TEMP 36.3; O2SAT 97; BMI 29.9
--- OUTSIDE RECORDS SUMMARY | 2024-11-13 11:54 | XMS_ITS | Data Portability ---
Author Organization [place] [facility] Address [address] [place] [address] Care Team Providers Care Water System Operator Name Role Phone LILLY GOLDEN Primary Care [...] Orders primidone 250 mg tablet 2021 022 [id number], [address], [place], [place], [id number], 03:38:48 primidone 250 mg tablet 2020 021 gli[id number], [address], [place], [address], 20:21:08 Patient TargetsNo targets recorded. Patient InstructionsNo instructions recorded. Reason for Referral None Reported. Problems No Known Problems Procedures Surgical History Date Name Laterality Status Provider Name and Address Organization Details Recorded Time Back Surgery completed Lori Lara [facility] [place] 07/29/2020 15:09:05 replacement of bilateral knee joints completed Lori Lara [facility] [place] 07/29/2020 15:09:15 cervical discography completed Lori Lara [facility] [place] 07/29/2020 15:09:24 Unlisted procedure shoulder completed Lori Lara [facility] [place] 07/29/2020 15:09:38 terpineol measurement completed Lori Lara [facility] 07/29/2020 15:09:51 Carpal Tunnel Surgery completed Lori Lara [facility] [place] 07/29/2020 15:10:06 Imaging Results None recorded. Procedure Notes None recorded. Medical Equipment None Reported. Allergies Allergen ID Allergen Name Allergen Category Reaction Reaction Severity Criticality Documentation Date Start Date Code Code System Note Provider Name and Address Organization Details Recorded Time 3830 Product containin g penicilli n (product) medicatio n hives Not available Not available 07/29/2020 [id number] SNOMED Lori Lara [place], [place] [facility] [place] 15:05:46 Medications Name Sig Start Date Stop Date Status Note LastModified by Organization Details LastModified Time trimix fa INJECT 30 UNITS intracorp oreally, 10 minutes BEFORE anticipat ed sex. If insuffici ent, increase DOSE 5 units each time but ON another DAY. If insuffici ent AFTER 4 attempts call FOR assistanc e. Max USE ONCE daily, 3 times PER WEEK. active Not Available Not Available No t Available phenylephri ne 1 mg/ml injection solution If [...] Updated DateTime 2 172.72 cm 29.8 kg/m2 40050.1 g 14 /min 96.8 [degF] 67 /min 142 mm[Hg] 82 mm[Hg] Jessie Arias [place] [facility] 2 10:07:15 Date Recorded Body height Body mass index (BMI) Body weight Respiratory rate Body temperature Heart rate Systolic blood pressure Diastolic blood pressure Provider Name and Address Organization Details Last Updated DateTime 1 172.72 cm 31.9 kg/m2 73538.4 g 16 /min 98.1 [degF] 64 /min 142 mm[Hg] 88 mm[Hg] Lori Lara [place] [facility] 1 15:11:20 Social History Question Answer Notes LastModified by Organizat ion Details LastModified Time Tobacco Smoking Status Former Smoker Lori Lara [place], [place] - [facility] 07/29/2020 15:07:12 Do [...] [id number] Gautam HEATH MD Main Office [address] [place] [address] 07/29/2020 14:58:40 07/29/2020 15:50:38 Cervico-occipital neuralgia 77447392 M54.81 Essential tremor 7613515 09 G25.0 Gautam HEATH MD Main Office [address] [place] [address] 07/27/2021 09:57:10 07/27/2021 10:23:25 Cervico-occipital neuralgia [id number] M54.81 Essential tremor 7790142 09 G25.0 Health Concerns Section Related Observation LastModified by Organization Detai ls LastModified Time None Recorded Concern Status LastModified by Organization Details LastModified Time None Recorded Advance Directives Directive Y: Payers Insurance Date Sequence Insurance Name Policy Number Policy Kelley Covered Member ID Kelley Member ID Guarantor Name 11/22/2022 1 [place] [employer] [id number] [employer] 11/22/2022 2 [employer] (MEDICARE SUPPLEMENT) [employer] Ploof [id number] [employer] Notes Date Note Type [...] 250 mg qhs. Gautam HEATH MD [address], [place], [address], [facility] 07/29/2020 20:30:19 07/27/2021 [...] time 20 mins Gautam HEATH MD [address], [place], [address], [facility] 07/27/2021 10:26:24
== END 2024-11-13 11:00 | disposition home or self-care (01) ==
LOC: HO.HMCH 10:18
PROVIDERS: PCP Internal Medicine
DX: N49.2 Inflammatory disorders of scrotum (principal); R19.7 Diarrhea, unspecified; I10 Essential (primary) hypertension; R13.10 Dysphagia, unspecified

== ENCOUNTER → 2024-11-13 10:18 | Outpatient (BNVA) | payer MEDICARE, OTHER, SELFPAY | PROVIDERS: PCP Internal Medicine | DX: N49.2 Inflammatory disorders of scrotum (principal); R19.7 Diarrhea, unspecified; R13.10 Dysphagia, unspecified; I10 Essential (primary) hypertension | CPT/HCPCS: 99212 ==

== ENCOUNTER 2025-04-01 13:21 | Outpatient (AMB) | payer MEDICARE, OTHER, SELFPAY ==
--- OUTSIDE RECORDS SUMMARY | 1999-04-11 17:23 | XMS_ITS | Encounter Summary ---
Author Organization [facility] Address [address] [place] [address] Care Team Providers Care Financial Professional Name Role Phone Unavailable Primary Care Provider Unavailabl e Encounter Details Date Type Department Care Team (Late st Contact Info) Description 04/11/1999 17:23 EST Hospital Encounter [facility] - Other [address] [place] [address] Thony Roland MD [address] [place] [phone] Unknown, ProviderMD Social History Tobacco Use Types Packs/Day Years Used Date Smoking Tobacco: Former Cigarettes 2 24 1 961 - 1983 Smokeless Tobacco: Never Alcohol Use Standard Drinks/Week Comments Not Currently 7 (1 standard drink = 0.6 oz pur e alcohol) AUDIT-C Answer Date Recorded Q1: How often do you have a drink containing alc ohol? 2-3 times a week 12/02/2021 Q2: How many drinks containi ng alcohol do you have on a typical day when you are drinking? 1 or 2 12/02/2021 Q3: How often do you have si x or more drinks on one occasion? Weekly 12/02/2021 Overall Financial Resource Strain (CARDIA) Answe r Date Recorded How hard is it for you to pa y for the very basics like food, housing, medical care, and heating? Not very hard 12/02/2021 PHQ-2 Answer Date Recorded PHQ-2 SUBTOTAL 0 12/02/2021 Hunger Vital Sign Answer Date Recorded Within the past 12 months, y ou worried that your food would run out before you got the money to buy more. Never true 12/03/19 22 Within the past 12 months, t he food you bought just didn't last and you didn't have money to get more. Never true 12/02/2021 PRAPARE - Transportation Answer Date Re corded In the past 12 months, has l ack of transportation kept you from medical appointments or from getting medications? No 11/18 In the past 12 months, has l ack of transportation kept you from meetings, work, or from getting things needed for daily living? No 12/02/2021 Housing Stability Vital Sign Answer Jairo e Recorded In the last 12 months, was t here a time when you were not able to pay the mortgage or rent on time? No 12/02/2021 In the last 12 months, how many places have you lived? 1 12/02/2021 In the last 12 months, was t here a time when you did not have a steady place to sleep or slept in a long-term (including now)? No 12/02/2021 Interpersonal Safety Answer Date Record ed How often does anyone, johnson banda family, hit, punch or physically hurt you? Never 12/02/2021 How often does anyone, johnson banda family, insult, scream, curse or threaten to hurt you? Never 12/02/2021 Education Answer Date Recorded What is the highest level of school you have completed or the highest degree you have received? High school graduate 12/02/2021 Sex and Gender Information Value Date Recorded Sex Assigned at Not on file Legal Sex Male 17:53 EST Gender Identity Male 11/11/2019 11:49 EDT Sexual Orientation Not on file COVID-19 Exposure Response Date Recorded In the last 10 days, have yo u been in contact with someone who was confirmed or suspected to have Coronavirus/COVID-19? Unable to assess 09/29/2022 18:08 EDT documented as of this encounter Functional Status documented as of this encounter Plan of Treatment Not on file documented as of this encounter Procedures Procedure Name Priority Date/Time Associated Diagnosis Comments PTT Routine 04/11/1999 9:40 EST PROTIME Routine 04/11/1999 9:40 EST COMPLETE BLOOD COUNT Routine 04/11/1999 9:40 EST BASIC METABOLIC PANEL (BMP) Routine 04/11/1999 9:40 EST documented in this encounter Results * PTT (04/11/1999 9:40 EST) PTT 27 20 - 31 secs [facility] Comment:Therapeutic Heparin range: 65-120 seconds 04/11/1999 9:40 EST 04/11/1999 12:45 EST us Thony Roland MD HEMATOLOGY & PF4 ORDE RABLES Final Result Performing Organization Address [facility] de Phone Number [facility] [address] [place] [address] * PROTIME (04/11/1999 9:40 EST) Pro Time 12.6 11.7 - 13.4 secs [facility] Comment:Patient on Coumadin I.N.R. 1.0 0.8 - 1.2 Ratio [facility] Comment: Moderate Intensity Coumadin INR = 2.0-3.0 Adjustments in anticoagulant therapy dose should be based upon the INR and NOT the Pro Time Patient on Coumadin 04/11/1999 9:40 EST 04/11/1999 12:45 EST us Thony Roland MD HEMATOLOGY & PF4 ORDE RABLES Final Result Performing Organization Address [facility] de Phone Number [facility] [address] [place] [address] * (ABNORMAL) HEMAGRAM (04/11/1999 9:40 EST) WBC 3.57(L) 4.0 - 10.4 K/cmm [facility] RBC 4.44 4.36 - 5.78 M/cmm [facility] Hemoglobin 14.4 13.8 - 17.3 gm/dl [facility] HCT 42.6 39.5 - 50.2 % [facility] MCV 96(H) 81 - 95 fl [facility] MCH 32.4 27.6 - 33.0 pg [facility] MCHC 33.8 32.8 - 36.4 gm/dl [facility] PLT 209 141 - 320 K/cmm [facility] 04/11/1999 9:40 EST 04/11/1999 12:45 EST us Thony Roland MD HEMATOLOGY & PF4 ORDE [facility] Final Result Performing Organization Address [facility] Co de Phone Number [facility] [address] [place] [address] * BASIC METABOLIC PANEL (04/11/1999 9:40 EST) Sodium 140 136 - 145 mEq/L [facility] Potassium 4.5 3.5 - 5.0 mEq/L [facility] Chloride 104 96 - 110 mEq/L [facility] CO2 28 24 - 30 mEq/L [facility] BUN 12 10 - 26 mg/dl [facility] Creatinine 1.1 0.7 - 1.5 mg/dl [facility] Glucose, Serum 90 70 - 110 mg/dl [facility] 04/11/1999 9:40 EST 04/11/1999 12:45 EST Thony Roland MD CHEMISTRY & BLOOD GAS ORDERABLES Final Result Performing Organization Address [facility] Co de Phone Number [facility] [address] [place] [address] documented in this encounter Visit Diagnoses Not on filedocumented in this encounter Additional Health Concerns Infection Onset Date Last Indicated Resolved Time R/O COVID-19 Comment:negative 08/14/2021 08/14/2021 08/15/2021 9:49 EDT R/O COVID-19 09/29/2022 09/29/2022 09/29/2022 17:2 8 EDT documented as of this encounter
--- OUTSIDE RECORDS SUMMARY | 2000-03-08 19:43 | XMS_ITS | Encounter Summary ---
Author Organization [facility] Address [address] [place] [address] Care Team Providers Care Power Plant Supervisor Name Role Phone Unavailable Primary Care Provider Unavailabl e Encounter Details Date Type Department Care Team (Late st Contact Info) Description 03/08/2000 20:43 EDT Hospital Encounter [facility] - Other [address] [place] [address] Randal Goldstein MD [address] [facility] [address] [place], [place] [id number] Unknown, ProviderMD Social History Tobacco Use Types Packs/Day Years Used Date Smoking Tobacco: Former Cigarettes 2 24 1 1983 Smokeless Tobacco: Never Alcohol Use Standard [...] place to sleep or slept in a mcc (including now)? No 12/02/2021 Interpersonal Safety Answer [...] Procedure Name Priority Date/Time Associated Diagnosis Comments RETICULOCYTE COUNT Routine 03/08/2000 11 :45 EDT COMPLETE BLOOD COUNT Routine 03/08/2000 11:45 EDT PSA SCREEN Routine 03/08/2000 11:45 EDT IRON Routine 03/08/2000 11:45 EDT FOLATE Routine 03/08/2000 11:45 EDT FERRITIN Routine 03/08/2000 11:45 EDT VITAMIN B12 Routine 03/08/2000 11:45 EDT documented in this encounter Results * RETICULOCYTE COUNT (03/08/2000 11:45 EDT) Retic Ct (Uncorrected) 1.1 0.5 - 2.0 % [facility] 03/08/2000 11:4 5 EDT 03/08/2000 13:27 EDT Randal Goldstein MD HEMATOLOGY & PF4 ORDE RABLES Final Result Performing Organization Address [facility] Co de Phone Number [facility] [address] [place] [address] * PSA SCREEN (03/08/2000 11:45 EDT) PSA 0.5 0 - 3.5 ng/ml [facility] Comment: Serum PSA concentration should not be interpreted as absolute evidence for the presence or absence of malignant disease. Assayed utilizing [employer] chemiluminescent technology. Values obtained by using different assay methods cannot be used interchangeably. 03/08/2000 11:4 5 EDT 03/08/2000 13:27 EDT Randal Goldstein MD CHEMISTRY & BLOOD GAS ORDERABLES Final Result Performing Organization Address [facility]/ZIP Co de Phone Number [facility] [address] [place] [address] * (ABNORMAL) IRON (03/08/2000 11:45 EDT) Iron 55(L) 70 - 180 ug/dl [facility] 03/08/2000 11:4 5 EDT 03/08/2000 13:27 EDT Randal Goldstein MD CHEMISTRY & BLOOD GAS ORDERABLES Final Result Performing Organization Address [facility]/ZIP Co de Phone Number [facility] [address] [place] [address] * (ABNORMAL) FOLATE (03/08/2000 11:45 EDT) Folate >20.0(H) 2.8 - 18.0 ng/ml [facility] 03/08/2000 11:4 5 EDT 03/08/2000 13:27 EDT Randal Goldstein MD CHEMISTRY & BLOOD GAS ORDERABLES Final Result Performing Organization Address [facility] de Phone Number [facility] [address] [place] [address] * FERRITIN (03/08/2000 11:45 EDT) Ferritin 264 42 - 313 ng/ml [facility] 03/08/2000 11:4 5 EDT 03/08/2000 13:27 EDT Randal Goldstein MD CHEMISTRY & BLOOD GAS ORDERABLES Final Result Performing Organization Address [facility] de Phone Number [facility] [address] [place] [address] * (ABNORMAL) HEMAGRAM (03/08/2000 11:45 EDT) WBC 4.71 4.0 - 10.4 K/cmm [facility] RBC 4.23(L) 4.36 - 5.78 M/cmm [facility] Hemoglobin 13.7(L) 13.8 - 17.3 gm/dl [facility] HCT 39.9 39.5 - 50.2 % [facility] MCV 94 81 - 95 fl [facility] MCH 32.3 27.6 - 33.0 pg [facility] MCHC 34.3 32.8 - 36.4 gm/dl [facility] PLT 217 141 - 320 K/cmm [facility] RDW-CV 12.1 11.8 - 14.1 % [facility] 03/08/2000 11:4 5 EDT 03/08/2000 13:27 EDT us Randal Goldstein MD HEMATOLOGY & PF4 ORDE RABLES Final Result Performing Organization Address [facility]/ZIP Co de Phone Number [facility] [address] [place] [address] * VITAMIN B12 (03/08/2000 11:45 EDT) [facility] Vitamin B-12 466 250 - 1100 pg/ml [facility] 03/08/2000 11:4 5 EDT 03/08/2000 13:27 EDT Randal Goldstein MD CHEMISTRY & BLOOD GAS ORDERABLES Final Result Performing Organization Address [facility] Co de Phone Number [facility] [address] [place] [address] documented in this encounter Visit Diagnoses Not on filedocumented in this encounter Additional Health Concerns Infection Onset Date Last Indicated Resolved Time R/O COVID-19 Comment:negative 08/14/2021 08/14/2021 08/15/2021 9:49 EDT R/O COVID-19 09/29/2022 09/29/2022 09/29/2022 17:2 8 EDT documented as of this encounter
--- OUTSIDE RECORDS SUMMARY | 2002-04-30 13:10 | XMS_ITS | Encounter Summary ---
Author Organization [facility] Address [address] [place] [address] Care Team Providers Care Hospital Monitor Name Role Phone Unavailable Primary Care Provider Unavailabl e Encounter Details Date Type Department Care Team (Late st Contact Info) Description 04/30/2002 13:10 [facility] Hospital Encounter [facility] - Other [address] [place] [address] Pavithra Tee PA [address] [place] [address] Unknown, Provider, Social History Tobacco Use Types Packs/Day Years Used Date Smoking Tobacco: Former Cigarettes 2 24 1 - 1983 Smokeless Tobacco: Never Alcohol Use [...] place to sleep or slept in a residential (including now)? No 12/02/2021 Interpersonal Safety Answer [...] on file documented as of this encounter Visit Diagnoses Not on filedocumented in this encounter Additional Health Concerns Infection Onset Date Last Indicated Resolved Time R/O COVID-19 Comment:negative 08/14/2021 08/14/2021 08/15/2021 9:49 EDT R/O COVID-19 09/29/2022 09/29/2022 09/29/2022 17:2 8 EDT documented as of this encounter
--- OUTSIDE RECORDS SUMMARY | 2002-09-01 18:29 | XMS_ITS | Encounter Summary ---
Author Organization [facility] Address [address] [place] [address] Care Team Providers Care Lace Paper Machine Operator Name Role Phone Unavailable Primary Care Provider Unavailabl e Encounter Details Date Type Department Care Team (Late st Contact Info) Description 09/01/2002 19:29 EDT Hospital Encounter [facility] - Other [address] [place] [address] Pavithra Tee PA [address] [place] [address] Social History Tobacco Use Types Packs/Day Years Used Date Smoking Tobacco: Former Cigarettes 2 24 1 96 - 1983 Smokeless Tobacco: Never Alcohol Use [...] place to sleep or slept in a penitentiary (including now)? No 12/02/2021 Interpersonal Safety Answer [...]
--- OUTSIDE RECORDS SUMMARY | 2002-10-02 17:02 | XMS_ITS | Encounter Summary ---
Author Organization [facility] Address [address] [place] [address] Care Team Providers Care Pattern Lease Inspector Name Role Phone Unavailable Primary Care Provider Unavailabl e Encounter Details Date Type Department Care Team (Late st Contact Info) Description 10/02/2002 18:02 EDT Hospital Encounter [facility] - Other [address] [place] [address] Pavithra Tee PA [address] [place] [address] Social History Tobacco Use Types [...] place to sleep or slept in a fpc (including now)? No 12/02/2021 Interpersonal Safety Answer [...]
--- OUTSIDE RECORDS SUMMARY | 2002-10-17 19:29 | XMS_ITS | Encounter Summary ---
Author Organization [facility] Address [address] [place] [address] Care Team Providers Care Drafting Detailer Name Role Phone Unavailable Primary Care Provider Unavailabl e Encounter Details Date Type Department Care Team (Late st Contact Info) Description 10/17/2002 20:29 EDT Hospital Encounter [facility] - Other [address] [place] [address] Pavithra Tee PA [address] [place] [address] Social History Tobacco Use Types [...] place to sleep or slept in a correction (including now)? No 12/02/2021 Interpersonal Safety Answer [...]
[2025-04-01 13:30] VITALS: BP 130/62; PULSE 87; O2SAT 96; BMI 30.3
--- NOTE | 2025-04-01 13:30 | AM.OFFVISMDC ---
Intake Vital Signs 04/01/25 13:30 Height 5 ft 8 in Weight 199 lb BMI 30.3 BP 130/62 Blood Pressure Location Lt brachial Position Sitting Pulse 87 Pulse Source Pulse Oximeter Pulse Oximetry (%) 96 Oxygen Delivery Method Room Air Intake Visit Reasons: V G0439 Allergies Penicillins Allergy (Intermediate, Verified 04/01/25 13:30) Hives Medication List - Last Reconciled 04/01/25 by Josafat Hawthorne MD apalutamide (Erleada) 240 mg PO DAILY ascorbic acid (vitamin C) 1 g PO Q6H aspirin (Pipo Chewable Low Dose Aspirin) 162 mg PO DAILY atorvastatin 80 mg PO DAILY cyanocobalamin (vitamin B-12) 3,000 mcg PO DAILY fenofibrate micronized 67 mg PO DAILY isosorbide mononitrate ER 15 mg PO DAILY leuprolide (Lupron Depot) 3.75 mg IM .Q6 month metoprolol succinate ER 100 mg PO DAILY mb-ct-pyotv-lutein-herbal 293 120 mcg-150 mcg -50 mg (Alive Men's 50 Plus Multivitamin) tabs PO omeprazole 20 mg PO DAILY HPI SWV [id number] HPI Details [facility],, [facility] cancer [place], [facility] Dr. Burke Woods [facility] Medical History (Updated 04/01/25 @ 13:49 by Josafat Hawthorne MD) Scrotal cyst FHx: total knee replacement Myocardial infarct, old Hypertension MDS (myelodysplastic syndrome) Metastatic bone tumor Prostate cancer Surgical History History of appendectomy History of cataract surgery H/O toe surgery S/P trigger finger release S/P TURP H/O rotator cuff surgery H/O neck surgery History of back surgery History of heart artery stent Social History Housing: House Alcohol intake: former Patient Tobacco Use Status: Former Tobacco user Tobacco use type: Cigarette Years Smoked: quit 1983 e-Cigarette/Vaping Use: Never Used Second Hand Smoke Exposure: Yes service: Yes Current occupational status: retired Cognitive needs: No Hearing needs: Yes Vision needs: Yes Questionnaire Medicare Wellness Checkup What is your age?: 80 or older What gender do you identify with?: male During the past 4 weeks, how much have you been bothered by emotional problems such as feeling anxious, depressed, irritable, sad or downhearted, and blue?: not at all During the past 4 weeks, has your physical & emotional health limited your social activities with family, friends, neighbors, or groups?: quite a bit During the past 4 weeks, how much bodily pain have you generally had?: severe pain During the past 4 weeks, was someone available to help you if you needed & wanted help?: yes, as much as I wanted During the past 4 weeks, what was the hardest physical activity you could do for at least 2 minutes?: light Can you get to places out of walking distance without help? (For eg., can you travel alone on buses, taxis or drive your car?): Yes Can you go shopping for groceries or clothes without someone's help?: Yes Can you prepare your own meals?: Yes Can you do your housework without help?: Yes Because of any health problems, do you need the help of another person with your personal care needs such as eating, bathing, dressing or getting around the house?: No Can you handle your own money without help?: Yes During the past 4 weeks, how would you rate your health in general?: fair During the past 4 weeks how have things been going for you?: pretty well Are you having difficulties driving your car?: no Do you always fasten your seat belt when you are in a car?: yes, usually During past 4 weeks, have you been bothered by the following: never: Teeth or denture problems? and Problems using the telephone?, seldom: Falling or dizzy when standing up, sometimes: Trouble eating well? and Tiredness or fatigue? and always: Sexual problems? Have you fallen 2 or more times in the past year?: No Are you afraid of falling?: Yes Are you a smoker?: no During the past 4 weeks, how many drinks of wine, beer, or other alcoholic beverages did you have?: no alcohol at all Do you exercise for about 20 minutes 3 or more times a week?: no, I usually do not exercise this much Have you been given information to help with the following?: yes: Hazards in your house that might hurt you? and no: Keeping track of your medications? How often do you have trouble taking medicines the way you have been told to take them?: I always take medicine as prescribed How confident are you that you can control & manage most of your health problems?: very confident What is your race?: White PHQ-9 Over the last 2 weeks, how often have you been bothered by any of the following problems? 1. Little interest or pleasure in doing things: not at all 2. Feeling down, depressed, or hopeless: not at all 3. Trouble falling or staying asleep, or sleeping too much: not at all 4. Feeling tired or having little energy: more than half the days 5. Poor appetite or overeating: more than half the days 6. Feeling bad about yourself - or that you are a failure or have let yourself or your family down: not at all 7. Trouble concentrating on things, such as reading the newspaper or watching television: not at all 8. Moving or speaking so slowly that other people could have noticed. Or the opposite - being so fidgety or restless that you have been moving around a lot more than usual: not at all 9. Thoughts that you would be better off or of hurting yourself in some way: not at all Total score: 4 Depression Screening Interpretation: Positive Depression Screening Done: Yes 60253 - PHQ-9 Billing: Yes Source: Developed by Drs. Brandon Webb, Jennifer Gray, Kevin Murray and colleagues, with an educational sofía from [employer]. Review of Systems Const Denies poor appetite and Denies weakness Eyes Denies no additional complaints ENT Reports Normal hearing present, Denies dizziness, Denies nasal congestion, Denies tinnitus and Denies sore throat Card Denies chest pain, Denies syncope, Denies rapid heart rate and Denies dyspnea Resp Denies cough and Denies dyspnea GI Denies change in stool character, Reports constipation, Denies diarrhea, Denies nausea and Denies vomiting Denies dysuria and Denies urinary frequency Neuro Reports Normal hearing present, Denies confusion, Denies dizziness, Denies syncope and Denies weakness Psych Denies confusion Physical Exam Vital Signs: Last Vital Signs Pulse 87 04/01/25 13:30 BP 130/62 04/01/25 13:30 Pulse Ox 96 04/01/25 13:30 Oxygen Delivery Method Room Air 04/01/25 13:30 BMI result Body Mass Index 30.3 Const General: No confusion Orientation/consciousness: No confusion HEENT Head: Yes normocephalic Ears: external ears normal and TM's normal bilaterally Face and sinus: Yes normal facial exam Mouth: moist mucous membranes Throat: Yes tonsils normal Eyes Conjunctivae: conjunctivae normal Pupils: Equal, round and reactive pupils present and Pupil accommodation reflex normal Direct Ophthalmoscopy: normal light reflex Neck Neck: No lymphadenopathy Thyroid: Thyroid normal Chest Chest palpation & inspection: normal inspection of the chest Resp Effort & Inspection: normal respiratory effort and no audible wheezes Auscultation: clear to auscultation bilaterally, no crackles, no wheezes and lung sounds not diminished Cardio Rate: regular rate Rhythm: regular rhythm Peripheral pulses: radial pulses present and dorsalis pedis present GI Palpation (GI): no masses Auscultation: normal bowel sounds and normoactive bowel sounds Rectal Exam - Male: Yes deferred Skin General skin exam: no rashes or lesions noted Rashes: no rashes Neuro General: No confusion Cranial nerves: Yes Equal, round and reactive pupils present and Yes Normal hearing present Cognition (Neuro): normal cognition Gait exam (Neuro): Normal gait present Motor exam (neuro): 5/5 motor strength present throughout Deep tendon reflexes (DTR's): Right brachioradialis reflex intensity grade: 2+, Left brachioradialis reflex intensity grade: 2+, Right patellar reflex intensity grade: 2+ and Left patellar reflex intensity grade: 2+ Extrem General: No edema Immunizations Tenivac (PF) 5 Lf unit-2 Lf unit/0.5 mL intramuscular suspension Performing Provider: Josafat Hawthorne MD [place] [facility] [place] [facility] Administered by: Urmila Witt CMA on 04/01/25 14:09 Dose Route Admin Location Dispensed Lot Number Expiration Date [facility] Information Management Specialist 0.5 mL IM Left Deltoid 0.5 mL [id number] 01/19/27 [id number] [employer] Total Dispensed Waste 0.5 mL 0 % VIS Given Date VIS Provided VIS Publication Date 04/01/25 Single Vaccine 20 Eligibility Eligibility Date Funding Source Not [facility] Eligible 04/01/25 Private Assessment & Plan Assessment & Plan (1) Medicare annual wellness visit, subsequent: Code(s): Z00.00 - Encounter for general adult medical examination without abnormal findings Plan: Patient is advised to eat healthy, keep well hydrated, keep active and have adequate sleep. (2) Scrotal cyst: Code(s): L72.9 - Follicular cyst of the skin and subcutaneous tissue, unspecified Plan: Patient has seen the surgeon and option of surgery (3) Lumbar degenerative disc disease: Code(s): M51.36 - Other intervertebral disc degeneration, lumbar region Plan: Keep active lose weight (4) Prostate cancer: Comment: 06/2021 [facility] Urology [facility] surgery [facility] 11/08/2023 spine x-ray showing extensive osteoblastic metastasis throughout the lumbar spine and bony pelvis no pathologic fractures are seen severe degenerative changes in the lumbar spine. CT scan done of the abdomen pelvis showing numerous sclerotic metastasis throughout the bony pelvis sacrum and iliac normal-appearing sacroiliac joints. 07/10/2023 CT scan showing severe sclerotic metastasis within the right femur no fracture minimal degenerative changes in the right hip CT spine lumbar without contrast March 06 2024 extensive lytic and osteoblastic changes of the spine and pelvis consistent with diffuse metastatic disease no evidence of significant central canal stenosis neural foraminal narrowing at L3-4 L4-5 and L5-S1 secondary to bony hypertrophy Code(s): C61 - Malignant neoplasm of prostate Plan: Continue to follow-up with urology. Patient also complains of low back pain and will be seeing [facility] for some injections. Patient is on treatment with early MICHELINE and Lupron (5) GERD (gastroesophageal reflux disease): Code(s): K21.9 - Gastro-esophageal reflux disease without esophagitis Qualifiers: Esophagitis presence: without esophagitis Qualified Code(s): K21.9 - Gastro-esophageal reflux disease without esophagitis Plan: Avoid the foods that causes that usually spicy foods, tomato products, juices, coffee, soda and foods that your sensitive to. After eating do not lie down, allow 3-4 hours before in lie down. And keep the head of bed above 30 degrees to avoid the acid from going up. (6) Hypercholesterolemia: Code(s): E78.00 - Pure hypercholesterolemia, unspecified Plan: Avoid fried foods, chicken skin, eggs, butter margarine, pastries and meat. Be it pork or beef they have a lot of cholesterol LDL goal of less than 70 and triglyceride of less than 150 patient is on fenofibrate. (7) Coronary artery disease: Comment: 2014 [place]/[address] [facility] [address] Rozina Fuller Code(s): I25.10 - Atherosclerotic heart disease of [place] coronary artery without angina pectoris Qualifiers: Coronary Disease-Associated Artery/Lesion type: [place] artery [place] vs. transplanted heart: [place] heart Associated angina: without angina Qualified Code(s): I25.10 - Atherosclerotic heart disease of [place] coronary artery without angina pectoris Plan: Control the cholesterol, weight, blood pressure, on aspirin 81 mg once a day (8) Hypertension: Code(s): I10 - Essential (primary) hypertension Qualifiers: Hypertension type: primary hypertension Qualified Code(s): I10 - Essential (primary) hypertension Plan: Continue with blood pressure medication. Decrease salt intake and exercise takes metoprolol 100 mg once a day (9) Thrombocytopenia: Code(s): D69.6 - Thrombocytopenia, unspecified (10) MDS (myelodysplastic syndrome): Comment: Dr. Tracey Code(s): D46.9 - Myelodysplastic syndrome, unspecified Plan: Patient follows up with Hematology-Oncology and is aware of the leukopenia and thrombocytopenia Plan History of Present Illness The patient is an 84-year-old male with a history of coronary artery disease, hypertension, and being overweight, who presents for an annual wellness visit. He has a history of prostate cancer diagnosed in 2021 and follows with urology and the [facility]. His last clinical encounter was in October 2024 for a scrotal abscess. He was also seen by a surgeon on October 23 for a scrotal cyst, and surgery was discussed as an option. The patient follows with pain management for low back pain and has been diagnosed with lumbar radiculopathy and lumbar stenosis. He was previously advised to get a lumbar interlaminal injection. His last colonoscopy was performed in November 2024. Previous labs from 2023 were notable for high calcium, high iron, and high triglycerides. Blood work from March 18 showed improvement in his anemia, with a hemoglobin of 12.2 and hematocrit of 35.4. Health Maintenance - The patient is here for an annual wellness visit. - He was advised to remain active and lose weight. - Last colonoscopy was in November 2024. - Follows with urology for prostate cancer. - Follows with a software specialist for back pain. - Blood work is due, but the patient expressed reluctance to have it drawn today. Social History - Activity: Advised to keep active. Review of Systems - Musculoskeletal: Reports low back pain. Physical Exam General: Overweight, cooperative, healthy appearing, comfortable, no acute distress and well developed Orientation: Patient oriented x3 Limitations: No limitations Head: Normal to inspection Ears: Hearing grossly normal bilaterally Nose: Normal external nose present Face and sinus: Normal facial exam Eyes: Appearance normal, both eyes and all related structures Neck: Normal visual inspection and Yes full ROM Respiratory: Normal respiratory effort and able to speak in complete sentences. Clear to auscultation bilaterally Cardiovascular: Regular rate and rhythm. Normal S1 and S2 GI: Normal to inspection. Soft to palpation and nontender Skin: No rashes or lesions noted Neuro: Patient oriented x3 Extremities: Normal to inspection Results - Labs (March 18): Hemoglobin 12.2 g/dL and Hematocrit 35.4%, noted as an improvement in anemia. - Labs (2023): Revealed high calcium, high iron, and high triglycerides. - Procedures: Colonoscopy was performed in November 2024. Plan Patient was informed and verbally consented to the use of an ambient scribe for clinic note documentation during this visit. 1. Annual Wellness Visit The patient is advised to keep active and lose weight. Further blood work is required. 2. Coronary Artery Disease Continue aspirin 81 mg once a day. 3. Hypertension Continue metoprolol 100 mg once a day. 4. Hyperlipidemia The goal is an LDL of less than 70 mg/dL and triglycerides of less than 150 mg/dL. The patient is on fenofibrate. 5. History Of Prostate Cancer Continue to follow up with urology. 6. Lumbar Radiculopathy With Lumbar Stenosis The patient was previously advised to get a lumbar interlaminal injection and will continue to follow up with his software specialist. 7. Scrotal Cyst The patient has been seen by a surgeon, and surgery is an option for his scrotal cyst. Discussion Notes I reviewed the patient's ongoing medical issues and management plan. We discussed the management of his coronary artery disease with aspirin 81 mg daily and his hypertension with metoprolol 100 mg daily. I noted his cholesterol goals are an LDL < 70 and triglycerides < 150, and he continues on fenofibrate. I reinforced the need to continue follow-up with urology for his prostate cancer and with his software specialist for lumbar stenosis, for which an injection was previously recommended. We discussed that surgery remains an option for his scrotal cyst. I advised him to keep active and lose weight. I also explained that further blood tests are necessary for his care, despite his reluctance to have blood drawn at this time. Patient Instructions - Continue to take your aspirin 81 mg once a day for your heart condition. - Continue to take your metoprolol 100 mg once a day for your blood pressure. - Continue taking your fenofibrate for high cholesterol. - It is important to stay active and try to lose weight. - Continue to follow-up with your urologist for your prostate condition. - We will need to get blood work done to monitor your health. Orders: Orders PSA,Total (Free>4and<10) Today E78.00 - Pure hypercholesterolemia, unspecified Td Immunization Today Z23 - Encounter for immunization Quality Reporting (2019) Depression/Bipolar (159/160/161/177) PHQ-9: Total score: 4 Coding Level of Care Code Medicare Subsequent (G0439) Diagnoses Medicare annual wellness visit, subsequent Z00.00 Scrotal cyst L72.9 Lumbar degenerative disc disease M51.36 Prostate cancer C61 Gastroesophageal reflux disease without esophagitis K21.9 Esophagitis presence: without esophagitis Hypercholesterolemia E78.00 Coronary artery disease involving [place] coronary artery of [place] heart without angina pectoris I25.10 Coronary Disease-Associated Artery/Lesion type: [place] artery [place] vs. transplanted heart: [place] heart Associated angina: without angina Primary hypertension I10 Hypertension type: primary hypertension Thrombocytopenia D69.6 MDS (myelodysplastic syndrome) D46.9 Additional Codes PHQ-9 - 37138 - PHQ-9 Billing: Yes ([id number])
--- OUTSIDE RECORDS SUMMARY | 2025-04-01 16:07 | XMS_ITS | Encounter Summary ---
Author Organization [facility] Address [address] [place] [address] Care Team Providers Care Order Planner Name Role Phone Tessa Warner TOOL CRIB MANAGER Primary Care Provider Encounter Details Date Type Department Care Team (Late st Contact Info) Description 04/19/2022 Lab Requisition [facility] Pathology & Laboratory Medicine - [address] [id number] [place] NP 111 [facility], [address] 2 [place] [address] Malignant neoplasm of prostate (HCC-CMS) Social History Tobacco Use Types Packs/Day Years Used Date Smoking Tobacco: Former Cigarettes 2 1983 Smokeless Tobacco: Never Alcohol Use Standard [...] place to sleep or slept in a detention (including now)? No 12/02/2021 Interpersonal Safety Answer Date Record ed How often does anyone, inclelian banda family, hit, punch or physically hurt [...] 11:49 EDT Sexual Orientation Not on file documented as of this encounter Functional Status * Are you deaf or do you have serious difficulty hearing? Answer Date of Assessment Author No 08/14/2021 15:00 EDT Lona Aguilar RN * Are you blind or do you have serious difficulty seeing, even when wearing glasses? Answer Date of Assessment Author No 08/14/2021 15:00 Lona Elder RN * Do you have serious difficulty walking or climbing stairs? (5 years old or older) Answer Date of Assessment Author No 08/14/2021 15:00 Lona Elder RN * Do you have difficulty dressing or bathing? (5 years old or older) Answer Date of Assessment Author No 08/14/2021 15:00 Lona Elder RN * Because of a physical, mental, or emotional condition, do you have difficulty doing errands alone such as visiting a doctor's office or shopping? (15 years old or older) Answer Date of Assessment Author No 08/14/2021 15:00 Lona Elder RN documented as of this encounter Mental Status * Because of a physical, mental, or emotional condition, do you have serious difficulty concentrating, remembering, or making decisions? (5 years old or older) Answer Entry Date Author No 08/14/2021 15:00 Lona Elder RN documented in this encounter Plan of Treatment Not on file documented as of this encounter Procedures Procedure Name Priority Date/Time Associated Diagnosis Comments SPEP, INCLUDES QUANTITATION OF MONOCLONAL SPIKE PERFORMABLE Today 04/19/2022 14:08 EST Malignant neoplasm of prostate (HCC-CMS) (HCC) SERUM FREE LIGHT CHAINS Routine 04/19/20 14:08 EST Malignant neoplasm of prostate (HCC-CMS) (HCC) ERYTHROPOIETIN Routine 04/19/2022 14:08 EST Malignant neoplasm of prostate (HCC-CMS) (HCC) IBC Routine 04/19/2022 14:08 EST Malignant neoplasm of prostate (HCC-CMS) (HCC) RETICULOCYTE COUNT Routine 04/19/2022 14 :08 EST Malignant neoplasm of prostate (HCC-CMS) (HCC) RHEUMATOID FACTOR Routine 04/19/2022 14: 08 EST Malignant neoplasm of prostate (HCC-CMS) (HCC) TSH Routine 04/19/2022 14:08 EST Malignant neoplasm of prostate (HCC-CMS) (HCC) SPEP, INCLUDES QUANTITATION OF MONOCLONAL SPIKE Routine 04/19/2022 14:08 EST Malignant neoplasm of prostate (HCC-CMS) (HCC) PROTEIN, TOTAL Today 04/19/2022 14:08 EST Malignant neoplasm of prostate (HCC-CMS) (HCC) IRON Routine 04/19/2022 14:08 EST Malignant neoplasm of prostate (HCC-CMS) (HCC) HAPTOGLOBIN Routine 04/19/2022 14:08 EST Malignant neoplasm of prostate (HCC-CMS) (HCC) FERRITIN Routine 04/19/2022 14:08 EST Malignant neoplasm of prostate (HCC-CMS) (HCC) VITAMIN B12 Routine 04/19/2022 14:08 EST Malignant neoplasm of prostate (HCC-CMS) (HCC) documented in this encounter Results * SPEP, INCLUDES QUANTITATION OF MONOCLONAL SPIKE PERFORMABLE (04/19/2022 14:08 EST) Albumin % 61.5 55.8 - 66.1 % 04/20/2022 14:30 [facility] Albumin g/dL 4.1 3.6 - 5.2 g/dL 04/20/2022 14:30 [facility] Alpha-1 % 4.6 2.9 - 4.9 % 04/20/2022 14:30 [facility] Alpha-1 g/dL 0.30 0.15 - 0.40 g/dL 04/20/2022 14:30 [facility] Alpha-2 % 10.5 7.1 - 11.8 % 04/20/2022 14:30 [facility] Alpha-2 g/dL 0.70 0.50 - 1.00 g/dL 04/20/2022 14:30 [facility] Beta % 11.9 8.4 - 13.1 % 04/20/2022 14:30 [facility] Beta g/dL 0.80 0.60 - 1.20 g/dL 04/20/2022 14:30 [facility] Gamma % 11.5 11.1 - 18.8 % 04/20/2022 14:30 [facility] Gamma g/dL 0.80 0.60 - 1.60 g/dL 04/20/2022 14:30 [facility] SPEP Comment No apparent monoclonal protein seen on serum electrophoresis 04/20/2022 14:30 [facility] Comment:See scanned/suppleme ntary report. Total Protein 7.0 6.3 - 8.2 g/dL 04/20/2022 14:30 [facility] Blood VENOUS BLOOD / Unknown 04/19/2022 14:08 EST 04/19/2022 20:29 EST [place] TOOL CRIB MANAGER CHEMISTRY & BLOOD GAS [facility] Final Result Performing Organization Address [facility] de Phone Number [facility] [address] [place] [address] * PROTEIN, TOTAL (04/19/2022 14:08 EST) Blood VENOUS BLOOD / Unknown 04/19/2022 14:08 EST 04/19/2022 20:29 EST [place] TOOL CRIB MANAGER CHEMISTRY & BLOOD GAS ORDE RABLES Final Result Performing Organization Address [facility] Co de Phone Number [facility] [address] [place] [address] * (ABNORMAL) RETICULOCYTE COUNT (04/19/2022 14:08 EST) Retic Ct (Uncorrected) 2.8(H) 0.5 - 2.5 % 04/19/2022 21:[address] [facility] Blood VENOUS BLOOD / Unknown 04/19/2022 14:08 EST 04/19/2022 20:30 EST [place] TOOL CRIB MANAGER HEMATOLOGY & PF4 ORDERABLE S Final Result Performing Organization Address City/[facility]/ZIP Co de Phone Number [facility] [address] [place] [address] * IBC (04/19/2022 14:08 EST) [facility] Iron Binding Capacity 360 240 - 450 g/dL 04/19/2022 21:[address] [facility] Blood VENOUS BLOOD / Unknown 04/19/2022 14:08 EST 04/19/2022 20:29 EST [place] TOOL CRIB MANAGER CHEMISTRY & BLOOD GAS ORDE RABLES Final Result Performing Organization Address [facility] de Phone Number [facility] [address] [place] [address] * (ABNORMAL) ERYTHROPOIETIN (04/19/2022 14:08 EST) [facility] Erythropoietin (EPO), S 22.3(H) 2.6 - 18.5 mIU/mL 04/21/2022 17:07 EST [facility] Comment: Test Performed by: [facility] [address] [place] [id number] Field Auditor: Ghulam Tay M.D. Ph.D.; CLIA# [id number] Blood VENOUS BLOOD / Unknown 04/19/2022 14:08 EST 04/19/2022 20:29 EST [place] NP CHEMISTRY & BLOOD GAS ORDE RABLES Final Result Performing Organization Address City/[facility]/ZIP Co de Phone Number [facility] [address] [place] [phone] * SERUM FREE LIGHT CHAINS (04/19/2022 14:08 EST) [facility] [place] Free Lt Chain 1.49 0.33 - 1.94 mg/dL 04/20/2022 9:[address] [facility] Lambda Free Lt Chain 1.71 0.57 - 2.63 mg/dL 04/20/2022 9:[address] [facility] [place]/Lambda Ratio 0.87 0.26 - 1.65 04/20/2022 9:[address] [facility] Blood VENOUS BLOOD / Unknown 04/19/2022 14:08 EST 04/19/2022 20:29 EST us Urmila E Pevear TOOL CRIB MANAGER CHEMISTRY & BLOOD GAS ORDE RABLES Final Result Performing Organization Address City/[facility]/ZIP Co de Phone Number [facility] [address] [place] [address] * (ABNORMAL) FERRITIN (04/19/2022 14:08 EST) Ferritin 527(H) 22 - 322 ng/mL 04/19/2022 22:[address] [facility] Blood VENOUS BLOOD / Unknown 04/19/2022 14:08 EST 04/19/2022 20:29 EST us Urmila E Rickyvear TOOL CRIB MANAGER CHEMISTRY & BLOOD GAS ORDE RABLES Final Result Performing Organization Address [facility] Co de Phone Number [facility] [address] [place] [address] * IRON (04/19/2022 14:08 EST) Iron 122 49 - 181 g/dL 04/19/2022 20:[address] [facility] Blood VENOUS BLOOD / Unknown 04/19/2022 14:08 EST 04/19/2022 20:29 EST us Urmila E Pevear TOOL CRIB MANAGER CHEMISTRY & BLOOD GAS ORDE RABLES Final Result Performing Organization Address [facility] Co de Phone Number [facility] [address] [place] [address] * HAPTOGLOBIN (04/19/2022 14:08 EST) Haptoglobin 120 32 - 197 mg/dL 04/20/2022 9:[address] [facility] Blood VENOUS BLOOD / Unknown 04/19/2022 14:08 EST 04/19/2022 20:29 EST us [place] TOOL CRIB MANAGER CHEMISTRY & BLOOD GAS ORDE RABLES Final Result Performing Organization Address [facility]/ZIP Co de Phone Number [facility] [address] [place] [address] * VITAMIN B12 (04/19/2022 14:08 EST) Vitamin B12 902 211 - 911 pg/mL 04/19/2022 22:[address] [facility] Blood VENOUS BLOOD / Unknown 04/19/2022 14:08 EST 04/19/2022 20:29 EST us [place] TOOL CRIB MANAGER CHEMISTRY & BLOOD GAS ORDE RABLES Final Result Performing Organization Address [facility] Co de Phone Number [facility] [address] [place] [address] * RHEUMATOID FACTOR (04/19/2022 14:08 EST) Rheumatoid Factor <8.6 <12.0 IU/mL 04/19/2022 21:[address] [facility] Blood VENOUS BLOOD / Unknown 04/19/2022 14:08 EST 04/19/2022 20:29 EST us [place] TOOL CRIB MANAGER CHEMISTRY & BLOOD GAS ORDE RABLES Final Result Performing Organization Address [facility] Co de Phone Number [facility] [address] [place] [address] * TSH (04/19/2022 14:08 EST) TSH 2.55 0.47 - 4.68 mIU/L 04/19/2022 21:[address] [facility] Blood VENOUS BLOOD / Unknown 04/19/2022 14:08 EST 04/19/2022 20:[address] [facility] - 04/19/2022 21:29 EST The results of this assay can be falsely lowered due to the consumption of Biotin. us [place] NP CHEMISTRY & BLOOD GAS JEAN MORA Final Result [facility] [address] [place] [address] documented in this encounter Visit Diagnoses Diagnosis Malignant neoplasm of prostate (HCC-CMS) Malignant neoplasm of prostate documented in this encounter Additional Health Concerns Infection Onset Date Last Indicated Resolved Time R/O COVID-19 09/29/2022 09/29/2022 09/29/2022 17:2 8 EDT documented as of this encounter Care Teams Order Planner Relationship Specialty Start Date End Date Tessa Warner, TOOL CRIB MANAGER [address] [place] [phone] PCP - General Family Medicine - Primary Care 11/10/21 documented as of this encounter
--- OUTSIDE RECORDS SUMMARY | 2025-04-01 16:07 | XMS_ITS | Patient Health Record ---
Author Organization [facility] Billing Info Address [address] [place] [address] [place] [address] Care Team Providers Care Puppet Master Name Role Phone DR MAMI BROWN Primary Care Provider UnavailERICA Odonnell Unavailable [phone] Lyla Daily Unavailable Unavailable Allergies Allergen (clinical drug ingredient) Drug/Non Drug Allergy documented on EMR Reaction Allergy Type Onset Date Status Penicillin Unknown Drug Allergy Active Reason For Referral No Information Medications Medication SIG (Take, Route, Frequency, Duration) Notes Start Date End Date Status Calcium + D Active Metoprolol Tartrate 25 MG 1 tablet with food Orally Twice a day Active Atorvastatin Calcium 40 MG 1 tablet Oral ly Once a day Active Fish Oil Active Multi For Him - Orally Acti ve Vitamin B12 Active Tylenol with Codeine #3 300- 30 MG 1 tablet as needed Orally every 6 hrs Active Nitrostat 0.4 MG Sublingual Ac tive Citalopram Hydrobromide 20 MG 1 tablet O rally Once a day Active Cartia XT 120 MG 1 capsule Orally Onc e a day Active Lisinopril 10 MG 1 tablet Orally Once a day Active Centrum Active MethylPREDNISolone 4 MG 1 tablet with fo od or milk in the morning Orally Active Vitamin D2 Active Ibuprofen 800 MG 1 tablet with food o r milk Orally Three times a day Active Aspirin Adult Low Dose Active Suprep Bowel Prep Kit 17.5-3.13-1.6 GM/177ML 354 ml ( 2 bottles) Orally day prior to colonoscopy, one bottle at 4pm and one bottle at 8pm mix as directed for 1 days 05/22/2019 Active Clopidogrel Bisulfate 75 MG 1 tablet Ora lly Once a day Active Citracal + D Active Diltiazem HCl ER 180 MG 1 capsule Orally Twice a day Active Fenofibrate Micronized 67 MG 1 capsule w ith a meal Orally Once a day Active Combivent Respimat 20-100 MCG/ACT 1 puff Inhalation Four times a day Active Prilosec Active Diltiazem HCl ER 120 MG 1 capsule Orally Twice a day Active Immunizations Vaccine Route Administration Date Status Comme nts PNEUMOCOCCAL - 23 POLY (PNEU MOVAX 23) Unknown 02/08/2016 Administered FLU (Past vaccine of unknown type) Unknown 02/08/2016 A dministered zFLU 3V (FLUAD), 65 YRS+, NO PRES - ALL PAYORS Unknown 04/05/2019 Administered Social History Tobacco Status: Question Answer Notes Patient is a non tobacco user Problems Problem Type SNOMED Code ICD Code Onset Dates Problem Status W/U Status Risk Notes Problem 967477025 Change in bowel habits (R19.4) Active confirmed Problem 748485170 History of abdominal pain (Z87.898) Active confirmed Problem 56761768 Unilateral inguinal hernia without obstruction or gangrene, recurrence not specified (K40.90) Active confirmed Problem 28975273 Non-recurrent unilateral inguinal hernia without obstruction or gangrene (K40.90) Active confirmed Plan Of Treatment No Information Insurance Providers Payer Name Payer Address Payer Phone Subscriber Number Group Number Insured Name Patient Relationship to Insured Coverage Start Date Coverage End Date [place]ARE [place] PART B [address] [place], [place] [id number] Ascencion Perez Self - patient is the insured 7 9 [employer] MEDICARE SUPP [address] ATTN CLAIMS MAU MALONE [id number] Asecncion Perez Self - patient is the insured 7 7 Medical (General) History Medical History History ICD Code Hyperlipidemia Coronary arteriosclerosis BPH Rosacea Surgical History Surgery Date(Month/Year) Pacemaker 2010 Shoulder sx Knee sx Foot sx Back sx x3 Neck sx Carotid endarterectomy
--- OUTSIDE RECORDS SUMMARY | 2025-04-01 16:08 | XMS_ITS | Encounter Summary ---
Author Organization [facility] Address [address] [place] [address] Care Team Providers Care Hot Plate Plywood Press Operator Name Role Phone Tessa Warner ENTRY LEVEL ADMINISTRATIVE ASSISTANT Primary Care Provider [phone] Encounter Details Date Type Department Care Team (Late st Contact Info) Description 06/28/2022 Lab Requisition [facility] [address] [place] [address] Terry Conti MD 111 [facility] [address] [place] [address] Malignant neoplasm of prostate (HCC-[facility]) Social History Tobacco Use Types Packs/Day Years [...] place to sleep or slept in a usp (including now)? No 12/02/2021 Interpersonal Safety Answer [...] of a physical, mental, or emotional condition, does this person have difficulty doing errands alone such as visiting a doctor's office or shopping? Answer Date of Assessment Author No 04/28/2022 9:36 Florin Saxena RN documented as of this encounter Mental Status * Because of a physical, mental, or emotional condition, does this person have serious difficulty concentrating, remembering, or making decisions? Answer Entry Date Author No 04/28/2022 9:36 Florin Saxena RN documented in this encounter Plan of Treatment Not on file documented as of this encounter Procedures Procedure Name Priority Date/Time Associated Diagnosis Comments TYPE AND SCREEN Today 06/28/2022 15:40 EST Malignant neoplasm of prostate (HCC-CMS) (HCC) documented in this encounter Results * TYPE AND SCREEN (06/28/2022 15:40 EST) ABO O 06/28/2022 16:42 [facility] Rh Factor Positive 06/28/2022 16:42 EST [facility] Antibody Screen Negative 06/28/2022 16:42 [facility] Specimen Expires: 07/01/2022 @ 23:59 06/28/2022 16:42 [facility] Blood VENOUS BLOOD / Unknown 06/28/2022 15:40 EST 06/28/2022 15:56 EST Terry Conti MD BLOOD BANK TESTS Edited Result - Final [facility] [address] [place] [address] documented in this encounter Visit Diagnoses Diagnosis Malignant neoplasm of prostate (HCC-CMS) Malignant neoplasm of prostate documented in this encounter Additional Health Concerns Infection Onset Date Last Indicated Resolved Time R/O COVID-19 09/29/2022 09/29/2022 09/29/2022 17:2 8 EDT documented as of this encounter Care Teams Hot Plate Plywood Press Operator Relationship Specialty Start Date End Date Tessa Warner NP [address] [place] [phone] PCP - General Family Medicine - Primary Care 11/10/21 documented as of this encounter
--- OUTSIDE RECORDS SUMMARY | 2025-04-01 16:08 | XMS_ITS | Encounter Summary ---
Author Organization [facility] Address [address] [place] [address] Care Team Providers Care Broke Beater Machine Operator Name Role Phone Tessa Warner BUNCH MAKER Primary Care Provider [phone] Reason for Visit * Reason Onset Date Comments Coordination Of Care 02/22/2022 Encounter Details Date Type Department Care Team (Late st Contact Info) Description 02/22/2022 Telephone [facility] Primary Care - [place] [address] [place] [address] Tessa Warner, BUNCH MAKER [address] [place] [address] Coordination Of Care Social History Tobacco Use Types Packs/Day Years [...] place to sleep or slept in a [place] (including now)? No 12/02/2021 Interpersonal Safety Answer Date Record ed How often does anyone, inclu veronika family, hit, punch or physically hurt you? [...] was confirmed or suspected to have Coronavirus/COVID-19? No / Unsure 02/22/2022 10:26 EDT documented as of this encounter Functional Status * Are you deaf or do you have serious difficulty hearing? Answer Date of Assessment Author No 08/14/2021 15:00 EDLona Mendoza RN * Are you blind or do you have serious difficulty seeing, even when wearing glasses? Answer Date of Assessment Author No 08/14/2021 15:00 Lona Elder RN * Do you have serious difficulty walking or climbing stairs? (5 years old or older) Answer Date of Assessment Author No 08/14/2021 15:00 EDLona Mendoza RN * Do you have difficulty dressing or bathing? (5 years old or older) Answer Date of Assessment Author No 08/14/2021 15:00 EDLona Mendoza RN * Because of a physical, mental, [...] Lona Elder RN documented in this encounter Miscellaneous Notes * Telephone Encounter - Lynnette Paulino - 02/22/2022 1304 EDT Red May calling from [facility] about pt. Looking for a call back [phone] documented in this encounter Plan of Treatment Not on file documented as of this encounter Visit Diagnoses Not on filedocumented in this encounter Additional Health Concerns Infection Onset Date Last Indicated Resolved Time R/O COVID-19 09/29/2022 09/29/2022 09/29/2022 17:2 8 EDT documented as of this encounter Care Teams Broke Beater Machine Operator Relationship Specialty Start Date End Date Tessa Warner, KRISTA [address] [place] [address] PCP - General Family Medicine - Primary Care 11/10/21 documented as of this encounter
--- OUTSIDE RECORDS SUMMARY | 2025-04-01 16:08 | XMS_ITS | Encounter Summary ---
Author Organization [facility] Address [address] [place] [address] Care Team Providers Care Hook Up Name Role Phone Tessa Warner INFORMATICA MDM DEVELOPER Primary Care Provider [phone] Encounter Details Date Type Department Care Team (Late st Contact Info) Description 12/15/2021 Lab Requisition [facility] Pathology & Laboratory Medicine - [address] [address] Terry Conti MD 111 [facility], [address] [place] [address] Malignant neoplasm of prostate (HCC-CMS); Secondary malignant neoplasm of bone (HCC-CMS) Social History Tobacco Use Types Packs/Day [...] place to sleep or slept in a intermediate (including now)? No 12/02/2021 Interpersonal Safety Answer [...] Assessment Author No 08/14/2021 15:00 EDT Lona AguilarMALATHI * Are you blind or do you [...] Entry Date Author No 08/14/2021 15:00 Lona lEder RN documented in this encounter Plan of Treatment Not on file documented as of this encounter Procedures Procedure Name Priority Date/Time Associated Diagnosis Comments PSA TOTAL, DIAGNOSTIC Routine 12/14/2021 16:21 EDT Malignant neoplasm of prostate (HCC-CMS) (HCC) Secondary malignant neoplasm of bone (HCC-CMS) (HCC) documented in this encounter Results * PSA TOTAL, DIAGNOSTIC (12/14/2021 16:21 EDT) PSA <0.1 <=6.5 ng/mL 12/15/2021 15:24 EDT [facility] Blood VENOUS BLOOD / Unknown 12/14/2021 16:21 EDT 12/15/2021 14:28 EDT Narrative [facility] - 12/15/2021 15:24 EDT NOTE: Serum PSA concentration should not be interpreted as absolute evidence for the presence or absence of malignant disease. Assayed on Siemens FClubaur XPT using chemiluminescent technology. Values obtained by using different assay methods cannot be used interchangeably. 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
--- OUTSIDE RECORDS SUMMARY | 2025-04-01 16:08 | XMS_ITS | Encounter Summary ---
Author Organization [facility] Address [address] [place] [address] Care Team Providers Care Management Expert Name Role Phone Unknown, Provider Primary Care Provider Unava ilable Unknown, Provider Primary Care Provider Unava ilable Tessa Warner WATER SUPPLY ENGINEER Primary Care Provider [phone] Reason for Visit * Reason Onset Date Comments COVID-19 01/18/2020 Encounter Details Date Type Department Care Team (Late st Contact Info) Description 01/18/2020 Telephone [facility] [address] [place] [address] Juan Johnson MD [address] [place] [phone] COVID-19 Social History Tobacco Use Types Packs/Day Years Used Date Smoking Tobacco: Never Smokeless Tobacco: Never Alcohol Use Standard Drinks/Week Comments Never 0 (1 standard drink = 0.6 oz pur e alcohol) AUDIT-C Answer Date Recorded Q1: How often do you have a drink containing alc ohol? Never 01/15/2020 Average Number of Drinks Not on file 020 Frequency of Binge Drinking Not on file 12/20 PHQ-2 Answer Date Recorded PHQ-2 Score 0 01/15/2020 Interpersonal Safety Answer Date Record ed Physically Hurt Never 12/21/2019 Verbally Threaten Not on file 12/21/2019 Sex and Gender Information Value Date Recorded Sex Assigned at Not on file Legal Sex Male 17:53 EST Gender Identity Male 11/11/2019 11:49 EDT Sexual Orientation Not on file COVID-19 Exposure Response Date Recorded In the last month, have you been in contact with someone who was confirmed or suspected to have Coronavirus / COVID-19? No / Unsure 12/31/2019 8:22 EDT documented as of this encounter Functional Status documented as of this encounter Miscellaneous Notes * Telephone Encounter - Margaret Marshall - 01/18/2020 1542 EDT Called patient to schedule COVID-19 testing. Requested a call back @[phone]. This is our 1st attempt at contacting patient documented in this encounter Plan of Treatment Not on file documented as of this encounter Visit Diagnoses Not on filedocumented in this encounter Additional Health Concerns Infection Onset Date Last Indicated Resolved Time R/O COVID-19 Comment:negative 08/14/2021 08/14/2021 08/15/2021 9:49 EDT R/O COVID-19 09/29/2022 09/29/2022 09/29/2022 17:2 8 EDT documented as of this encounter Care Teams Management Expert Relationship Specialty Start Date End Date Unknown, Provider, PCP - General 11/10/08 08/11/21 Unknown, Provider, PCP - General 11/09/21 11/09/21 Tessa Warner, WATER SUPPLY ENGINEER [address] [place] [phone] PCP - General Family Medicine - Primary Care 11/10/21 documented as of this encounter
--- OUTSIDE RECORDS SUMMARY | 2025-04-01 16:08 | XMS_ITS | Encounter Summary ---
Author Organization [facility] Address [address] [place] [address] Care Team Providers Care Veneer Stock Grader Name Role Phone Unknown, Provider Primary Care Provider Unava ilable Unknown, Provider Primary Care Provider Unava ilable Tessa Warner LIBRARY TECHNICAL ASSISTANT Primary Care Provider [phone] Encounter Details Date Type Department Care Team (Late st Contact Info) Description 01/26/2020 Lab Requisition [facility] Pathology & Laboratory Medicine - [address] [address] Outr Resulting Lab, Provider Social History Tobacco Use Types Packs/Day Years Used Date Smoking Tobacco: Former Cigarettes 2 24 1 96 - 1983 Smokeless Tobacco: Never Alcohol Use Standard Drinks/Week Comments Yes 7 (1 standard drink = 0.6 oz pur e alcohol) AUDIT-C Answer Date Recorded Q1: How often do you have a drink containing alc ohol? Never 01/30/2020 Average Number of Drinks Not on file 020 Frequency of Binge Drinking Not on file 01/19 PHQ-2 Answer Date Recorded PHQ-2 SUBTOTAL 0 01/30/2020 Interpersonal Safety Answer Date Record ed Physically [...] 8:22 EDT documented as of this encounter Plan of Treatment Not on file documented as of this encounter Procedures Procedure Name Priority Date/Time Associated Diagnosis Comments DO NOT ORDER STANDALONE - BROAD COVID TEST Today 01/26/2020 12:45 EDT COVID-19 TESTING Routine 01/26/2020 12:4 5 EDT documented in this encounter Results * DO NOT ORDER STANDALONE - BROAD COVID TEST (01/26/2020 12:45 EDT) COVID-19 rt-PCR Result NEGATIVE Negative 01/28/2020 16:36 EDT [facility] Comment: 2019-novel Coronavirus (2019-nCoV) not detected by the qRT-PCR assay. Consider testing for other respiratory viruses or re-collecting for 2019-nCoV testing. Note: Optimum timing for peak viral levels during infections caused by 2019-nCoV have not been determined. Collection of multiple specimens from the same patient may be necessary to detect the virus. Limitations Positive results are indicative of active infection with SARS-CoV-2 but do not rule out bacterial infection or co-infection with other viruses. The agent detected may not be the definite cause of disease. In addition, detection of viral RNA may not indicate the presence of infectious virus or that SARS-CoV-2 is the causative agent for clinical symptoms. Negative results do not preclude SARS-CoV-2 infection and should not be used as the sole basis for patient management decisions. Negative results must be combined with clinical observations, patient history, and epidemiological information. False negative results may also occur if amplification inhibitors are present in the specimen or if inadequate numbers of organisms are present in the specimen. Optimum specimen types and timing for peak viral levels during infections caused by SARS-CoV-2 have not been fully determined. Collection of multiple specimens (types and time points) from the same patient may be necessary to detect the virus. The test was validated for use with upper respiratory specimens obtained via nasopharyngeal or oropharyngeal swabs in VTM, UTM, M4, M5, M6, saline, and MTM media. The performance of this test has not been established for other specimens. Specimens collected using other FDA recommended Specimen Collection Materials listed in the FDA COVID-19 [employer] communication (August 14, 2019) are processed with the caveat that they were not all validated for use with this test and the result must be interpreted in this context. Furthermore, a false negative results may occur if a specimen is improperly collected, transported or handled. If the virus mutates in the RT-PCR target region, SARS-CoV-2 may not be detected or may be detected less predictably. Inhibitors or other types of interference may produce a false negative result. An interference study evaluating the effect of common cold medications was not performed. This test is not FDA-cleared but its performance characteristics were established by our CLIA-certified, CAP-accredited, high complexity laboratory in accordance with CLIA regulations, College of [place] [employer]ologists (CAP) guidelines (Aug 07, 2019), and FDA guidance (Jul 19, 2019). This test is only for use under the Food and Drug Administration's Emergency Use Authorization. Swab ENTIRE NASOPHARYNX / Unknown 01/26/2020 12:45 EDT 01/26/2020 20:47 EDT us Provider Outr Resulting Lab MICROBIOLOGY - GENER AL ORDERABLES Final Result [facility] [place], [place] * COVID-19 TESTING (01/26/2020 12:45 EDT) COVID-19 rt-PCR Result NEGATIVE Negative 01/28/2020 17:47 EDT [facility] Comment: 2019-novel Coronavirus (2019-nCoV) not detected by the qRT-PCR assay. Consider testing for other respiratory viruses or re-collecting for 2019-nCoV testing. Note: Optimum timing for peak viral levels during infections caused by 2019-nCoV have not been determined. Collection of multiple specimens from the same patient may be necessary to detect the virus. Limitations Positive results are indicative of active infection with SARS-CoV-2 but do not rule out bacterial infection or co-infection with other viruses. The agent detected may not be the definite cause of disease. In addition, detection of viral RNA may not indicate the presence of infectious virus or that SARS-CoV-2 is the causative agent for clinical symptoms. Negative results do not preclude SARS-CoV-2 infection and should not be used as the sole basis for patient management decisions. Negative results must be combined with clinical observations, patient history, and epidemiological information. False negative results may also occur if amplification inhibitors are present in the specimen or if inadequate numbers of organisms are present in the specimen. Optimum specimen types and timing for peak viral levels during infections caused by SARS-CoV-2 have not been fully determined. Collection of multiple specimens (types and time points) from the same patient may be necessary to detect the virus. The test was validated for use with upper respiratory specimens obtained via nasopharyngeal or oropharyngeal swabs in VTM, UTM, M4, M5, M6, saline, and MTM media. The performance of this test has not been established for other specimens. Specimens collected using other FDA recommended Specimen Collection Materials listed in the FDA COVID-19 [employer] communication (August 14, 2019) are processed with the caveat that they were not all validated for use with this test and the result must be interpreted in this context. Furthermore, a false negative results may occur if a specimen is improperly collected, transported or handled. If the virus mutates in the RT-PCR target region, SARS-CoV-2 may not be detected or may be detected less predictably. Inhibitors or other types of interference may produce a false negative result. An interference study evaluating the effect of common cold medications was not performed. This test is not FDA-cleared but its performance characteristics were established by our CLIA-certified, CAP-accredited, high complexity laboratory in accordance with CLIA regulations, College of [place] Pathologists (CAP) guidelines (Aug 07, 2019), and FDA guidance (Jul 19, 2019). This test is only for use under the Food and Drug Administration's Emergency Use Authorization. Performing Lab [facility] 01/28/2020 17:47 EDT [facility] Swab 01/26/2020 12:4 5 EDT 01/26/2020 20:47 EDT us Provider Outr Resulting Lab MICROBIOLOGY - GENER AL ORDERABLES Final Result [facility] [address] [place] [address] [facility] [place] documented in this encounter Visit Diagnoses Not on filedocumented in this encounter Additional Health Concerns Infection Onset Date Last Indicated Resolved Time R/O COVID-19 Comment:negative 08/14/2021 08/14/2021 08/15/2021 9:49 EDT R/O COVID-19 09/29/2022 09/29/2022 09/29/2022 17:2 8 EDT documented as of this encounter Care Teams Veneer Stock Grader Relationship Specialty Start Date End Date Unknown, Provider, PCP - General 11/10/08 08/11/21 Unknown, Provider, PCP - General 11/09/21 11/09/21 Tessa Warner, LIBRARY TECHNICAL ASSISTANT [address] [place] [phone] PCP - General Family Medicine - Primary Care 11/10/21 documented as of this encounter
--- OUTSIDE RECORDS SUMMARY | 2025-04-01 16:08 | XMS_ITS | Patient Health Record ---
Author Organization [facility] Address [address] [place] [address] Care Team Providers Care Director Of Cardiopulmonary Services Name Role Phone ERICH SILVA Primary Care Provider FIOR Ramires Unavailable [phone] Allergies Allergen (clinical drug ingredient) Drug/Non Drug Allergy documented on EMR Reaction Allergy Type Onset Date Status penicillin (uncoded) Unknown Allergy Active Reason For Referral No Information Medications Medication SIG (Take, Route, Frequency, Duration) Notes Start Date End Date Status Bicalutamide 50 MG 1 tablet Orally Once a day Active Primidone 250 MG 1 tablet Orally once a day Active Viagra 100 MG 1 tablet as needed O rally Once a day; Duration: 30 days Active Plavix 75 MG 1 tablet Orally Once a day; Duration: 90 Active Lasix 20 MG 1 tablet Orally Once a day; Duration: 90 days Active Atorvastatin Calcium 40 MG 1 tablet Oral ly Once a day; Duration: 30 day(s) Active Fenofibrate 67 MG 1 capsule with a viky l Orally Once a day; Duration: 30 day(s) Active Metoprolol Succinate ER 25 MG TAKE 1 TABLET BY MOUTH EVERY DAY; Duration: 90 Active PriLOSEC OTC 20 MG 1 tablet Orally Once a day; Duration: 30 day(s) Active Aspirin Adult Low Dose 81 MG 1 tablet Orally Once a day; Duration: 30 day(s) Active Fish Oil 1000 MG 1 capsule Orally Onc e a day; Duration: 30 day(s) Active Multi For Him - Orally Acti ve Vitamin D3 1000 UNIT 1 capsule Orally On ce a day; Duration: 30 day(s) Active Vitamin B12 100 MCG Orally Active amLODIPine Besylate 2.5 MG 1 tablet Oral ly twice a day; Duration: 90 days Active Social History Tobacco Use: Social History Observation Description Date Details (start date - stop date) Former Smoker NA - NA Tobacco Use/Smoking Question Answer Notes Are you a former smoker How long has it been since you last smoked? > 10 years Problems Problem Type SNOMED Code ICD Code Onset Dates Problem Status W/U Status Risk Notes Problem Coronary artery disease (80356894) CAD (coronary artery disease) (I25.10) Active confirmed Problem Dyslipidemia (765951517) Dyslipidemia (E78.5) Active confirmed Problem Hypertension (99896774) HTN (hypertension) (I10) Active confirmed Problem Depression (727342860) Depression (F32.9) Active confirmed Problem Cardiac pacemaker in situ (282671184) Pacemaker (Z95.0) Active confirmed Problem Hyperlipidaemia (39594130) Hyperlipidemia, unspecified hyperlipidemia type (E78.5) Active confirmed Problem Nonsustained ventricular tachycardia (disorder) (284418789) NSVT (nonsustained ventricular tachycardia) (I47.2) Active confirmed Problem Essential hypertension (84887013) Essential hypertension (I10) Active confirmed Plan Of Treatment No Information Insurance Providers Payer Name Payer Address Payer Phone Subscriber Number Group Number Insured Name Patient Relationship to Insured Coverage Start Date Coverage End Date Medicare of [place] / [facility] [address] [address] [place] [address] [id number] GRANTSALONI LILIA Self - patient is the insured [employer] [address] [place] [phone] [id number] LILIA BENTLEY Self - patient is the insured Medical (General) History Medical History History ICD Code hypertension osteoarthritis seasonal allergies hyperlipidemia depression iron deficiency anemia coronary artery disease/stents x2 pacemaker Surgical History Surgery Date(Month/Year) back surgery x 3 left knee replacement right knee replacement shoulder arthroscopy/bilateral TURP inguinal hernia repair Hospitalization History Reason Date(Month/Year)
--- OUTSIDE RECORDS SUMMARY | 2025-04-01 16:08 | XMS_ITS | Encounter Summary ---
Author Organization [facility] Address [address] [place] [address] Care Team Providers Care Clinical Research Physician Name Role Phone Tessa Warner LUMBER HACKER Primary Care Provider [phone] Reason for Visit * Reason Comments Medications Refill Encounter Details Date Type Department Care Team (Late st Contact Info) Description 08/09/2022 Refill [facility] [address] [place] [address] Tessa Warner, LUMBER HACKER [address] [place] [address] Medications Refill Social History Tobacco Use Types Packs/Day Years [...] Weekly 12/02/2021 Overall Financial Resource Strain (CARDIA) Hectore r Date Recorded How hard is it [...] EDLona Mendoza RN * Do you have serious difficulty [...] Florin Saxena RN documented in this encounter Ordered Prescriptions Prescription Sig Dispense Quantity Refills Last Filled Start Date End Date metoprolol TARtrate (LOPRESSOR) 50 mg tablet TAKE 1 TABLET BY MOUTH TWICE DAILY 180 Tablet 1 08/09/2022 documented in this encounter Plan of Treatment Not on file documented as of this encounter Visit Diagnoses Not on filedocumented in this encounter Discontinued Medications Medication Sig Discontinue Reason Start Date End Da te metoprolol TARtrate (LOPRESSOR) 50 mg tablet TAKE 1 TABLET BY MOUTH TWICE DAILY 02/24/2022 08/09/2022 documented as of this encounter Additional Health Concerns Infection Onset Date Last Indicated Resolved Time R/O COVID-19 09/29/2022 09/29/2022 09/29/2022 17:2 8 EDT documented as of this encounter Care Teams Clinical Research Physician Relationship Specialty Start Date End Date Tessa Warner NP [address] [place] [phone] PCP - General Family Medicine - Primary Care 11/10/21 documented as of this encounter
--- OUTSIDE RECORDS SUMMARY | 2025-04-01 16:08 | XMS_ITS | Patient Health Record ---
Author Organization [facility] Address [address] [facility] [address] [place] [address] Care Team Providers Care Element Burner Name Role Phone ANDRES ABDULLAHI MD Primary Care Provider Unavail able [facility] NUR Unavailable [phone] Allergies Allergen (clinical drug ingredient) Drug/Non Drug Allergy documented on EMR Reaction Allergy Type Onset Date Status penicillin (uncoded) Unknown Allergy Active Reason For Referral No Information Medications Medication SIG (Take, Route, Frequency, Duration) Notes Start Date End Date Status Metoprolol Succinate 12.5 MG 1 tablet Or ally Once a day; Duration: 30 day(s) Active PriLOSEC 20 MG 1 capsule Orally Onc e a day; Duration: 30 day(s) Active Fenofibrate 67 MG 1 tablet with a meal Orally Once a day; Duration: 30 day(s) Active Digoxin 0.25 MG 1 tablet Orally Once a day; Duration: 30 day(s) Active Clopidogrel Bisulfate 75 MG 1 tablet Ora lly Once a day; Duration: 30 day(s) Active Tamsulosin HCl 0.4 MG 1 capsule 30 minut es after the same meal each day Orally Once a day; Duration: 30 day(s) Active Citalopram Hydrobromide 20 MG 1 tablet O rally Once a day; Duration: 30 day(s) Active Atorvastatin Calcium 40 MG 1 tablet Oral ly Once a day; Duration: 30 day(s) Active Fludrocortisone Acetate 0.1 MG 1 tablet Orally Twice a day; Duration: 30 day(s) Active Multivitamins as directed Orally O nce a day Active Aspir-81 81 MG 1 tablet Orally Once a day; Duration: 30 day(s) Active vitamin B 12 1000 MCG 6000 MCG p.o. Once a day Active Calcium 600 MG 1 tablet with meals Orally Twice a day; Duration: 30 day(s) Active Problems Problem Type SNOMED Code ICD Code Onset Dates Problem Status W/U Status Risk Notes Problem Trigeminal neuralgia (00885727) Trigeminal neuralgia (350.1) Active confirmed Problem Benign essential hypertension (1710530) Essential hypertension, benign (401.1) Active confirmed Problem Chronic ischemic heart disease (903370728) Unspecified chronic ischemic heart disease (414.9) Active confirmed Problem Carotid artery occlusion without infarction (786681664410041 ) Occlusion and stenosis of carotid artery without mention of cerebral infarction (433.10) Active confirmed Problem Orthostatic hypotension (01660333) Orthostatic hypotension (458.0) Active confirmed Problem Spinal stenosis of lumbar region (76328637) Spinal stenosis of lumbar region (724.02) Active confirmed Problem Dizziness and giddiness (975545046) Dizziness and giddiness (780.4) Active confirmed Problem Memory loss (00909195) Memory loss (780.93) Active confirmed Problem Cardiac pacemaker in situ (322778176) Cardiac pacemaker in situ (V45.01) Active confirmed Problem Headache (52135013) Headache (784.0) Active confirmed Plan Of Treatment No Information Insurance Providers Payer Name Payer Address Payer Phone Subscriber Number Group Number Insured Name Patient Relationship to Insured Coverage Start Date Coverage End Date MEDICARE [address] [place] [phone] [id number] LILIA BENTLEY Self - patient is the insured [employer] [address] [place] [phone] [id number] PLAN LILIA BENTLEY Self - patient is the insured Medical (General) History Medical History History ICD Code hypertension coronary artery disease with carotid artery stenosis osteoarthritis Surgical History Surgery Date(Month/Year) appendectomy tonsillectomy cervical laminectomy lumbar laminectomy with fusion twice TKR pacemaker
--- OUTSIDE RECORDS SUMMARY | 2025-04-01 16:08 | XMS_ITS | Encounter Summary ---
Author Organization [facility] Address [address] [place] [address] Care Team Providers Care Document Management Analyst Name Role Phone Tessa Warner PETROLEUM GEOLOGIST Primary Care Provider [phone] Encounter Details Date Type Department Care Team (Late st Contact Info) Description 02/23/2022 Lab Requisition [facility] Pathology & Laboratory Medicine - [address] [address] Terry Conti MD [address] [facility] [place] [address] Malignant neoplasm of prostate (HCC-CMS) [...] place to sleep or slept in a senior living (including now)? No 12/02/2021 Interpersonal Safety Answer [...] No 08/14/2021 15:00 Lona Elder RN * Are you blind or do [...] Procedure Name Priority Date/Time Associated Diagnosis Comments TSH Routine 02/22/2022 15:05 EDT Malignant neoplasm of prostate ([facility]) (HCC) documented in this encounter Results * TSH (02/22/2022 15:05 EDT) TSH 2.28 0.47 - 4.68 mIU/L 02/23/2022 15:18 EDT [facility] Blood VENOUS BLOOD / Unknown 02/22/2022 15:05 EDT 02/23/2022 14:23 EDT Narrative [facility] - 02/23/2022 15:18 EDT The results of this assay can be falsely lowered due to the consumption of Biotin. Terry Conti MD CHEMISTRY & BLOOD GAS ORDERABLES Final Result [facility] [address] [place] [address] documented in this encounter Visit Diagnoses Diagnosis Malignant neoplasm of prostate (HCC-CMS) Malignant neoplasm of prostate documented in this encounter Additional Health Concerns Infection Onset Date Last Indicated Resolved Time R/O COVID-19 09/29/2022 09/29/2022 09/29/2022 17:2 8 EDT documented as of this encounter Care Teams Document Management Analyst Relationship Specialty Start Date End Date Tessa Warner NP [address] [place] [phone] PCP - General Family Medicine - Primary Care 11/10/21 documented as of this encounter
--- OUTSIDE RECORDS SUMMARY | 2025-04-01 16:08 | XMS_ITS | Encounter Summary ---
Author Organization [facility] Address [address] [place] [address] Care Team Providers Care Information Systems Security Specialist Name Role Phone Tessa Warner COAT PADDER Primary Care Provider [phone] Reason for Visit * Reason Onset Date Comments Medications Refill 12/07/2022 Encounter Details Date Type Department Care Team (Late st Contact Info) Description 12/07/2022 Telephone [facility] [address] [place] [address] None, Provider, COAT PADDER Medications Refill Social History Tobacco Use Types [...] place to sleep or slept in a fdc (including now)? No 12/02/2021 Interpersonal Safety Answer Date Record ed How often does anyone, inclu veronika family, hit, punch or physically hurt you? Never 12/02/2021 How often does anyone, inclu veronika family, insult, scream, curse or threaten to [...] hearing? Answer Date of Assessment Author No 10/01/2022 20:53 Joshua Pastor RN * Are you blind or do you have serious difficulty seeing, even when wearing glasses? Answer Date of Assessment Author No 10/01/2022 20:53 Joshua Pastor RN * Do you have serious difficulty walking or climbing stairs? (5 years old or older) Answer Date of Assessment Author No 10/01/2022 20:53 EDT Joshua Pimentel RN * Do you have difficulty dressing or bathing? (5 years old or older) Answer Date of Assessment Author No 10/01/2022 20:53 EDT Joshua Pimentel RN * Because of a physical, mental, or emotional condition, do you have difficulty doing errands alone such as visiting a doctor's office or shopping? (15 years old or older) Answer Date of Assessment Author No 10/01/2022 20:53 EDT Joshua Pimentel RN documented as of this encounter Mental Status * Because of a physical, mental, or emotional condition, do you have serious difficulty concentrating, remembering, or making decisions? (5 years old or older) Answer Entry Date Author No 10/01/2022 20:53 EDT Joshua Pimentel RN documented in this encounter Miscellaneous Notes * Telephone Encounter - Candice Rodriguez RN - 12/07/2022 1526 EDT Pt tells me he is not taking plavix per [facility] dc instructions. He is being followed by hematology at [facility], reporting his platelets are still low and remains off clopidigrel. Will sned recent BW results to office. Returned call from Erika at [facility] explaining above. * Telephone Encounter - Jennifer Locke - 12/07/2022 6049 EDT Erika from [employer] in [facility]. Called requesting a refill of the patients Clopidigral sent to them. If you have any questions call Erika at [phone] documented in this encounter Plan of Treatment Not on file documented as of this encounter Visit Diagnoses Not on filedocumented in this encounter Care Teams Information Systems Security Specialist Relationship Specialty Start Date End Date Tessa Warner, KRISTA [address] [place] [phone] PCP - General Family Medicine - Primary Care 11/10/21 documented as of this encounter
--- OUTSIDE RECORDS SUMMARY | 2025-04-01 16:09 | XMS_ITS | Patient Health Record ---
Author Organization [facility] Address [address] [place] [address] Care Team Providers Care Recovery Advocate Name Role Phone Lorenzo Samson M.D. Unavailable Unavailable Reason For Referral No Information Medications Medication SIG (Take, Route, Frequency, Duration) Notes Start Date End Date Status DIGITEK TAB 0.125MG ; Duration: -1 Unknown 05/21/1909 Active CLOPIDOGREL TAB 75MG ; Duration: -1 Unknown 05/21/1909 Active PRIMIDONE TAB 250MG ; Duration: -1 Unknown 05/21/1909 Active DILTIAZEM CAP 180MG ER ; Duration: -1 Unknown 05/21/1909 Active FENOFIBRATE CAP 67MG ; Duration: -1 Unknown 05/21/1909 Active Plavix 300 mg tablet oral; Duration: 0 Unknown Take 1 oral 05/21/1909 Active LINZESS CAP 145MCG ; Duration: -1 Unknown 05/21/1909 Active SERTRALINE TAB 50MG ; Duration: -1 Unknown 05/21/1909 Active ATORVASTATIN TAB 40MG ; Duration: -1 Unknown 05/21/1909 Active METOPROL SUC TAB 25MG ER ; Duration: -1 Unknown 05/21/1909 Active Social History Social History Additional Details Category Social Info Options Details Migrated_SocialHX Migrated_SocialHX Fathers History: - Unknown. Mothers History: - Unknown., Problems Problem Type SNOMED Code ICD Code Onset Dates Problem Status W/U Status Risk Notes Problem Localized, primary osteoarthritis of the pelvic region and thigh (496325364) Unilateral primary osteoarthritis, right hip (M16.11) Active confirmed hadley-Unilateral primary osteoarthritis, right hip Problem Degeneration of lumbar intervertebral disc (46312518) Other intervertebral disc degeneration, lumbar region (M51.36) Active confirmed hadley-Other intervertebral disc degeneration, lumbar region Problem Degeneration of lumbosacral intervertebral disc (73388167) Other intervertebral disc degeneration, lumbosacral region (M51.37) Active confirmed hadley-Other intervertebral disc degeneration, lumbosacral region Problem Post-laminectomy syndrome (94520168) Postlaminectomy syndrome, not elsewhere classified (M96.1) Active confirmed hadley-Postlaminec erendira syndrome, not elsewhere classified Problem Lumbosacral spondylosis without myelopathy (17593946) Spondylosis w/o myelopathy or radiculopathy, lumbar region (M47.816) Active confirmed hadley-Spondylosis w/o myelopathy or radiculopathy, lumbar region Problem Spinal stenosis of lumbar region (75920495) Osseous and sublux stenos of intvrt foramin of lumbar region (M99.63) Active confirmed hadley-Osseous and sublux stenos of intvrt foramin of lumbar region Problem Lumbosacral spondylosis without myelopathy (06470191) Spondyls w/o myelopathy or radiculopathy, lumbosacr region (M47.817) Active confirmed hadley-Spondyls w/o myelopathy or radiculopathy, lumbosacr region Plan Of Treatment No Information Insurance Providers Payer Name Payer Address Payer Phone Subscriber Number Group Number Insured Name Patient Relationship to Insured Coverage Start Date Coverage End Date MEDICARE OF [place] [employer] [address] [place] [phone] [id number] Lc Perez Self - patient is the insured [employer] [address] [place] [phone] [id number] Lc Perez Self - patient is the insured Medical (General) History Surgical History Surgery Date(Month/Year) Knee Replacement -Bilateral in 2017-, Laminectomy in 1977/1997/2015 and Shoulder Surgery -Right Left in 1998/2005/2006-,
--- OUTSIDE RECORDS SUMMARY | 2025-04-01 16:09 | XMS_ITS ---
Author Organization [facility] Address [address] [place] [address] Care Team Providers Care Estimation Manager Name Role Phone Tessa Warner SURGEON ASSISTANT Primary Care Provider [phone] Active Problems Patient Care Coordination No te Formatting of this note migh t be different from the original. Permission given by patient to speak with his daughter, Meche Perez, regarding his health care needs. CAITLYN BROWN RN 12/31/2019 12:26 Problem Noted Date Diagnosed Date Pancytopenia 10/02/2022 CAD in circle artery 10/01/2022 Symptomatic anemia 09/30/2022 Myelodysplastic syndrome 09/30/2022 Coronary artery disease 09/29/2022 Overview (09/29/2022): Added automatically from request for surgery [id number] Dyspnea 09/29/2022 Dyspnea on exertion 09/29/2022 Sinus bradycardia 03/07/2022 LBBB (left bundle branch block) 03/07/2022 Prostate cancer 12/02/2021 STEMI (ST elevation myocardial infarction) 08/14 ST elevation myocardial infa rction (STEMI), unspecified artery 08/14/2021 Cardiac arrest with ventricular fibrillation Cervical radiculopathy 01/30/2020 S/P coronary artery stent placement 01/18/2020 Overview (01/18/2020): 2014, 2015, 2018 Cervical disc disorder at C4-C5 level with radic ulopathy 12/31/2019 Overview (12/31/2019): Left C5 radic Cervical disc disorder at C5-C6 level with radic ulopathy 12/31/2019 Overview (12/31/2019): Left C6 S/P cervical spinal fusion 11/02/2019 Overview (03/10/2020): 01/31/20 C5-6 & C6-7 ant fusion (M Krag) 11/29/11 C7-T1 S/P lumbar laminectomy 11/02/2019 Overview (11/02/2019): 1977?: lumb level?, disc alley excision (?[facility]) 03/18/98: left L4-5 disc herniation excision (M Krag) ?2013: lumb stenosis decompression (?level, ?[place]) Cardiac pacemaker in situ 11/02/2019 Overview (11/02/2019): 09/23/08 initial 04/24/16: new pacemaker, no change of leads S/P carpal tunnel release 11/02/2019 Overview (11/02/2019): Left: 03/29/06 (DARREN Christian) Right: ?Jun 2019 (Dr Edwards [facility]) S/P decompression of ulnar nerve at elbow 2019 Overview (11/02/2019): approx Jul 2019: right nerve transposition (Dr Edwards [facility]) Pain of left upper extremity 11/02/2019 Overview (11/02/2019): Recurrence Aug 2019 (also had in 2011) Neck pain 05/21/2007 Overview (11/02/2019): spont onset Degeneration of lumbar or lumbosacral interverte bral disc 11/14/2006 Current Treatment and Therapy Plans No current plan information found. Past Treatment and Therapy Plans No past plan information found. Lifetime Dose Tracking * Chemical Lifetime Dose Automatic Entry Manual Entr y Fluoro Time 42.19 minutes 6.49 minutes 35.7 minutes Air Kerma 1,293.53 mGy 276.53 mGy 1,017 mGy Dose Area Product 22,429.018 mGy-cm2 3,628.018 mGy-cm2 18,801 mGy-cm2
--- OUTSIDE RECORDS SUMMARY | 2025-04-01 16:09 | XMS_ITS | Clinical Summary ---
Author Organization [facility] Address [address] [place] [address] Care Team Providers Care Sedimentationist Name Role Phone Tessa Warner LIME HIDE INSPECTOR Primary Care Provider [phone] Allergies Active Allergy Reactions Criticality Noted Date Comments Penicillins Hives High 11/26/2008 Medications MULTIVITAMINS (MULTIVITAMIN ORAL) Take by mouth every morning. Active atorvastatin (LIPITOR) 40 mg tablet Take 40 mg by mouth every morning. Active cholecalciferol , Vitamin D3, 1,000 unit tablet Take 1,000 Units by mouth every morning. Active fenofibrate micronized (LOFIBRA) 67 mg capsule Take 67 mg by mouth every morning before breakfast. Active nitroglycerin (NITROSTAT) 0.[address] 1 Tablet under the tongue every 5 minutes as needed for Chest Pain. If chest pain persists after 3 doses, call [phone] Tablet 1 09/16/2021 Active APALUTAMIDE ORAL Take 60 mg by mouth at bedtime. Active ascorbic acid, vitamin C, 1,000 mg tablet Take 1,000 mg by mouth every morning. Active ferrous sulfate 324 mg (65 mg iron) tablet,delayed release (DR/EC) Take 324 mg by mouth daily with breakfast. Active metoprolol TARtrate (LOPRESSOR) 50 mg tablet TAKE 1 TABLET BY MOUTH TWICE DAILY 180 Tablet 1 08/09/2022 Active Active Problems Patient Care Coordination No te Formatting of this note migh t be different from the original. Permission given by patient to speak with his daughter, Meche Perez, regarding his health care needs. CAITLYN BROWN RN 12/31/2019 12:26 Problem Noted Date Diagnosed Date Pancytopenia 10/02/2022 CAD in [place] artery 10/01/2022 Symptomatic anemia 09/30/2022 Myelodysplastic syndrome 09/30/2022 Coronary artery disease 09/29/2022 Overview (09/29/2022): Added automatically from request for surgery [id number] Dyspnea 09/29/2022 Dyspnea on exertion 09/29/2022 Sinus bradycardia 03/07/2022 LBBB (left bundle branch block) 03/07/2022 Prostate cancer 12/02/2021 STEMI (ST elevation myocardial infarction) 08/14 ST elevation myocardial infa rction (STEMI), unspecified artery 08/14/2021 Cardiac arrest with ventricular fibrillation Cervical radiculopathy 01/30/2020 S/P coronary artery stent placement 01/18/2020 Overview (01/18/2020): 2014, 2015, 2017 Cervical disc disorder at C4-C5 level with [...] left L4-5 disc herniation excision (M Krag) ?2014: lumb stenosis decompression (?level, ?[place]) Cardiac pacemaker in situ 11/02/2019 Overview (11/02/2019): 09/23/08 initial 04/24/16: new pacemaker, no change of leads S/P carpal tunnel release 11/02/2019 Overview (11/02/2019): Left: 03/29/06 (DARREN Christian) Right: ?Jun 2019 ([facility]) S/P decompression of ulnar nerve at elbow 2019 Overview (11/02/2019): approx Jul 2019: right nerve transposition (Flori Nelson) Pain of left upper extremity 11/02/2019 Overview (11/02/2019): Recurrence Aug 2019 (also had in 2011) Neck pain 05/21/2007 Overview (11/02/2019): spont onset Degeneration of lumbar or lumbosacral interverte bral disc 11/14/2006 Immunizations Immunization Administration Dates Next Due Covid-19 mRNA Vaccine (MODER NA COVID-19) PF 0.5 ml IM (12 yrs+) 03/21/2021,07/19/2020,06/21/2020 Historical Influenza Vaccine, Unspecified 2018,02/01/2015 Historical Pneumococcal Vacc ine, Unspecified 05/21/2014,05/21/2007 Influenza Vaccine =>3yo Split IM 02/01/2015 Influenza Vaccine =>3yo Spli t Preservative Free IM 03/18/2014 Influenza Vaccine High Dose (FLUZONE HIGH DOSE) PF 0.7 ml IM (65 yrs+) 03/02/2022 Influenza Vaccine Quad (FLUZ ONE) MDV w/preserv 0.5 ml IM (6 mos+) 03/21/2021 Influenza Vaccine Quad PF 0. 5 ml IM (6 mos+) 03/09/2020 Pneumococcal Conjugate Vacci ne 13-Valent (PCV13) (PREVNAR-13) 0.5 mL IM (6 wks+) 01/11/2015 Pneumococcal Polysaccharide (PPSV23) Vaccine (PNEUMOVAX-23) =>2YO SQ/IM 03/18/2014,05/21/2007 Zostavax (Zoster Vaccine, Live) SQ 05/21/2008 Surgical History Surgery Date Site/Laterality Comments APPENDECTOMY TURP ROTATOR CUFF REPAIR 03/29/[address] Henry CARPAL TUNNEL RELEASE 03/29/[address] Henry CERVICAL FUSION 11/29/2011 Ant fusion, R C8 root decompression (Dr Edwards, [facility]) LUMBAR DISCECTOMY 03/18/1998 Left Robert Johnson LUMBAR DISCECTOMY 1977? Right ?date, ?surgeon, ?side FOOT SURGERY CARPAL TUNNEL RELEASE ?Jun 2019 Right [facility], [place] ULNAR TUNNEL RELEASE approx Jul 2019 Right [facility] LUMBAR LAMINECTOMY 2013? lumbar spinal stenosis decompression ([facility]) PACEMAKER PLACEMENT 09/23/2008 per pt, telephone encounter 11/02/19 Robert Johnson PACEMAKER PLACEMENT 04/24/2016 new pacemaker, leads not changed (per pt, telephone encounter 11/02/19 Robert Clarencejoao) CORONARY ANGIOPLASTY WITH STENT PLACEMENT 05/21/2014 - 05/20/2015 dates per patient recollection on 12/31/19 CORONARY ANGIOPLASTY WITH STENT PLACEMENT 05/21/2015 - 05/20/2016 CORONARY ANGIOPLASTY WITH STENT PLACEMENT 05/21/2017 - 05/20/2018 KNEE SURGERY Medical History Medical History Date Comments S/P coronary artery stent placement 01/18/20202014, 2015, 2017 Hypertension tx w/ meds Hyperlipidemia tx w/ meds Sleep apnea has a CPAP but d oesn't use. 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 Can do 2 flights w/o SOB GERD (gastroesophageal reflux disease) tx w/ meds . able to lay flat Anxiety Post PTCA stents placed and 2018 total of 3 Neck pain Numbness 10/2019 left arm Chronic pain Prostate cancer (HCC-CMS) Social History Tobacco Use Types Packs/Day Years Used Date Smoking Tobacco: Former Cigarettes 2 24 1 - 1983 Smokeless Tobacco: Never Tobacco Cessation:Counseling Given: Not Answered Alcohol Use Standard Drinks/Week Comments Not Currently [...] 11:49 EDT Sexual Orientation Not on file Last Filed Vital Signs Vital Sign Reading Time Taken Comments Blood Pressure 128/71 10/02/2022 0810 EDT Pulse 60 10/02/2022 0810 EDT Temperature 36.6 C (97.8 F) 10/02/2022 0810 EDT Respiratory Rate 18 10/02/2022 0810 EDT Oxygen Saturation 97% 10/02/2022 0810 EDT Inhaled Oxygen Concentration - - Weight 90.5 kg (199 lb 8.3 oz) 10/01/20222052 E DT Height 172.7 cm (5' 8 ) 10/01/20222052 EDT Body Mass Index 30.34 10/01/20222052 EDT Plan of Treatment Health Maintenance Due Date Last Done Comments Advance Directive 1958 Preventive Care Visit 1958 Pertussis (Adult) Immunization 11/20/1959 Tetanus (Adult) Immunization 11/20/1959 Cologuard (Colon Cancer Screening) 1985 Colonoscopy (Colon Cancer Screening) 1985 Colorectal Cancer Screening 1985 FIT Test (Colon Cancer Screening) 1985 Sigmoidoscopy (Colon Cancer Screening) 1985 Fall Risk Screening 2005 Shingles Immunization (2 of 3) 07/16/2008 05/21/2008 RSV Immunization ( or 60+ Years) (1 - 1-dose 75+ series) 11/20/2015 Depression Screening 12/02/2022 12/02/2021, 12/03/19 22 Social Determinants Of Health (SDOH) 12/02/2022 12/02/2021 COVID-19 Vaccine ( season) 2024 03/21/2021, 07/19/2020, 06/21/2020 Influenza Immunization (Adult) (#1) 2025 03/02/2022, 03/21/2021, 03/09/2020, Additional history exists Lipid Profile Screening (Cholesterol) 10/02/2027 10/01/2022, 03/29/2022, 08/15/2021, Additional history exists Pneumococcal Immunization (50+) Completed 01/11/2015, 05/21/2014, 03/18/2014, Additional history exists Meningococcal B Vaccine Aged Out No l onger eligible based on patient's age to complete this topic Medical Devices Implanted Type Area Office Equipment Mechanic Device Identifier Shelf Expiration Date Model / Serial / Lot Bone Iliac Crest Wedge Frz [id number] - [id number] Implanted:Qty: 1 on 01/30/2020 by Juan Johnson MD at [facility] Bone Left: Spine Cervical MUSCULOSKELETAL TRANSPLANT FDT 04/14/2024 [id number] / [id number] / Stent Coronary Drug Eluting Ss Rx 3.5x18mm Resolute Kennedy [id number] - [id number] Implanted:Qty: 1 on 08/14/2021 by Jaime Jesus MD at [facility] Drug Eluting Stent Left: Heart [employer] [id number] 02/08/2024 [id number] / / [id number] Stent Coronary Everomimus Eluting Pt Cr Otw 3.5x16mm Promus Elite [id number] - [id number] Implanted:Qty: 1 on 08/17/2021 by David rFanco MD at [facility] Drug Eluting Stent Right: Heart [employer] [id number] 09/20/2022 [id number] / / [id number] Lead Lead [employer] 1888TC / [id number] / Lead Lead / [id number] / Cervical Ant Fusion C7-T1; Mri Safe; [facility] 11/10/19 Ortho Implant Description:C7-T1 anterior f usion with plate & screws 11/29/11 ([facility]) per ; [facility] 11/10/19 Non-Conditiona l Pacemaker; Mri Un-Safe; [facility] 11/10/19 Pacemaker Description:Pacemaker: Medtr onic Advisa DR ANNE Mendez (S/N: [id number], Model: [id number]); leads: St Al 1888TC (per pt's wallet card; Dr. Patel) Non-Condtional. Will need op report from OSH and consultation with attendings and MRMD/MRSO to deem safe to scan in future. [facility] 11/10/19 Pacemaker Dual Chamber Mri Comp Rte Rspnsv Uniplr Advisa [id number] Pacemaker [employer] [id number] / [id number] / Plate Spinal Anterior Cervical Ti Level 2 6 Hole 31mm Cslp [id number] - [id number] Implanted:Qty: 1 on 01/30/2020 by Juan Johnson MD at [facility] Plate Implant N/A: Spine Cervical [employer] 450.162 / / Screw Spinal Solid Ti 1.8x5mm [id number] - [id number] Implanted:Qty: 5 on 01/30/2020 by Juan Johnson MD at [facility] Screw Implant N/A: Spine Cervical [employer] 497.78 / / Screw Spinal Solid Ti 4x14mm [id number] - [id number] Implanted:Qty: 1 on 01/30/2020 by Juan Johnson MD at [facility] Screw Implant N/A: Spine Cervical [employer] 450.132 / / Screw Spinal Solid Ti 4x16mm [id number] - [id number] Implanted:Qty: 4 on 01/30/2020 by Juan Johnson MD at [facility] Screw Implant N/A: Spine Cervical [employer] 450.133 / / Stent Coronary [facility] Sirolimus Eluting 2.5 X 15mm - [id number] Implanted:Qty: 1 on 08/14/2021 by Jaime Jesus MD at [facility] Stent Left: Heart [employer] [id number] 12/06/2022 [id number] / / [id number] Procedures Procedure Name Priority Date/Time Associated Diagnosis Comments LIPID PROFILE (INCLUDES CHOLESTEROL, TRIGLYCERIDES, HDL, LDL) Add-On 10/01/2022 4:47 EDT from Last 3 Months or Most Recently Relevant to Health Maintenance Results * LIPID PROFILE (INCLUDES CHOLESTEROL, TRIGLYCERIDES, HDL, LDL) (10/01/2022 4:47 EDT) Cholesterol 164 <200 mg/dL 10/02/2022 1:31 EDT [facility] Comment:Note that therapeuti c goals will differ between patients based on cardiac risk factors and current medical therapy. HDL 47 >=40 mg/dL 10/02/2022 1:31 [facility] Comment:Note that therapeuti c goals will differ between patients based on cardiac risk factors and current medical therapy. LDL, Calculated 96 <160 mg/dL 1:31 T [facility] Comment:Note that therapeuti c goals will differ between patients based on cardiac risk factors and current medical therapy. Triglyceride 104 <=150 mg/dL 10/02/2022 1:31 EDT [facility] Chol/HDL Ratio 3.5 See Note 10/02/2022 1:31 [facility] Comment:No reference range h as been established for CHOL/HDL ratio. Non HDL Cholesterol 117 <160 mg/dL 10/02/2022 1:31 T [facility] Comment:Note that therapeuti c goals will differ between patients based on cardiac risk factors and current medical therapy. Blood VENOUS BLOOD / Unknown Venipuncture / Unknown 10/01/2022 4:47 EDT 10/01/2022 5:22 EDT us Lauren Weiss MD CHEMISTRY & BLOOD GAS ORDERABLE S Final Result [facility] [address] [place] [address] from Last 3 Months or Most Recently Relevant to Health Maintenance Insurance [employer] MEDICARE [employer] MEDICARE Advance Directives For more information, please contact: [phone] * Full Code (Latest Code Status on File) Date Activated Date Inactivated Comments 10/01/2022 21:09 10/02/2022 16:42 Question Answer Comments When the patient has NO PULSE: Full Code / CPR Who Made the Decision? Default/Not Discussed * Full Code Date Activated Date Inactivated Comments 09/29/2022 14:25 10/01/2022 20:32 Question Answer Comments When the patient has NO PULSE: Full Code / CPR Who Made the Decision? Patient * Full Code Date Activated Date Inactivated Comments 08/14/2021 12:03 08/18/2021 14:08 Per daughter, DN R/DNI but changed to Full code temporarily for Emergent [facility] Question Answer Comments When the patient has NO PULSE: Full Code / CPR Who Made the Decision? Surrogate Basis for the Decision: Best Interest of the Pat ient Surrogate is: Surrogate is a n interested individual (e.g.; spouse, parent, adult relative, clergy; or other adult personally familiar with patient's goals & values who has exhibited care & concern). NOTE: [place] Statute has no priority of assignment. I confirm Surrogate is NOT: Surrogate is NOT the patient's healthcare provider; or the technical sales director, cement despatch operator, employee of a residential care facility, or correctional facility where the patient resides-unless related to the patient. I confirm * Full Code Date Activated Date Inactivated Comments 01/30/2020 6:40 02/01/2020 14:08 Question Answer Comments Reason for decision includes: Full code consistent with overall plan of care Who participated in the discussion? Not Discusse d Care Teams Sedimentationist Relationship Specialty Start Date End Date Tessa Warner NP [address] [place] [phone] PCP - General Family Medicine - Primary Care 11/10/21
== END 2025-04-01 14:17 | disposition home or self-care (01) ==
LOC: HO.HMCH 13:22
PROVIDERS: PCP Internal Medicine; Visit Provider Internal Medicine
DX: Z00.00 Encounter for general adult medical examination without abnormal findings (principal); C61 Malignant neoplasm of prostate; D46.9 Myelodysplastic syndrome, unspecified; L72.9 Follicular cyst of the skin and subcutaneous tissue, unspecified; M51.369 Other intervertebral disc degeneration, lumbar region without mention of lumbar back pain or lower extremity pain; K21.9 Gastro-esophageal reflux disease without esophagitis; E78.00 Pure hypercholesterolemia, unspecified; I25.10 Atherosclerotic heart disease of native coronary artery without angina pectoris; I10 Essential (primary) hypertension; D69.6 Thrombocytopenia, unspecified; Z23 Encounter for immunization

== ENCOUNTER → 2025-04-01 13:21 | Outpatient (BNVA) | payer MEDICARE, OTHER, SELFPAY | PROVIDERS: PCP Internal Medicine; Visit Provider Internal Medicine | DX: Z00.00 Encounter for general adult medical examination without abnormal findings (principal); L72.9 Follicular cyst of the skin and subcutaneous tissue, unspecified; M51.369 Other intervertebral disc degeneration, lumbar region without mention of lumbar back pain or lower extremity pain; C61 Malignant neoplasm of prostate; K21.9 Gastro-esophageal reflux disease without esophagitis; E78.00 Pure hypercholesterolemia, unspecified; I25.10 Atherosclerotic heart disease of native coronary artery without angina pectoris; I10 Essential (primary) hypertension; D69.6 Thrombocytopenia, unspecified; D46.9 Myelodysplastic syndrome, unspecified; Z23 Encounter for immunization | CPT/HCPCS: 90471; 90714; 96127 ==